=== PATIENT | female | born 1995 | race Caucasian/White ===

== ENCOUNTER 2017-07-30 12:00 | Emergency (ER) | payer OTHER ==
[2017-07-30] MEDS ORDERED: SODIUM CHLORIDE FLUSH 0.9% 10 ML SYRINGE IVP ONE (12:17)
[2017-07-30] MEDS ORDERED: SODIUM CHLORIDE 0.9% 1,000 ML IV ONE (14:26)
[2017-07-30] MEDS ORDERED: HYDROmorphone 1 MG/ML SYRINGE IVP STA ×2 (14:26→16:32)
[2017-07-30] MEDS ORDERED: ONDANSETRON 4 MG/2 ML VIAL IVP STA ×2 (14:26→16:33)
[2017-07-30] MEDS ORDERED: cefTRIAXone 1 GM in SODIUM CHLORIDE 0.9% MINIBAG 100 ML IV STA (14:27)
--- NOTE | 2017-07-30 14:27 | ED Physician Documentation ---
PD HPI ABD PAIN - Stated complaint Stated Complaint: ABD PX - Chief complaint Chief Complaint: Abd Pain - History obtained from History obtained from: Patient - History of Present Illness Timing - onset: How many weeks ago (1) Timing - duration: Weeks (1) Timing - details: Gradual onset, Still present Quality: Cramping, Aching, Pain Location: RLQ Radiation: Right flank Improved by: Position (lying on her side is only comfortable position.). No: Eating Worsened by: Position. No: Eating Associated symptoms: Nausea, Vomiting, Diarrhea (mild), Dysuria, Loss of appetite. No: Fever, Hematuria, Near syncope / syncope, Vaginal dc Similar symptoms before: Has not had sx before Recently seen: Clinic (for casting of ankle fracture few weeks ago. Had had some dysuria and seen in clinic few days ago and is on Macrobid for UTI based on UA.) Review of Systems Constitutional: reports: Chills, Myalgias. denies: Fever Nose: denies: Rhinorrhea / runny nose, Congestion Throat: denies: Sore throat Cardiac: denies: Chest pain / pressure Respiratory: denies: Dyspnea, Cough GI: reports: Abdominal Pain, Nausea, Vomiting, Diarrhea. denies: Bloody / black stool : reports: Dysuria. denies: Discharge Skin: denies: Rash, Lesions Neurologic: reports: Generalized weakness PD PAST MEDICAL HISTORY - Past Medical History Past Medical History: No Cardiovascular: None Respiratory: None Neuro: None Endocrine/Autoimmune: None GI: None - Past Surgical History Past Surgical History: No - Present Medications Home Medications: Ambulatory Orders Medication Instructions Recorded Confirmed HYDROcod/ACETAM 5/325 [[place] 5/325] 1 tab PO Q6H PRN #15 tablet 07/30/17 Nitrofurantoin [Macrobid] 100 mg PO DAILY 07/30/17 07/30/17 Ondansetron Odt [Zofran] 4 mg TL Q6H PRN #15 tablet 07/30/17 Phenazopyridine [Pyridium] 100 mg PO DAILY 07/30/17 07/30/17 - Allergies Allergies/Adverse Reactions: Allergies Allergy/AdvReac Type Severity Reaction Status Date / Time No Known Drug Allergies Allergy Verified 07/30/17 12:38 - Social History Does the pt smoke?: No Smoking Status: Never smoker Does the pt drink ETOH?: No Does the pt have substance abuse?: No - Immunizations Immunizations are current?: Yes PD ED PE NORMAL - Vitals Vital signs reviewed: Yes - General General: Alert and oriented X 3, Well developed/nourished, Other (appears uncomfortable and is curled on side with knees up. ) - HEENT HEENT: Pharynx benign. No: Moist mucous membranes - Neck Neck: Supple, no meningeal sign, No adenopathy - Cardiac Cardiac: RRR, No murmur - Respiratory Respiratory: Clear bilaterally - Abdomen Abdomen: Normal bowel sounds, Soft, Non distended, Other (tender mid abdomen and lower abd right more than left. ) - Female Female : Deferred - Rectal Rectal: Deferred - Back Back: No CVA TTP - Derm Derm: Normal color, Warm and dry, No rash - Extremities Extremities: No tenderness to palpate, Normal ROM s pain, Other (cast on left lower leg/ankle. No calf tenderness above the cast. ) - Neuro Neuro: Alert and oriented X 3, No motor deficit, Normal speech Results - Vitals Vitals: Vital Signs - 24 hr 07/30/17 07/30/17 07/30/17 12:02 14:59 17:52 Temperature 36.8 C 36.6 C Heart Rate 84 65 73 Respiratory 18 12 18 Rate Blood Pressure 128/67 120/61 117/66 O2 Saturation 95 95 99 Oxygen O2 Source Room air - Labs Labs: Laboratory Tests 07/30/17 07/30/17 07/30/17 12:20 12:20 14:46 WBC 7.4 RBC 4.75 Hgb 14.1 Hct 40.6 MCV 85.5 MCH 29.6 MCHC 34.6 RDW 13.1 Plt Count 326 MPV 8.7 Neut # 3.8 Lymph # 3.1 [place] # 0.3 Eos # 0.1 Baso # 0.1 Absolute Nucleated RBC 0.00 Nucleated RBCs 0.0 Sodium 139 Potassium 3.9 Chloride 105 Carbon Dioxide 26 Anion Gap 8.0 BUN 6 Creatinine 0.5 Estimated GFR (MDRD) 154 Glucose 97 Calcium 9.2 Total Bilirubin 0.4 AST 39 ALT 61 H Alkaline Phosphatase 63 Total Protein 8.1 Albumin 4.5 Globulin 3.6 Albumin/Globulin Ratio 1.3 Lipase 28 Urine Color YELLOW Urine Clarity CLEAR Urine pH 7.0 Ur Specific [place] 1.010 Urine Protein NEGATIVE Urine Glucose (UA) NEGATIVE Urine Ketones NEGATIVE Urine Occult Blood NEGATIVE Urine Nitrite NEGATIVE Urine Bilirubin NEGATIVE Urine Urobilinogen 0.2 (NORMAL) Ur Leukocyte Esterase SMALL H Urine RBC 0-5 Urine WBC 6-10 H Ur Squamous Epith Cells MANY Squamous H Urine Bacteria Rare Ur Microscopic Review INDICATED Urine Culture Comments NOT INDICATED Urine HCG, Qual NEGATIVE - Rads (name of study) abd/pelvic CT Radiology: Prelim report reviewed (no acute process to account for pain. Normal appendix. ), EMP read contemporaneously pelvic U/S Radiology: Prelim report reviewed (normal for age. Normal blood flow to ovaries. ) PD MEDICAL DECISION MAKING - ED course Complexity details: reviewed results (no obvious process on CT to cause the pain. Consider then pelvic cause and did U/S. This was normal as well. ), considered differential (given IV fluids and meds for symptoms. Urine is looking okay, so presume macrobid is working. She was having the stomach pain and some diarrhea prior to the abx, so not likely caused by that. Could be viral GE. Labs are looking okay otherwise (CT and US).), d/w patient Departure - Departure Disposition: Home, Self Care Clinical Impression: Nausea Abdominal pain Qualifiers: Abdominal location: lower abdomen, unspecified Qualified Code(s): R10.30 - Lower abdominal pain, unspecified Condition: Stable Record reviewed to determine appropriate education?: Yes Instructions: ED Abdominal Pain Unkn Cause Follow-Up: [facility] [Provider Group] Prescriptions: HYDROcod/ACETAM 5/325 [[place] 5/325] 1 tab PO Q6H PRN #15 tablet PRN Reason: Pain Ondansetron Odt [Zofran] 4 mg TL Q6H PRN #15 tablet PRN Reason: Nausea / Vomiting Comments: Small frequent fluids. Your CT and ultrasound did not show obvious cause for the pain at this time. You can continue the antibiotic you have for the bladder. Your urine today looks okay so presumably is clearing it. Use ondansetron if needed for the nausea. Tylenol or hydrocodone if needed for pains. Follow-up with your primary care in 2-3 days. Return sooner if worse again. Discharge Date/Time: 07/30/17 18:31
[2017-07-30] MEDS ORDERED: HYDROmorphone 1 MG/ML SYRINGE ONE ×2 (14:33→17:12)
[2017-07-30] MEDS ORDERED: ONDANSETRON 4 MG/2 ML VIAL ONE ×2 (14:34→17:12)
[2017-07-30] MEDS ORDERED: cefTRIAXone 1 GM VIAL ONE (14:34)
[2017-07-30 14:38] LABS: BASOPHILS # (AUTO) 0.1 10^3/uL (0.0-0.1); BASOPHILS % (AUTO) 0.9 %; EOSINOPHILS # (AUTO) 0.1 10^3/uL (0.0-0.7); EOSINOPHILS % (AUTO) 1.5 %; HCT - HEMATOCRIT 40.6 % (37.0-47.0); HGB - HEMOGLOBIN 14.1 g/dL (12.0-16.0); LYMPHOCYTES # (AUTO) 3.1 10^3/uL (1.5-3.5); MEAN CORPUSCULAR HEMOGLOBIN 29.6 pg (27.0-31.0); MEAN CORPUSCULAR HGB CONC 34.6 g/dL (32.0-36.0); MEAN CORPUSCULAR VOLUME 85.5 fL (81.0-99.0); MEAN PLATELET VOLUME 8.7 fL (7.9-10.8); MONOCYTES # (AUTO) 0.3 10^3/uL (0.0-1.0); MONOCYTES % (AUTO) 3.9 %; NEUTROPHILS # (AUTO) 3.8 10^3/uL (1.5-6.6); NEUTROPHILS % (AUTO) 51.7 %; RED BLOOD COUNT 4.75 10^6/uL (4.20-5.40); RED CELL DISTRIBUTION WIDTH 13.1 % (12.0-15.0); UNCORRECTED WHITE BLOOD COUNT 7.4 x10^3/uL; WHITE BLOOD COUNT 7.4 x10^3/uL (4.8-10.8)
[2017-07-30 14:46] LABS: ALBUMIN/GLOBULIN RATIO 1.3 (1.0-2.2); BILIRUBIN,TOTAL 0.4 mg/dL (0.2-1.0); CALCIUM 9.2 mg/dL (8.5-10.3); CREATININE 0.5 mg/dL (0.4-1.0); POTASSIUM 3.9 mmol/L (3.5-5.0); TOTAL PROTEIN 8.1 g/dL (6.7-8.2)
[2017-07-30 15:17] LABS: BILIRUBIN,URINE NEGATIVE (NEGATIVE)
[2017-07-30 15:21] LABS: HCG UR QUAL NEGATIVE; UA w/ MICROSCOPIC CHARGE YES
[2017-07-30 15:27] LABS: UR CULTURE IF IND NOT INDICATED
[2017-07-30] MEDS ORDERED: IOPAMIDOL-300 100 ML VIAL ONE (15:37)
[2017-07-30] MEDS ORDERED: IOPAMIDOL-300 100 ML VIAL IVP ONE (15:47)
--- NOTE | 2017-07-30 16:19 | CT Preliminary Report ---
Exam: CT Abdomen/Pelvis W/ IMPRESSION: 1. Negative exam. No CT abnormality to explain symptoms. 2. Appendix appears normal. 3. No localizing inflammatory process. [facility] SITE ID: [id number]
--- NOTE | 2017-07-30 16:22 | CT Report ---
EXAM: CT ABDOMEN AND PELVIS EXAM DATE: 07/30/2017 03:56 PM. CLINICAL HISTORY: RLQ pain for a week, worsening. COMPARISONS: None. TECHNIQUE: Routine helical CT imaging was performed through the abdomen and pelvis. IV contrast: 100 cc Isovue-300 IV. Enteric contrast: No. Reconstructions: Coronal and sagittal. In accordance with CT protocol optimization, one or more of the following dose reduction techniques w ere utilized for this exam: automated exposure control, adjustment of mA and/or KV based on patient s ize, or use of iterative reconstructive technique. FINDINGS: Lung Bases: Unremarkable. Liver: Normal. No masses. Gallbladder/Bile Ducts: Unremarkable. Spleen: Normal. Pancreas: Normal. Adrenal Glands: Normal. Kidneys: Normal. No masses or hydronephrosis. Peritoneal Cavity/Bowel: Normal. No free fluid, free air or adenopathy. No masses or acute inflammato ry process. The appendix is well visualized and normal. Pelvic Organs: Uterus and ovaries appear normal in size for age. Urinary bladder is unremarkable. Vasculature: No aneurysms or other significant abnormality. Bones: No significant abnormality. Other: None. IMPRESSION: 1. Negative exam. No CT abnormality to explain symptoms. 2. Appendix appears normal. 3. No localizing inflammatory process. [facility] Referring Provider Line: [phone] SITE ID: [id number]
[2017-07-30] MEDS ORDERED: KETOROLAC 60 MG/2 ML VIAL IVP STA (16:32)
[2017-07-30] MEDS ORDERED: FAMOTIDINE 20 MG/50 ML 50 ML IV ONE ×2 (16:34→17:12)
--- NOTE | 2017-07-30 17:45 | Ultrasound Preliminary Report ---
Exam: US Pel Non OB w/TV + Dop Ltd IMPRESSION: 1. Normal premenopausal sonographic appearance of the uterus and ovaries. 2. Arterial and venous blood flow present in the ovaries bilaterally. [facility] SITE ID: [id number]
--- NOTE | 2017-07-30 17:48 | Ultrasound Report ---
EXAM: PELVIC ULTRASOUND EXAM DATE: 07/30/2017 05:31 PM. CLINICAL HISTORY: Right lower abdominal pain for few days. LMP 07/07/2017. COMPARISON: CT evidence of pelvis, same day. TECHNIQUE: Realtime transabdominal pelvic scan performed to identify the uterus and adnexa and as an overview of other pelvic structures, followed by transvaginal scan to provide greater detail of the u terus and adnexa, with static image documentation. Doppler spectral analysis performed to evaluate bl ood flow to the ovaries given reported right-sided pain. FINDINGS: Uterus: Anteverted position. 7.3 x 2.7 x 4.0 cm, volume 41 cc. Homogeneous myometrial echotexture. Endometrium: 5 mm. Normal. Cervix: Nabothian cysts. Right Ovary: 3.6 x 2.0 x 3.7 cm, volume 13.9 cc. Normal echotexture. Contains normal follicles. Arter ial and venous blood flow are present. Left Ovary: 3.9 x 2.0 x 2.2 cm, volume 9.0 cc. Normal echotexture. Contains normal follicles. Arteria l and venous blood flow are present. Free Fluid: Trace anechoic intrapelvic free fluid, within physiologic limits in a young female. Other: None. IMPRESSION: 1. Normal premenopausal sonographic appearance of the uterus and ovaries. 2. Arterial and venous blood flow present in the ovaries bilaterally. [facility] Referring Provider Line: [phone] SITE ID: [id number]
[2017-07-30] MEDS ORDERED: KETOROLAC 30 MG/ML VIAL ONE (17:51)
[2017-07-30 17:53] VITALS: BP 117/66
== END 2017-07-30 18:31 | disposition home or self-care (01) ==
LOC: ED 12:00
DX: R11.2 Nausea with vomiting, unspecified (principal); R10.31 Right lower quadrant pain
CPT/HCPCS: 36415; 74177; 76830; 76856; 80053; 81001; 81025; 83690; 85025; 93976; 96374; 96375; 96376; 99284; J1170; Q9967; 81003; 87086

== ENCOUNTER 2017-08-01 00:20 | Outpatient (CLI) | payer OTHER | END 2017-08-01 00:21 | disposition EMS.NT | LOC: EMS 00:20 | PROVIDERS: ATTEND Surgery | DX: M54.9 Dorsalgia, unspecified (principal) ==

== ENCOUNTER 2017-08-01 01:06 | Emergency (ER) | payer OTHER ==
[2017-08-01] MEDS ORDERED: SODIUM CHLORIDE 0.9% 1,000 ML IV ONE ×3 (03:25→05:30)
[2017-08-01] MEDS ORDERED: KETOROLAC 60 MG/2 ML VIAL IVP STA (03:25)
[2017-08-01] MEDS ORDERED: ONDANSETRON 4 MG/2 ML VIAL IVP STA ×2 (03:25→06:48)
[2017-08-01 03:32] LABS: BASOPHILS # (AUTO) 0.1 10^3/uL (0.0-0.1); BASOPHILS % (AUTO) 0.8 %; EOSINOPHILS # (AUTO) 0.1 10^3/uL (0.0-0.7); EOSINOPHILS % (AUTO) 1.4 %; HCT - HEMATOCRIT 39.6 % (37.0-47.0); HGB - HEMOGLOBIN 13.8 g/dL (12.0-16.0); LYMPHOCYTES # (AUTO) 3.3 10^3/uL (1.5-3.5); LYMPHOCYTES % (AUTO) 39.7 %; MEAN CORPUSCULAR HEMOGLOBIN 30.3 pg (27.0-31.0); MEAN CORPUSCULAR HGB CONC 34.8 g/dL (32.0-36.0); MEAN CORPUSCULAR VOLUME 87.2 fL (81.0-99.0); MEAN PLATELET VOLUME 8.7 fL (7.9-10.8); MONOCYTES # (AUTO) 0.6 10^3/uL (0.0-1.0); MONOCYTES % (AUTO) 7.2 %; NEUTROPHILS # (AUTO) 4.3 10^3/uL (1.5-6.6); NEUTROPHILS % (AUTO) 50.9 %; NUCLEATED RED BLOOD CELLS AUTO 0.2 /100WBC; RED BLOOD COUNT 4.54 10^6/uL (4.20-5.40); RED CELL DISTRIBUTION WIDTH 13.3 % (12.0-15.0); UNCORRECTED WHITE BLOOD COUNT 8.4 x10^3/uL; WHITE BLOOD COUNT 8.4 x10^3/uL (4.8-10.8)
[2017-08-01] MEDS ORDERED: ONDANSETRON 4 MG/2 ML VIAL ONE ×2 (03:32→06:55)
[2017-08-01] MEDS ORDERED: KETOROLAC 30 MG/ML VIAL ONE (03:32)
[2017-08-01] MEDS ORDERED: SODIUM CHLORIDE FLUSH 0.9% 10 ML SYRINGE IVP ONE (03:35)
[2017-08-01 03:40] LABS: ALBUMIN/GLOBULIN RATIO 1.3 (1.0-2.2); BILIRUBIN,TOTAL 0.4 mg/dL (0.2-1.0); CALCIUM 8.6 mg/dL (8.5-10.3); CREATININE 0.6 mg/dL (0.4-1.0); POTASSIUM 3.6 mmol/L (3.5-5.0); TOTAL PROTEIN 7.9 g/dL (6.7-8.2)
--- NOTE | 2017-08-01 04:53 | ED Physician Documentation ---
PD HPI ABD PAIN - Stated complaint Stated Complaint: ABDOMINAL PAIN - Chief complaint Chief Complaint: Abd Pain - History obtained from History obtained from: Patient, Family - History of Present Illness Timing - onset: How many days ago (5) Timing - duration: Days (5) Timing - details: Gradual onset, Still present Quality: Sharp, Pain Location: RUQ Radiation: Right flank Improved by: Laying still Worsened by: Moving, Breathing, Position, Palpation Associated symptoms: Nausea, Vomiting. No: Diarrhea, Constipation Similar symptoms before: Has not had sx before Recently seen: Emergency Dept (Seen in the ED with pain 2 days ago with w/u including imaging) - Additional information Additional information: 22-year-old female has had a recent urinary tract infection was put on some Macrobid about 5 days ago. She began to develop pain and was seen in the emergency department 2 days ago and had workup including imaging with CT and ultrasound. She continued to have pain pain medication does not seem to be helping and she continues to have urinary symptoms. She is in significant pain in her right flank and has been in agony for hours. Review of Systems Constitutional: reports: Chills, Fatigue Eyes: denies: Decreased vision Ears: denies: Ear pain Nose: denies: Congestion Throat: denies: Sore throat Cardiac: denies: Chest pain / pressure, Palpitations Respiratory: denies: Dyspnea, Cough GI: reports: Abdominal Pain, Nausea, Vomiting : reports: Dysuria, Frequency. denies: Hematuria Skin: denies: Rash Musculoskeletal: reports: Back pain. denies: Neck pain, Extremity pain PD PAST MEDICAL HISTORY - Past Medical History Cardiovascular: None Respiratory: None Neuro: None Endocrine/Autoimmune: None GI: None - Past Surgical History Past Surgical History: No - Present Medications Home Medications: Ambulatory Orders Medication Instructions Recorded Confirmed HYDROcod/ACETAM 5/325 [[place] 5/325] 1 tab PO Q6H PRN #15 tablet 07/30/17 Nitrofurantoin [Macrobid] 100 mg PO DAILY 07/30/17 07/30/17 Ondansetron Odt [Zofran] 4 mg TL Q6H PRN #15 tablet 07/30/17 Phenazopyridine [Pyridium] 100 mg PO DAILY 07/30/17 07/30/17 HYDROcod/ACETAM 5/325 [[place] 5/325] 1 - 2 ea PO Q6H PRN #15 tablet 08/01/17 Ondansetron Odt [Zofran] 4 mg TL Q6H PRN #10 tablet 08/01/17 Sulfamethoxazole/Trimethoprim 1 each PO BID #14 tablet 08/01/17 [Sulfamethoxazole-Tmp Ds Tablet] - Allergies Allergies/Adverse Reactions: Allergies Allergy/AdvReac Type Severity Reaction Status Date / Time No Known Drug Allergies Allergy Verified 07/30/17 12:38 - Social History Does the pt smoke?: No Smoking Status: Never smoker Does the pt drink ETOH?: No Does the pt have substance abuse?: No - Immunizations Immunizations are current?: Yes PD ED PE NORMAL - Vitals Vital signs reviewed: Yes (Normal) - General General: Well developed/nourished, Other (The patient appears to be acutely in pain she is whimpering and laying in the position on her left side. She is favoring her right flank.) - HEENT HEENT: Atraumatic, PERRL - Neck Neck: Supple, no meningeal sign, No bony TTP - Cardiac Cardiac: RRR, No murmur - Respiratory Respiratory: No respiratory distress, Clear bilaterally - Abdomen Abdomen: Soft, Other (Right upper quadrant tenderness with maximal tenderness to the right kidney with bimanual palpation.) - Back Back: No spinal TTP, Other (Bilateral CVA tenderness much worse on the right than the left.) - Derm Derm: Normal color, Warm and dry, No rash - Extremities Extremities: No deformity, No edema - Neuro Neuro: No motor deficit, No sensory deficit, Normal speech - Psych Psych: Other (The mood is withdrawn and the affect is flat.) Results - Vitals Vitals: Vital Signs - 24 hr 08/01/17 01:27 Temperature 37.0 C Heart Rate 86 Respiratory 20 Rate Blood Pressure 129/78 O2 Saturation 99 Oxygen O2 Source Room air - Labs Labs: Laboratory Tests 08/01/17 08/01/17 08/01/17 01:56 01:56 04:59 WBC 8.4 RBC 4.54 Hgb 13.8 Hct 39.6 MCV 87.2 MCH 30.3 MCHC 34.8 RDW 13.3 Plt Count 321 MPV 8.7 Neut # 4.3 Lymph # 3.3 [place] # 0.6 Eos # 0.1 Baso # 0.1 Absolute Nucleated RBC 0.01 Nucleated RBCs 0.2 Sodium 138 Potassium 3.6 Chloride 102 Carbon Dioxide 29 Anion Gap 7.0 BUN 10 Creatinine 0.6 Estimated GFR (MDRD) 125 Glucose 119 H Calcium 8.6 Total Bilirubin 0.4 AST 36 ALT 58 Alkaline Phosphatase 62 Total Protein 7.9 Albumin 4.4 Globulin 3.5 Albumin/Globulin Ratio 1.3 Lipase 25 Urine Color YELLOW Urine Clarity SL. CLOUDY Urine pH 7.0 Ur Specific [place] <=1.005 Urine Protein NEGATIVE Urine Glucose (UA) NEGATIVE Urine Ketones NEGATIVE Urine Occult Blood TRACE-INTA Urine Nitrite POSITIVE H Urine Bilirubin NEGATIVE Urine Urobilinogen 0.2 (NORMAL) Ur Leukocyte Esterase LARGE H Urine RBC 0-5 Urine WBC 11-25 H Ur Squamous Epith Cells MOD Squamous H Urine Bacteria None Seen Ur Microscopic Review INDICATED Urine Culture Comments NOT INDICATED Urine HCG, Qual 08/01/17 05:50 WBC RBC Hgb Hct MCV MCH MCHC RDW Plt Count MPV Neut # Lymph # [place] # Eos # Baso # Absolute Nucleated RBC Nucleated RBCs Sodium Potassium Chloride Carbon Dioxide Anion Gap BUN Creatinine Estimated GFR (MDRD) Glucose Calcium Total Bilirubin AST ALT Alkaline Phosphatase Total Protein Albumin Globulin Albumin/Globulin Ratio Lipase Urine Color Urine Clarity Urine pH Ur Specific [place] 1.010 Urine Protein Urine Glucose (UA) Urine Ketones Urine Occult Blood Urine Nitrite Urine Bilirubin Urine Urobilinogen Ur Leukocyte Esterase Urine RBC Urine WBC Ur Squamous Epith Cells Urine Bacteria Ur Microscopic Review Urine Culture Comments Urine HCG, Qual NEGATIVE PD MEDICAL DECISION MAKING - ED course Complexity details: reviewed results, re-evaluated patient, considered differential, d/w patient, d/w family ED course: 22-year-old female with acute right flank pain appears to have pyelonephritis. She has significant pain and she is dehydrated. She is given IV saline and Toradol with some improvement in her pain examination of the urine shows what appears to be infected urine and the patient is on Macrobid. IV Rocephin is administered and a catheterized specimen is obtained prior to the rocephin. She does have some relief of her pain with the use of dilaudid. Departure - Departure Disposition: 01 Home, Self Care Clinical Impression: Pyelonephritis Condition: Stable Instructions: ED Kidney Infec Female Follow-Up: [facility] [Provider Group] Prescriptions: HYDROcod/ACETAM 5/325 [[place] 5/325] 1 - 2 ea PO Q6H PRN #15 tablet PRN Reason: Pain Sulfamethoxazole/Trimethoprim [Sulfamethoxazole-Tmp Ds Tablet] 1 each PO BID # 14 tablet Ondansetron Odt [Zofran] 4 mg TL Q6H PRN #10 tablet PRN Reason: Nausea / Vomiting Comments: Today it appears you have a kidney infection and the antibiotic you have been on does not appear to be treating this infection. Stop taking the Macrobid and start the sulfamethoxazole trimethoprim.
[2017-08-01 05:15] LABS: BILIRUBIN,URINE NEGATIVE (NEGATIVE)
[2017-08-01 05:16] LABS: UA w/ MICROSCOPIC CHARGE YES
[2017-08-01] MEDS ORDERED: cefTRIAXone 1 GM in SODIUM CHLORIDE 0.9% MINIBAG 100 ML IV STA (05:17)
[2017-08-01 05:27] LABS: UR CULTURE IF IND NOT INDICATED
[2017-08-01] MEDS ORDERED: HYDROmorphone 1 MG/ML SYRINGE IVP STA (05:30)
[2017-08-01] MEDS ORDERED: HYDROmorphone 1 MG/ML SYRINGE ONE (05:37)
[2017-08-01] MEDS ORDERED: cefTRIAXone 1 GM VIAL ONE (05:38)
[2017-08-01 06:22] LABS: HCG UR QUAL NEGATIVE
[2017-08-01 07:13] LABS: BILIRUBIN,URINE NEGATIVE (NEGATIVE); UA CHARGE (STRIP ONLY) YES; UR CULTURE IF IND NOT INDICATED
[2017-08-01] MEDS ORDERED: PROMETHAZINE INJ 25 MG in SODIUM CHLORIDE 0.9% 50 ML IV STA (07:42)
[2017-08-01] MEDS ORDERED: PROMETHAZINE 25 MG/1 ML VIAL ONE (07:49)
[2017-08-01 08:32] VITALS: BP 101/64
== END 2017-08-01 08:32 | disposition home or self-care (01) ==
LOC: ED 01:06
DX: N12 Tubulo-interstitial nephritis, not specified as acute or chronic (principal); E86.0 Dehydration
CPT/HCPCS: 36415; 51701; 80053; 81001; 81003; 81025; 83690; 85025; 96365; 96375; 96376; 99283; 99284; J1170; J7040; 87086

== ENCOUNTER 2017-08-27 02:37 | Emergency (ER) | payer OTHER ==
--- NOTE | 2017-08-27 03:52 | ED Physician Documentation ---
History of Present Illness - Stated complaint Stated Complaint: BACK PAIN - Chief complaint Chief Complaint: Back Pain - History obtained from History obtained from: Patient - History of Present Illness Timing: How many days ago (9) Pain level now: 8 Quality: sharp Improved by: nothing Worsened by: worse with PO intake, which also results in nausea - Additonal information Additional information: patient complains of a sharp pain in her back right flank radiating to right lower quadrant. Pain has been going on for nine days. Pain is worse with oral intake, which also leads to nausea and occasionally emesis. She had similar episodes twice last month and was evaluated in this emergency department, treated for pyelonephritis. unfortunately, the urine sample was contaminated with squamous skin cells, and thus a culture was not performed. she said she was seen at [facility] for follow up, but no tests nor treatments were done or provided. she returns to to recurrence of symptoms. Review of Systems Constitutional: reports: Reviewed and negative Cardiac: reports: Reviewed and negative Respiratory: reports: Reviewed and negative GI: reports: Abdominal Pain, Nausea, Vomiting : reports: Dysuria, Frequency Musculoskeletal: reports: Back pain PD PAST MEDICAL HISTORY - Past Medical History Cardiovascular: None Respiratory: None Neuro: None Endocrine/Autoimmune: None GI: None - Past Surgical History Past Surgical History: No - Present Medications Home Medications: Ambulatory Orders Medication Instructions Recorded Confirmed HYDROcod/ACETAM 5/325 [[place] 5/325] 1 - 2 ea PO Q6H PRN #15 tablet 08/27/17 Ondansetron HCl [Zofran] 4 mg PO Q6HR PRN #14 tablet 08/27/17 - Allergies Allergies/Adverse Reactions: Allergies Allergy/AdvReac Type Severity Reaction Status Date / Time No Known Drug Allergies Allergy Verified 08/27/17 02:46 - Social History Does the pt smoke?: No Smoking Status: Never smoker Does the pt drink ETOH?: No Does the pt have substance abuse?: No - Immunizations Immunizations are current?: Yes PD ED PE NORMAL - Vitals Vital signs reviewed: Yes - General General: Alert and oriented X 3, No acute distress, Well developed/nourished - HEENT HEENT: Moist mucous membranes - Cardiac Cardiac: RRR, No murmur - Respiratory Respiratory: No respiratory distress, Clear bilaterally - Abdomen Abdomen: Soft, Non tender, Non distended - Back Back: No CVA TTP - Derm Derm: Normal color, Warm and dry, No rash PD ED PE EXPANDED - Abdomen Abdomen: Tender to palpation, RLQ Results - Vitals Vitals: Vital Signs - 24 hr 08/27/17 08/27/17 05:26 08:51 Temperature 36.4 C L Heart Rate 74 64 Respiratory 18 12 Rate Blood Pressure 122/72 122/63 O2 Saturation 99 100 Oxygen O2 Source Room air - Labs Labs: Laboratory Tests 08/27/17 08/27/17 08/27/17 04:20 04:20 05:20 WBC 9.4 RBC 4.58 Hgb 13.9 Hct 39.4 MCV 86.1 MCH 30.4 MCHC 35.3 RDW 13.0 Plt Count 322 MPV 8.0 Neut # 5.8 Lymph # 2.6 [place] # 0.6 Eos # 0.3 Baso # 0.1 Absolute Nucleated RBC 0.00 Nucleated RBC % 0.0 Sodium 137 Potassium 3.8 Chloride 106 Carbon Dioxide 25 Anion Gap 6.0 BUN 10 Creatinine 0.5 Estimated GFR (MDRD) 154 Glucose 107 H Calcium 8.9 Total Bilirubin 0.6 AST 39 ALT 58 Alkaline Phosphatase 65 Total Protein 8.3 H Albumin 4.6 Globulin 3.7 Albumin/Globulin Ratio 1.2 Lipase 35 Urine Color YELLOW Urine Clarity CLEAR Urine pH 6.5 Ur Specific [place] 1.015 Urine Protein NEGATIVE Urine Glucose (UA) NEGATIVE Urine Ketones NEGATIVE Urine Occult Blood NEGATIVE Urine Nitrite NEGATIVE Urine Bilirubin NEGATIVE Urine Urobilinogen 0.2 (NORMAL) Ur Leukocyte Esterase NEGATIVE Ur Microscopic Review NOT INDICATED Urine Culture Comments NOT INDICATED - Rads (name of study) CT A/P Radiology: Prelim report reviewed, See rad report PD MEDICAL DECISION MAKING - ED course Complexity details: reviewed results, re-evaluated patient, considered differential, d/w patient Departure - Departure Disposition: 01 Home, Self Care Clinical Impression: Abdominal pain Condition: Good Instructions: ED Abdominal Pain Unkn Cause Follow-Up: [facility] [Provider Group] Prescriptions: Ondansetron HCl [Zofran] 4 mg PO Q6HR PRN #14 tablet PRN Reason: Nausea / Vomiting HYDROcod/ACETAM 5/325 [[place] 5/325] 1 - 2 ea PO Q6H PRN #15 tablet PRN Reason: Pain Discharge Date/Time: 08/27/17 08:57
[2017-08-27] MEDS ORDERED: KETOROLAC 60 MG/2 ML VIAL IVP STA (04:17)
[2017-08-27] MEDS ORDERED: SODIUM CHLORIDE 0.9% 1,000 ML IV STA (04:17)
[2017-08-27] MEDS ORDERED: ONDANSETRON 4 MG/2 ML VIAL IVP STA (04:17)
[2017-08-27] MEDS ORDERED: HYDROmorphone 0.5 MG/0.5 ML SYRINGE IVP STA (04:18)
[2017-08-27] MEDS ORDERED: HYDROmorphone 1 MG/ML SYRINGE ONE (04:23)
[2017-08-27] MEDS ORDERED: ONDANSETRON 4 MG/2 ML VIAL ONE (04:23)
[2017-08-27] MEDS ORDERED: KETOROLAC 30 MG/ML VIAL ONE (04:23)
[2017-08-27 04:29] LABS: BASOPHILS # (AUTO) 0.1 10^3/uL (0.0-0.1); BASOPHILS % (AUTO) 1.2 %; EOSINOPHILS # (AUTO) 0.3 10^3/uL (0.0-0.7); EOSINOPHILS % (AUTO) 2.7 %; HCT - HEMATOCRIT 39.4 % (37.0-47.0); HGB - HEMOGLOBIN 13.9 g/dL (12.0-16.0); LYMPHOCYTES # (AUTO) 2.6 10^3/uL (1.5-3.5); LYMPHOCYTES % (AUTO) 28.1 %; MEAN CORPUSCULAR HEMOGLOBIN 30.4 pg (27.0-31.0); MEAN CORPUSCULAR HGB CONC 35.3 g/dL (32.0-36.0); MEAN CORPUSCULAR VOLUME 86.1 fL (81.0-99.0); MONOCYTES # (AUTO) 0.6 10^3/uL (0.0-1.0); MONOCYTES % (AUTO) 6.5 %; NEUTROPHILS # (AUTO) 5.8 10^3/uL (1.5-6.6); NEUTROPHILS % (AUTO) 61.5 %; RED BLOOD COUNT 4.58 10^6/uL (4.20-5.40); UNCORRECTED WHITE BLOOD COUNT 9.4 x10^3/uL; WHITE BLOOD COUNT 9.4 x10^3/uL (4.8-10.8)
[2017-08-27 04:39] LABS: ALBUMIN/GLOBULIN RATIO 1.2 (1.0-2.2); BILIRUBIN,TOTAL 0.6 mg/dL (0.2-1.0); CALCIUM 8.9 mg/dL (8.5-10.3); CREATININE 0.5 mg/dL (0.4-1.0); POTASSIUM 3.8 mmol/L (3.5-5.0); TOTAL PROTEIN 8.3 g/dL (6.7-8.2)
[2017-08-27] MEDS ORDERED: IOPAMIDOL-300 100 ML VIAL ONE (04:39)
[2017-08-27] MEDS ORDERED: IOPAMIDOL-300 100 ML VIAL IVP ONE (05:05)
--- NOTE | 2017-08-27 05:28 | CT Preliminary Report ---
Exam: CT ABDOMEN/PELVIS W/ IMPRESSION: Stable negative abdomen and pelvis CT. [facility] SITE ID: [id number]
--- NOTE | 2017-08-27 05:33 | CT Report ---
EXAM: CT ABDOMEN AND PELVIS EXAM DATE: 08/27/2017 05:18 AM. CLINICAL HISTORY: Right lower quadrant pain. COMPARISONS: 07/30/[address] TECHNIQUE: Routine helical CT imaging was performed through the abdomen and pelvis. IV contrast: Yes . Enteric contrast: No . Reconstructions: Coronal and sagittal. In accordance with CT protocol optimization, one or more of the following dose reduction techniques w ere utilized for this exam: automated exposure control, adjustment of mA and/or KV based on patient s ize, or use of iterative reconstructive technique. FINDINGS: Lung Bases: Unremarkable. Liver: Unremarkable. No suspicious masses. Gallbladder/Bile Ducts: Unremarkable. Spleen: Unremarkable. Pancreas: Unremarkable. Adrenal Glands: Unremarkable. Kidneys: Unremarkable. No suspicious masses or hydronephrosis. Peritoneal Cavity/Bowel: No bowel obstruction or inflammatory process seen. No free air or significan t free fluid. No masses or adenopathy. The appendix is normal. No excessive stool burden. Pelvic Organs: Bladder, uterus, and adnexa appear unremarkable. Vasculature: No aneurysms or other significant abnormality. Bones: No significant abnormality. Other: None. IMPRESSION: Stable negative abdomen and pelvis CT. [facility] Referring Provider Line: [phone] SITE ID: [id number]
[2017-08-27 05:44] LABS: BILIRUBIN,URINE NEGATIVE (NEGATIVE); PH,URINE 6.5 PH (5.0-7.5)
[2017-08-27 06:39] LABS: UA CHARGE (STRIP ONLY) YES; UR CULTURE IF IND NOT INDICATED
[2017-08-27] MEDS ORDERED: ONDANSETRON ODT 4 MG TABLET TL STA (08:34)
[2017-08-27] MEDS ORDERED: HYDROcod/ACETAM 5/325 MG TABLET PO STA (08:34)
[2017-08-27] MEDS ORDERED: ONDANSETRON ODT 4 MG TABLET ONE (08:46)
[2017-08-27] MEDS ORDERED: HYDROcod/ACETAM 5/325 MG TABLET ONE (08:47)
[2017-08-27 08:52] VITALS: BP 122/63
== END 2017-08-27 08:57 | disposition home or self-care (01) ==
LOC: ED 02:37
DX: R10.31 Right lower quadrant pain (principal)
CPT/HCPCS: 36415; 74177; 80053; 81003; 83690; 85025; 96361; 96374; 96375; 96376; 99283; A9270; J1170; Q0162; Q9967; 81001; 87086

== ENCOUNTER 2017-08-28 23:11 | Outpatient (CLI) | payer OTHER | END 2017-08-28 23:12 | disposition critical access hospital (66) | LOC: EMS 23:11 | PROVIDERS: ATTEND Surgery | DX: M54.5 Low back pain (principal); R10.31 Right lower quadrant pain | CPT/HCPCS: A0425; A0429 ==

== ENCOUNTER 2017-08-28 23:29 | Emergency (ER) | payer OTHER ==
[2017-08-28] MEDS ORDERED: HYDROmorphone 0.5 MG/0.5 ML SYRINGE IVP SCH (23:45)
[2017-08-28] MEDS ORDERED: KETOROLAC 60 MG/2 ML VIAL IVP STA (23:53)
[2017-08-28] MEDS ORDERED: ONDANSETRON 4 MG/2 ML VIAL IVP STA (23:55)
--- NOTE | 2017-08-29 00:14 | ED Physician Documentation ---
PD HPI ABD PAIN - Stated complaint Stated Complaint: BACK PAIN - Chief complaint Chief Complaint: Back Pain - History obtained from History obtained from: Patient - History of Present Illness Timing - onset: How many weeks ago (1.5) Timing - details: Still present Quality: Pain Location: RUQ, RLQ Radiation: Right flank Worsened by: Eating Associated symptoms: Nausea, Vomiting (x 3 today.). No: Fever, Dysuria Recently seen: Emergency Dept - Treatment prior to arrival Treatment prior to arrival: Vicodin without relief. - Additional information Additional information: The patient is a 22-year-old female who presents with right flank pain radiating to her right upper quadrant, onset about 1-1/2 weeks ago, and worse since yesterday. She reports associated nausea and vomiting after eating. She has vomited 3 times today. She denies fever or dysuria. She was seen here last night with similar symptoms. Urinalysis at that time was negative, and CT scan of her abdomen and pelvis was negative. She was seen here 1 month ago with similar pain, and had CT scan of her abdomen and pelvis as well as ultrasound of her pelvis, which were nonrevealing. She was diagnosed with pyelonephritis and treated with Bactrim, but the urine sample was contaminated and no culture was performed. Review of Systems Constitutional: denies: Fever Nose: denies: Congestion Throat: denies: Sore throat Cardiac: denies: Chest pain / pressure Respiratory: denies: Dyspnea, Cough GI: reports: Abdominal Pain, Nausea, Vomiting. denies: Diarrhea : reports: LMP (May,), Irregular menses. denies: Dysuria, Vaginal bleeding Skin: denies: Rash Musculoskeletal: reports: Back pain (right flank) Neurologic: denies: Headache PD PAST MEDICAL HISTORY - Past Medical History Cardiovascular: None Respiratory: None Neuro: None Endocrine/Autoimmune: None GI: None : Chronic bladder infection - Past Surgical History Past Surgical History: No - Present Medications Home Medications: Ambulatory Orders Medication Instructions Recorded Confirmed HYDROcod/ACETAM 5/325 [Vicodin 1 - 2 ea PO Q6H PRN #20 tablet 08/29/17 5/325] raNITIdine [Zantac] 150 mg PO BID #30 tablet 08/29/17 - Allergies Allergies/Adverse Reactions: Allergies Allergy/AdvReac Type Severity Reaction Status Date / Time No Known Drug Allergies Allergy Verified 08/28/17 23:35 - Social History Does the pt smoke?: No Smoking Status: Never smoker Does the pt drink ETOH?: No Does the pt have substance abuse?: No - Immunizations Immunizations are current?: Yes PD ED PE NORMAL - Vitals Vital signs reviewed: Yes (borderline hypertension) - General General: Alert and oriented X 3, Well developed/nourished, Other (Appears uncomfortable, holding right side of abdomen.) - HEENT HEENT: Atraumatic, Pharynx benign - Neck Neck: No adenopathy, No JVD - Cardiac Cardiac: RRR, No murmur - Respiratory Respiratory: No respiratory distress, Clear bilaterally - Abdomen Abdomen: Normal bowel sounds, Soft, No organomegaly, Other (Tender to palpation of RUQ, with positive Abraham's sign. Also tender, but less so, in RLQ.) - Back Back: Other (Right CVA tenderness to percussion.) - Derm Derm: No rash - Extremities Extremities: No edema, No calf tenderness / cord - Neuro Neuro: Alert and oriented X 3, No motor deficit, Normal speech Results - Vitals Vitals: Vital Signs - 24 hr 08/28/17 08/29/17 08/29/17 23:32 03:26 04:14 Temperature 36.7 C 36.5 C 36.7 C Heart Rate 92 75 76 Respiratory 22 14 14 Rate Blood Pressure 138/87 H 113/58 L 110/62 O2 Saturation 100 100 96 Oxygen O2 Source Room air - Labs Labs: Laboratory Tests 08/28/17 08/28/17 08/28/17 00:05 00:05 23:50 WBC 9.7 RBC 4.47 Hgb 13.4 Hct 39.0 MCV 87.3 MCH 30.1 MCHC 34.4 RDW 13.3 Plt Count 316 MPV 7.6 L Neut # 6.1 Lymph # 2.9 [place] # 0.5 Eos # 0.2 Baso # 0.1 Absolute Nucleated RBC 0.00 Nucleated RBC % 0.0 Sodium 139 Potassium 3.8 Chloride 104 Carbon Dioxide 26 Anion Gap 9.0 BUN 8 Creatinine 0.5 Estimated GFR (MDRD) 154 Glucose 107 H Calcium 8.7 Total Bilirubin 0.6 AST 37 ALT 57 Alkaline Phosphatase 58 Total Protein 7.9 Albumin 4.3 Globulin 3.6 Albumin/Globulin Ratio 1.2 Lipase 28 Urine Color LT. YELLOW Urine Clarity CLEAR Urine pH 6.0 Ur Specific [place] 1.015 Urine Protein NEGATIVE Urine Glucose (UA) NEGATIVE Urine Ketones NEGATIVE Urine Occult Blood NEGATIVE Urine Nitrite NEGATIVE Urine Bilirubin NEGATIVE Urine Urobilinogen 0.2 (NORMAL) Ur Leukocyte Esterase NEGATIVE Ur Microscopic Review NOT INDICATED Urine Culture Comments NOT INDICATED Urine HCG, Qual NEGATIVE - Rads (name of study) RUQ U/S Radiology: Prelim report reviewed, EMP read contemporaneously, See rad report ( 1. Gallbladder wall thickening and positive sonographic Abraham sign. No gallstones are identified but the neck is not well seen. There could be cholecystitis. 2. No biliary dilatation seen. 3. Fatty liver.) PD MEDICAL DECISION MAKING - ED course Complexity details: reviewed old records, reviewed results, re-evaluated patient , considered differential, d/w patient, d/w family ED course: The patient's presentation is most consistent with gastritis versus peptic ulcer disease. Her presentation is not suggestive of pyelonephritis or pancreatitis. Biliary colic was considered, but right upper quadrant ultrasound reveals no evidence of cholelithiasis or biliary dilatation. Treatment in the emergency department included administration of Zofran 4 mg IV 2, ketorolac 30 mg IV, hydromorphone 1 mg IV 2, and GI cocktail. During her course of time in the emergency department the patient's abdominal pain resolved , and reexamination reveals a benign abdomen. I discussed with her and her the likely diagnosis, treatment and outpatient follow-up, as well as potentially worrisome signs or symptoms that should prompt reevaluation in the emergency department. She is being discharged with prescriptions for ranitidine and for Vicodin, 20 tablets. Departure - Departure Disposition: 01 Home, Self Care Clinical Impression: Abdominal pain Qualifiers: Abdominal location: right upper quadrant Qualified Code(s): R10.11 - Right upper quadrant pain Condition: Stable Instructions: ED Abdominal Pain Gallstone Poss, ED PUD Vs Gastritis Follow-Up: [facility] [Provider Group] Prescriptions: HYDROcod/ACETAM 5/325 [Vicodin 5/325] 1 - 2 ea PO Q6H PRN #20 tablet PRN Reason: Pain raNITIdine [Zantac] 150 mg PO BID #30 tablet Comments: Decrease caffeine intake, including coffee and javan. Take ranitidine twice daily as prescribed. You can use Vicodin as prescribed if needed for pain. You are not reliable to drive or operate machinery while taking the narcotic medication. Follow up with your primary physician within 1 week. Call to schedule appointment. You should discuss possible referral to [facility]. Return to the emergency department if you develop increasing abdominal pain, persistent vomiting, or otherwise worsening symptoms. Forms: Activity restrictions Discharge Date/Time: 08/29/17 04:19
[2017-08-29 00:20] LABS: BASOPHILS # (AUTO) 0.1 10^3/uL (0.0-0.1); BASOPHILS % (AUTO) 0.7 %; EOSINOPHILS # (AUTO) 0.2 10^3/uL (0.0-0.7); EOSINOPHILS % (AUTO) 1.7 %; HGB - HEMOGLOBIN 13.4 g/dL (12.0-16.0); LYMPHOCYTES # (AUTO) 2.9 10^3/uL (1.5-3.5); LYMPHOCYTES % (AUTO) 29.6 %; MEAN CORPUSCULAR HEMOGLOBIN 30.1 pg (27.0-31.0); MEAN CORPUSCULAR HGB CONC 34.4 g/dL (32.0-36.0); MEAN CORPUSCULAR VOLUME 87.3 fL (81.0-99.0); MEAN PLATELET VOLUME 7.6 fL (7.9-10.8); MONOCYTES # (AUTO) 0.5 10^3/uL (0.0-1.0); MONOCYTES % (AUTO) 5.4 %; NEUTROPHILS # (AUTO) 6.1 10^3/uL (1.5-6.6); NEUTROPHILS % (AUTO) 62.6 %; RED BLOOD COUNT 4.47 10^6/uL (4.20-5.40); RED CELL DISTRIBUTION WIDTH 13.3 % (12.0-15.0); UNCORRECTED WHITE BLOOD COUNT 9.7 x10^3/uL; WHITE BLOOD COUNT 9.7 x10^3/uL (4.8-10.8)
[2017-08-29 00:22] LABS: BILIRUBIN,URINE NEGATIVE (NEGATIVE)
[2017-08-29] MEDS ORDERED: HYDROmorphone 1 MG/ML SYRINGE ONE ×2 (00:23→01:59)
[2017-08-29] MEDS ORDERED: KETOROLAC 30 MG/ML VIAL ONE (00:23)
[2017-08-29] MEDS ORDERED: ONDANSETRON 4 MG/2 ML VIAL ONE ×2 (00:23→03:55)
[2017-08-29] MEDS ORDERED: SODIUM CHLORIDE FLUSH 0.9% 10 ML SYRINGE IVP ONE ×2 (00:23)
[2017-08-29 00:24] LABS: HCG UR QUAL NEGATIVE; UA CHARGE (STRIP ONLY) YES; UR CULTURE IF IND NOT INDICATED
[2017-08-29 00:39] LABS: ALBUMIN/GLOBULIN RATIO 1.2 (1.0-2.2); BILIRUBIN,TOTAL 0.6 mg/dL (0.2-1.0); CALCIUM 8.7 mg/dL (8.5-10.3); CREATININE 0.5 mg/dL (0.4-1.0); POTASSIUM 3.8 mmol/L (3.5-5.0); TOTAL PROTEIN 7.9 g/dL (6.7-8.2)
--- NOTE | 2017-08-29 01:58 | Ultrasound Preliminary Report ---
Exam: US ABDOMEN LIMITED IMPRESSION: 1. Gallbladder wall thickening and positive sonographic Abraham sign. No gallstones are identified but the neck is not well seen. There could be cholecystitis. 2. No biliary dilatation seen. 3. Fatty liver. [facility] SITE ID: [id number]
[2017-08-29] MEDS ORDERED: HYDROmorphone 0.5 MG/0.5 ML SYRINGE IVP SCH (02:00)
--- NOTE | 2017-08-29 02:01 | Ultrasound Report ---
EXAM: ABDOMEN ULTRASOUND LIMITED, RUQ EXAM DATE: 08/29/2017 01:29 AM. CLINICAL HISTORY: Right upper quadrant tenderness. COMPARISON: CT, 08/27/2017. TECHNIQUE: Real-time scanning was performed with static images obtained. FINDINGS: Liver: Echogenic, consistent with fatty infiltration. 13.9 cm. Main portal vein flow: Hepatopetal. Gallbladder: Wall thickening at 7 mm. Tenderness over the gallbladder. Positive sonographic Abraham si gn. No stones are seen. However, gallbladder neck was not well seen due to shadowing. Biliary System: CBD measures 4 mm. No intrahepatic or extrahepatic ductal dilatation. Other: Right kidney measures 10.8 cm. There is minimal fullness of the collecting system. Pancreas is poorly seen. IMPRESSION: 1. Gallbladder wall thickening and positive sonographic Abraham sign. No gallstones are identified but the neck is not well seen. There could be cholecystitis. 2. No biliary dilatation seen. 3. Fatty liver. [facility] Referring Provider Line: [phone] SITE ID: [id number]
[2017-08-29] MEDS ORDERED: MAG HYDROX/AL HYDROX/SIMETH 30 ML UDC PO STA (02:22)
[2017-08-29] MEDS ORDERED: PHENobarb/HYOSCY/ATROPINE/SCOP 5 ML SYRINGE PO STA (02:23)
[2017-08-29] MEDS ORDERED: LIDOCAINE VISCOUS 2% 15 ML UDC MM STA (02:23)
[2017-08-29] MEDS ORDERED: PHENobarb/HYOSCY/ATROPINE/SCOP 5 ML SYRINGE PO ONE (02:42)
[2017-08-29] MEDS ORDERED: MAG HYDROX/AL HYDROX/SIMETH 30 ML UDC ONE (02:43)
[2017-08-29] MEDS ORDERED: LIDOCAINE VISCOUS 2% 15 ML UDC MM ONE (02:43)
[2017-08-29] MEDS ORDERED: ONDANSETRON 4 MG/2 ML VIAL IVP STA (03:49)
[2017-08-29 04:19] VITALS: BP 110/62
== END 2017-08-29 04:19 | disposition home or self-care (01) ==
LOC: EDUNIT# → ED 23:29
DX: R10.11 Right upper quadrant pain (principal)
CPT/HCPCS: 36415; 76705; 80053; 81003; 81025; 83690; 85025; 96374; 96375; 96376; 99284; A9270; J1170; 81001; 87086

== ENCOUNTER 2017-10-10 10:53 | Day surgery (SDC) | payer OTHER ==
[2017-10-10 11:38] LABS: BASOPHILS # (AUTO) 0.1 10^3/uL (0.0-0.1); BASOPHILS % (AUTO) 0.8 %; EOSINOPHILS # (AUTO) 0.1 10^3/uL (0.0-0.7); EOSINOPHILS % (AUTO) 0.7 %; HCT - HEMATOCRIT 39.5 % (37.0-47.0); HGB - HEMOGLOBIN 13.8 g/dL (12.0-16.0); LYMPHOCYTES # (AUTO) 1.9 10^3/uL (1.5-3.5); LYMPHOCYTES % (AUTO) 23.6 %; MEAN CORPUSCULAR HEMOGLOBIN 30.1 pg (27.0-31.0); MEAN CORPUSCULAR HGB CONC 34.9 g/dL (32.0-36.0); MEAN CORPUSCULAR VOLUME 86.3 fL (81.0-99.0); MEAN PLATELET VOLUME 7.5 fL (7.9-10.8); MONOCYTES # (AUTO) 0.4 10^3/uL (0.0-1.0); MONOCYTES % (AUTO) 4.7 %; NEUTROPHILS # (AUTO) 5.6 10^3/uL (1.5-6.6); NEUTROPHILS % (AUTO) 70.2 %; RED BLOOD COUNT 4.58 10^6/uL (4.20-5.40); RED CELL DISTRIBUTION WIDTH 13.1 % (12.0-15.0); UNCORRECTED WHITE BLOOD COUNT 7.9 x10^3/uL; WHITE BLOOD COUNT 7.9 x10^3/uL (4.8-10.8)
[2017-10-10 11:50] LABS: ALBUMIN/GLOBULIN RATIO 1.2 (1.0-2.2); BILIRUBIN,TOTAL 0.3 mg/dL (0.2-1.0); CALCIUM 9.1 mg/dL (8.5-10.3); CREATININE 0.6 mg/dL (0.4-1.0); POTASSIUM 3.8 mmol/L (3.5-5.0); TOTAL PROTEIN 8.5 g/dL (6.7-8.2)
[2017-10-10 12:15] LABS: BILIRUBIN,URINE NEGATIVE (NEGATIVE); PH,URINE 6.5 PH (5.0-7.5)
[2017-10-10 12:19] LABS: HCG UR QUAL NEGATIVE; UA w/ MICROSCOPIC CHARGE YES
[2017-10-10 12:33] LABS: UR CULTURE IF IND NOT INDICATED; WBC,URINE 0-3 /HPF (0-5)
[2017-10-10] MEDS ORDERED: ONDANSETRON 4 MG/2 ML VIAL IVP STA (12:34)
[2017-10-10] MEDS ORDERED: MORPHINE 10 MG/ML VIAL IVP STA ×2 (12:34→13:26)
--- NOTE | 2017-10-10 12:34 | ED Physician Documentation ---
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 For the last 2 weeks she has had upper abdominal pain, especially after eating that radiates to the right flank associated with nausea and several several episodes of vomiting but no fevers or changes in bowel movements. Before 2 weeks ago she had never had this before.) Review of Systems Ten Systems: 10 systems reviewed and negative Constitutional: denies: Fever, Chills Throat: reports: Reviewed and negative Cardiac: reports: Reviewed and negative Respiratory: reports: Reviewed and negative PD PAST MEDICAL HISTORY - Past Medical History Past Medical History: No Cardiovascular: None Respiratory: None Neuro: None Endocrine/Autoimmune: None GI: None : Chronic bladder infection - Past Surgical History Past Surgical History: No - Present Medications Home Medications: Ambulatory Orders Medication Instructions Recorded Confirmed HYDROcod/ACETAM 5/325 [Vicodin 1 - 2 ea PO Q6H PRN #20 tablet 08/29/17 5/325] raNITIdine [Zantac] 150 mg PO BID #30 tablet 08/29/17 No Known Home Medications [No 10/10/17 10/10/17 Known Home Medications] - Allergies Allergies/Adverse Reactions: Allergies Allergy/AdvReac Type Severity Reaction Status Date / Time No Known Drug Allergies Allergy Verified 08/28/17 23:35 - Social History Does the pt smoke?: No Smoking Status: Never smoker Does the pt drink ETOH?: No Does the pt have substance abuse?: No - Family History Family history: reports: Non contributory - Immunizations Immunizations are current?: Yes PD ED PE NORMAL - Vitals Vital signs reviewed: Yes - General General: Alert and oriented X 3, Other (uncomfortable) - HEENT HEENT: PERRL, EOMI - Neck Neck: Supple, no meningeal sign, No bony TTP - Cardiac Cardiac: RRR, No murmur - Respiratory Respiratory: No respiratory distress, Clear bilaterally - Abdomen Abdomen: Normal bowel sounds, Soft, Other (Positive right upper quadrant tenderness with Abraham's sign, no diffuse tenderness.) - Back Back: No CVA TTP, No spinal TTP - Derm Derm: Normal color, Warm and dry - Extremities Extremities: No edema, No calf tenderness / cord - Neuro Neuro: Alert and oriented X 3, Normal speech - Psych Psych: Normal mood, Normal affect Results - Vitals Vitals: Vital Signs - 24 hr 10/10/17 10/10/17 10/10/17 11:03 13:41 17:27 Temperature 36.4 C L 37.0 C Heart Rate 84 77 Respiratory 16 18 Rate Blood Pressure 110/62 106/67 O2 Saturation 100 98 96 10/10/17 10/10/17 10/10/17 17:30 17:35 17:40 Temperature Heart Rate Respiratory Rate Blood Pressure O2 Saturation 96 98 98 10/10/17 10/10/17 10/10/17 17:45 17:50 17:54 Temperature Heart Rate Respiratory Rate Blood Pressure O2 Saturation 98 98 99 10/10/17 10/10/17 10/10/17 18:00 18:05 18:09 Temperature Heart Rate Respiratory Rate Blood Pressure O2 Saturation 100 100 100 10/10/17 10/10/17 10/10/17 18:14 18:20 18:25 Temperature Heart Rate Respiratory Rate Blood Pressure O2 Saturation 100 100 100 10/10/17 10/10/17 10/10/17 18:29 18:35 18:40 Temperature Heart Rate Respiratory Rate Blood Pressure O2 Saturation 100 100 100 10/10/17 10/10/17 10/10/17 18:45 18:50 18:55 Temperature Heart Rate Respiratory Rate Blood Pressure O2 Saturation 100 100 100 10/10/17 10/10/17 10/10/17 19:00 19:05 19:10 Temperature Heart Rate Respiratory Rate Blood Pressure O2 Saturation 100 100 100 10/10/17 10/10/17 10/10/17 19:14 19:20 19:25 Temperature Heart Rate Respiratory Rate Blood Pressure O2 Saturation 100 98 98 10/10/17 10/10/17 19:30 19:35 Temperature Heart Rate Respiratory Rate Blood Pressure O2 Saturation 98 97 Oxygen O2 Source Room air - Labs Labs: Laboratory Tests 10/10/17 10/10/17 10/10/17 11:32 11:32 12:04 WBC 7.9 RBC 4.58 Hgb 13.8 Hct 39.5 MCV 86.3 MCH 30.1 MCHC 34.9 RDW 13.1 Plt Count 338 MPV 7.5 L Neut # 5.6 Lymph # 1.9 [place] # 0.4 Eos # 0.1 Baso # 0.1 Absolute Nucleated RBC 0.00 Nucleated RBC % 0.0 Sodium 138 Potassium 3.8 Chloride 104 Carbon Dioxide 24 Anion Gap 10.0 BUN 6 Creatinine 0.6 Estimated GFR (MDRD) 125 Glucose 104 H Calcium 9.1 Total Bilirubin 0.3 AST 27 ALT 42 Alkaline Phosphatase 67 Total Protein 8.5 H Albumin 4.6 Globulin 3.9 Albumin/Globulin Ratio 1.2 Lipase 28 Urine Color YELLOW Urine Clarity CLEAR Urine pH 6.5 Ur Specific [place] <=1.005 Urine Protein NEGATIVE Urine Glucose (UA) NEGATIVE Urine Ketones NEGATIVE Urine Occult Blood LARGE H Urine Nitrite NEGATIVE Urine Bilirubin NEGATIVE Urine Urobilinogen 0.2 (NORMAL) Ur Leukocyte Esterase NEGATIVE Urine RBC TNTC H Urine WBC 0-3 Ur Squamous Epith Cells MANY Squamous H Urine Bacteria Many H Ur Microscopic Review INDICATED Urine Culture Comments NOT INDICATED Urine HCG, Qual NEGATIVE - Rads (name of study) RUQ [place] Radiology: EMP read contemporaneously (Cholelithiasis with a 4 mm common bile duct.) PD MEDICAL DECISION MAKING - ED course ED course: Previously healthy 22-year-old woman with abdominal pain reminiscent of biliary colic and finding of Cholelithiasis on ultrasound. There is no biochemical or imaging evidence of cholecystitis, that said despite divided doses of morphine and Dilaudid she still in significant pain and tender in the right upper quadrant so Dr. Wing, the on-call surgeon was consulted by phone at 2:05 PM and will be in to see the patient. After evaluation he is taking the patient for laparoscopic cholecystectomy. Departure - Departure Disposition: ED Transfer to [facility] Clinical Impression: Biliary colic Condition: Stable Discharge Date/Time: 10/10/17 15:16
[2017-10-10] MEDS ORDERED: ONDANSETRON 4 MG/2 ML VIAL ONE (12:52)
[2017-10-10] MEDS ORDERED: MORPHINE 10 MG/ML VIAL ONE ×2 (12:52→13:34)
[2017-10-10 13:42] VITALS: BP 106/67
[2017-10-10] MEDS ORDERED: HYDROmorphone 1 MG/ML SYRINGE IVP STA (13:50)
--- NOTE | 2017-10-10 13:58 | Ultrasound Report ---
RIGHT UPPER QUADRANT ULTRASOUND: 10/10/2017 CLINICAL INDICATION: Pain. TECHNIQUE: Real-time scanning was performed with account service representative static images obtained. FINDINGS: The liver measures 14.8 cm. Hepatic echogenicity is normal. No intrahepatic biliary dila tation or focal parenchymal lesion is present. The common bile duct measures 4 mm. The gallbladder demonstrates multiple calculi. No wall thickening or pericholecystic fluid is present. The right ki dney measures 9.7 cm, and demonstrates no hydronephrosis. No free fluid is present. IMPRESSION: CHOLELITHIASIS. NO BILIARY OBSTRUCTION. JOB #: [id number] EXT JOB #:[id number]
[2017-10-10] MEDS ORDERED: HYDROmorphone 1 MG/ML SYRINGE ONE (13:59)
[2017-10-10] MEDS ORDERED: ACETAMINOPHEN 1,000 MG/100 ML 100 ML IV STA (14:15)
[2017-10-10] MEDS ORDERED: ACETAMINOPHEN 1,000 MG/100 ML 100 ML IV ONE (14:23)
--- NOTE | 2017-10-10 15:15 | CONSULTATION NOTE ---
Referring Provider Name of Referring Provider:: Hoa Consult Date: 10/10/17 Chief Complaint - Chief Complaint Chief Complaint: Severe postprandial right upper quadrant pain, unremitting History of Present Illness - Admitted From Admitted From:: Not admitted, rather brought as a same-day surgery from emergency departmen - History Obtained From Records Reviewed: Yes History obtained from: Patient Exam Limitations: None - History of Present Illness HPI Comment/Other: Persistent sharp right upper quadrant postprandial pain present for approximately the last 2 weeks but worse over the past 24-48 hours. The pain has a very sharp quality to it and is accompanied by nausea and some vomiting. The patient denies melena, hematemesis, or hematochezia. There is been no weight loss. The pain is described as lancinating and goes either back to front or front to back. The patient has not had these symptoms prior to 2 weeks ago. The ultrasound of her gallbladder that was performed in our emergency department was the first she had ever had. The pain may have been present in a much lesser form for months. History - Past Medical History Cardiovascular: reports: None Respiratory: reports: None Neuro: reports: None Endocrine/Autoimmune: reports: None GI: reports: None : reports: Chronic bladder infection Meds/Allgy - Home Medications Home Medications: Ambulatory Orders Medication Instructions Recorded Confirmed HYDROcod/ACETAM 5/325 [Vicodin 1 - 2 ea PO Q6H PRN #20 tablet 08/29/17 5/325] raNITIdine [Zantac] 150 mg PO BID #30 tablet 08/29/17 No Known Home Medications [No 10/10/17 10/10/17 Known Home Medications] - Allergies Allergies/Adverse Reactions: Allergies Allergy/AdvReac Type Severity Reaction Status Date / Time No Known Drug Allergies Allergy Verified 08/28/17 23:35 Review of Systems - Constitutional Constitutional: denies: Fatigue, Fever, Chills, Malaise, Weakness, Weight gain, Weight loss - Eyes Eyes: denies: Pain, Blurred vision - Ears, Nose & Throat Ears, Nose & Throat: denies: Ear pain, Hearing loss - Cardiovascular Cariovascular: denies: Irregular heart rate, Palpitations, Chest pain - Respiratory Respiratory: denies: Cough, Sputum production, Hemoptysis - Gastrointestinal Gastrointestinal: reports: Abdominal pain, Nausea, Vomiting, Reflux/heartburn. denies: Rectal bleeding, Black stools, Bloody stools - Genitourinary Genitourinary: denies: Dysuria, Frequency, Urgency, Hematuria, Incontinence - Musculoskeletal Musculoskeletal: denies: Muscle pain, Back pain - Integumentary Integumentary: denies: Rash - Neurological Neurological: denies: General weakness, Focal weakness, Headache, Dizziness, Numbness - Psychiatric Psychiatric: denies: Depression, Anxiety, Suicidal - Endocrine Endocrine: denies: Polyuria, Polydypsia - Hematologic/Lymphatic Hematologic/Lymphatic: denies: Anemia, Bruising Exam - Vital Signs Reviewed Vital Signs: Yes Vital Signs: Vital Signs x48h Temp Pulse Resp BP Pulse Ox 10/10/17 13:41 37.0 C 77 18 106/67 98 10/10/17 11:03 36.4 C L 84 16 110/62 100 - Physical Exam Comments/Other: General: 22 year old female examined in room 1 at [facility] s emergency department, appears stated age, well developed, well nourished, in mild distress due to pain in right upper quadrant HEENT: Normocephalic, atraumatic, extraocular movement intact, mucous membranes pink and moist, sclera anicteric and not injected Neck: Supple without pain on palpation, mass or bruit Cardiac: Regular rate and rhythm without rub, gallop, or murmur Chest: Clear to auscultation bilaterally Abdomen: Soft, tender in right upper quadrant without peritoneal signs, normoactive bowel sounds, no hepatomegaly, no splenomegaly Genitourinary: Deferred Rectal: Deferred Extremities: No gross neurovascular problem, no clubbing, cyanosis or edema Gait: Not evaluated. Psychiatric: Alert and oriented to person place and time, asks and answers questions appropriately, mood and affect appropriate, in moderate distress due to pain Conclusion/Plan - Diagnosis Diagnosis: Biliary colic, unremitting - Plan Plan: Laparoscopic cholecystectomy, possible open cholecystectomy, possible intraoperative cholangiogram, possible common bile duct exploration. The indications, procedure, alternatives including no surgery, possible risks including infection (deep or superficial), bleeding requiring transfusion (with all of its risks), common bile duct injury and were fully explained to the patient and all questions answered. I also explained the pathophysiology. I explained that following the surgery I did not want her lifting anything over 15 pounds for 6 weeks to allow for optimal healing and to decrease the likelihood that a hernia would occur. All questions were fully answered. Verbal and written consent was obtained. The patient, in preparation for surgery will be nothing by mouth, and receive 2 g of Ancef with induction. I asked her to contact me with any surgical questions and her concerns and she stated that she would. I asked her to let me know if there is any way we can make her say at [facility] more comfortable and she stated that she would let me know. 45 minutes of [id number] time spent with the patient, over 80% in discussion and coordination of her care - Lab Results Lab results reviewed: Yes Fish Bones: 10/10/17 11:32 10/10/17 11:32 - Diagnostic Imaging Results Diagnostic Imaging Results: positive: Final report reviewed - Other Other Results/Comments: Cristina disclaimer: This document was created in part using voice recognition technology. Because of the inherent limitations of the system ([employer] user manual states that the licensee understands that speech recognition is a statistical process and that recognition errors are inherent in the process), occasional same sounding word substitutions and grammatical errors do occur and persist despite proofreading. Please read this document for context.
[2017-10-10] MEDS ORDERED: MIDAZOLAM 2 MG/2 ML VIAL IVP ONE (15:41)
[2017-10-10] MEDS ORDERED: NEOSTIGMINE 1 MG/1 ML 10 ML MDV IVP ONE (15:41)
[2017-10-10] MEDS ORDERED: GLYCOPYRROLATE 1 MG/5 ML VIAL IVP ONE (15:41)
[2017-10-10] MEDS ORDERED: fentaNYL 100 MCG/2 ML VIAL IVP ONE (15:41)
[2017-10-10] MEDS ORDERED: ceFAZolin 1 GM VIAL IV ONE (15:41)
[2017-10-10] MEDS ORDERED: NALOXONE 0.4 MG/ML VIAL IVP ONE (15:41)
[2017-10-10] MEDS ORDERED: ROCURONIUM 50 MG/5 ML VIAL IVP ONE (15:41)
[2017-10-10] MEDS ORDERED: KETOROLAC 30 MG/ML VIAL IVP ONE (15:41)
[2017-10-10] MEDS ORDERED: PROPOFOL 200 MG/20 ML VIAL IVP ONE (15:41)
[2017-10-10] MEDS ORDERED: FLUMAZENIL 0.1 MG/1 ML 5 ML MDV IVP ONE (15:41)
[2017-10-10] MEDS ORDERED: DEXAMETHASONE 4 MG/ML VIAL IVP ONE (15:41)
[2017-10-10] MEDS ORDERED: ONDANSETRON 4 MG/2 ML VIAL IVP ONE (15:41)
[2017-10-10] MEDS ORDERED: LIDOCAINE-MPF 2% 5 ML VIAL IM ONE (15:41)
[2017-10-10] MEDS ORDERED: BUPIVACAINE 0.5% PF 30 ML VIAL SUBQ ONE (16:59)
[2017-10-10] MEDS ORDERED: LACTATED RINGERS 1,000 ML IV ONE ×2 (17:00→18:16)
--- NOTE | 2017-10-10 17:41 | OPERATIVE REPORT ---
Operative Report - General Procedure Date: 10/10/17 Planned Procedure: Laparoscopic cholecystectomy Pre-Op Diagnosis: Biliary colic, unremitting Procedure Performed: Laparoscopic cholecystectomy and umbilical herniorrhaphy Post Op Diagnosis: Biliary colic and umbilical hernia - Procedure Note Primary Surgeon: Arturo Wing MD Anesthesia Provider: Mike Hartley Anesthesia Technique: General ET tube, Local (30 mL 1/2% marcaine) Pathology: Gallbladder and stones to pathology IV Fluids (mL): 700 Estimated Blood Loss (mL): 10 Complications: None. - Other Other Information/Narrative: OPERATIVE DESCRIPTION/REPORT: After verbal and written informed consent was obtained detailing the risks of infection, bleeding with all of its risks including transfusion, common bile duct injury, and the patient was brought to the operative suite and placed in the supine position on the operating room table. Monitoring devices were applied along with TEDs and pneumatic compressive stockings. Care was taken to avoid pressure points. Prophylactic antibiotics were given. An adequate level of general endotracheal anesthesia was established by [name]. The abdomen was then prepped with ChloraPrep and draped in a sterile fashion. A "time in" then confirmed that the patient was identified with 3 identifiers ( name, date and medical record number), the history and physical was in the chart, the signed consent confirming the procedure was in the chart, the patient was in the correct position, the aforementioned prophylactic measures were in place or given, we had the correct personel and equipment to complete the procedure and that anesthesia, surgery and nursing were given an opportunity to express any concerns. The initial incision was at the umbilicus and dissection to the linea alba was completed using blunt dissection. The linea alba was grasped with a Pacheco and incised. In a similar manner the peritoneum was grasped and incised using Metzenbaum scissors. In this location, a 12 mm blunt tipped, balloon tipped port was placed and the balloon was inflated to keep the port in position. The abdominal cavity was insufflated with carbon dioxide to steady-state pressure of 15 mmHg. Three additional 5 mm ports were placed in standard location for laparoscopic cholecystectomy (subxiphoid and 2 right subcostal) under direct vision of the 30 degree laparoscope and without incident. The patient was then placed in reverse Trendelenburg position and was rotated slightly to their left. The gallbladder fundus was grasped with an atraumatic grasper. Multiple adhesions had to be taken down by blunt and sharp dissection along with electrocautery. Eventually, we identified the infundibulum, and this was then grasped and retracted inferior and laterally. Dissection was then begun in the angle of Calot. The cystic duct and (slightly medially and posteriorly) cystic artery were clearly identified. The critical view was obtained. Two clips proximally and one clip distally were used to control both the cystic duct and cystic artery. The clips were carefully placed to avoid occluding the juncture with the common bile duct. Both the cystic duct and then the cystic artery were then transected with laparoscopic salas. The gallbladder was then removed from its fossa in a retrograde fashion using electrocautery. With the 30 degree 5 mm scope in the subxiphoid position, the gallbladder was placed in an EndoCatch bag to be extracted through the 12 mm port site. I irrigated the right upper quadrant with a liter of warm sterile saline, and the area was aspirated dry. I inspected the gallbladder fossa and there was no bleeding or bile leak. Clips on the cystic duct and cystic artery appeared to be secure. I briefly visually explored the abdomen. There was no other evidence of overt pathology. I injected the port sites at the peritoneal, fascial, and skin levels under direct vision with 0.5% Marcaine. All ports and the EndoCatch containing the gallbladder were removed. Following gallbladder removal, the remaining carbon dioxide was expelled from the abdomen. The fascia at the umbilicus was reapproximated using 2 [id number] 0 Vicryl sutures. The skin at each port site was approximated using a subcuticular 4-0 Monocryl. The surgical count of instruments, needles and sponges was reported as correct twice. Mastisol, Steri-Strips and sterile surgical dressings were applied. The patient was then awakened from anesthesia, extubated, and having tolerated the procedure well, was transported to the recovery room. No complications were encountered. A "time out" confirmed the operation performed , the fluids given, the estimated blood loss and anesthesia, surgery and nursing were given an opportunuty to express any concerns.
[2017-10-10] MEDS ORDERED: ONDANSETRON 4 MG/2 ML VIAL IVP PRN (20:29)
[2017-10-10] MEDS ORDERED: ACETAMINOPHEN 1,000 MG/100 ML 100 ML IV SCH (21:00)
[2017-10-10] MEDS ORDERED: SODIUM CHLORIDE FLUSH 0.9% 10 ML SYRINGE IVP ONE ×2 (21:08→22:24)
[2017-10-10] MEDS: LACTATED RINGERS 1,000 ML IV SCH (22:15)
[2017-10-10] MEDS: KETOROLAC 15 MG/ML VIAL IVP SCH (22:22)
[2017-10-11] MEDS: HYDROcod/ACETAM 5/325 MG TABLET PO PRN ×2 (02:03→08:27)
[2017-10-11] MEDS: KETOROLAC 15 MG/ML VIAL IVP SCH ×2 (05:58→09:53)
[2017-10-11] MEDS: LACTATED RINGERS 1,000 ML IV SCH (08:27)
[2017-10-11] MEDS ORDERED: SODIUM CHLORIDE FLUSH 0.9% 10 ML SYRINGE IVP ONE (09:55)
== END 2017-10-11 09:30 | disposition home or self-care (01) ==
LOC: ED 10:53 → SDS 14:34 → OBS 17:40 → SDS 10-11 09:30
PROVIDERS: ATTEND Surgery
PROC: 0WQF0ZZ Repair Abdominal Wall, Open Approach (ICD-10-PCS; 2017-10-10)
PROC: 0FT44ZZ Resection of Gallbladder, Percutaneous Endoscopic Approach (ICD-10-PCS; principal; 2017-10-10 15:00)
DX: K80.10 Calculus of gallbladder with chronic cholecystitis without obstruction (principal); K42.9 Umbilical hernia without obstruction or gangrene
CPT/HCPCS: 36415; 47562; 49585; 76705; 80053; 81001; 81025; 83690; 85025; 96365; 96375; 96376; 99283; 99285; A9270; J0131; J1170; J7120; 81003; 87086

== ENCOUNTER 2019-08-18 18:58 | Emergency (ER) | payer OTHER ==
--- NOTE | 2019-08-18 20:25 | ED Physician Documentation ---
History of Present Illness - Stated complaint Stated Complaint: SEVERE BODY PAIN - Chief complaint Chief Complaint: General - History obtained from History obtained from: Patient - History of Present Illness Timing: How many days ago (3) Pain level now: 7 Improved by: rest Worsened by: movement - Additonal information Additional information: c/o 3 days of diffuse and symmetric joint pain. 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 Patient was diagnosed with RA and Sjogren's Syndrome 6 months ago. Review of Systems Constitutional: denies: Fever, Chills, Sweats Cardiac: reports: Reviewed and negative Respiratory: reports: Reviewed and negative GI: reports: Nausea. denies: Abdominal Pain, Vomiting, Constipation, Diarrhea : denies: Dysuria, Frequency Skin: denies: Rash Musculoskeletal: reports: Neck pain, Joint pain. denies: Back pain, Extremity swelling Neurologic: denies: Generalized weakness, Focal weakness, Numbness, Headache PD PAST MEDICAL HISTORY - Past Medical History Cardiovascular: None Respiratory: None Endocrine/Autoimmune: None GI: None : Chronic bladder infection - Past Surgical History Past Surgical History: No - Present Medications Home Medications: Ambulatory Orders Medication Instructions Recorded Confirmed Adalimumab [Humira Pen] 40 mg SUBQ ONCE 08/18/19 08/18/19 Amitriptyline [Elavil] 25 mg PO QPM 08/18/19 08/18/19 Calcium Carbonate/Vitamin D3 1 tab PO DAILY 08/18/19 08/18/19 [Calcium 600-Vit D3 400 Tablet] Ergocalciferol [Vitamin D2] 50,000 unit PO ONCE 08/18/19 08/18/19 Gabapentin 300 mg PO DAILY 08/18/19 08/18/19 Hydroxychloroquine [Plaquenil] 200 mg PO BID 08/18/19 08/18/19 Meloxicam 15 mg PO ONCE PRN 08/18/19 08/18/19 Pantoprazole Sodium [Protonix] 20 mg PO DAILY 08/18/19 08/18/19 predniSONE [Prednisone] 25 mg PO DAILY 08/18/19 08/18/19 Oxycodone HCl/Acetaminophen 1 - 2 each PO Q6H PRN #20 tablet 08/19/19 [Percocet 5-325 mg Tablet] predniSONE [Prednisone] 40 mg PO DAILY #10 tablet 08/19/19 - Allergies Allergies/Adverse Reactions: Allergies Allergy/AdvReac Type Severity Reaction Status Date / Time No Known Drug Allergies Allergy Verified 08/28/17 23:35 - Social History Does the pt smoke?: No Smoking Status: Never smoker Does the pt drink ETOH?: No Does the pt have substance abuse?: No - Immunizations Immunizations are current?: Yes PD ED PE NORMAL - Vitals Vital signs reviewed: Yes - General General: Alert and oriented X 3, Well developed/nourished, Other (appears uncomfortable, tearful at times) - Neck Neck: Supple, no meningeal sign - Cardiac Cardiac: RRR, No murmur, No gallop, No rub - Respiratory Respiratory: No respiratory distress, Clear bilaterally - Abdomen Abdomen: Soft, Non tender - Derm Derm: Normal color, Warm and dry, No rash - Extremities Extremities: No tenderness to palpate, Normal ROM s pain, No edema Results - Vitals Vitals: Vital Signs - 24 hr 08/18/19 08/18/19 08/18/19 19:05 19:45 21:13 Temperature 36.7 C Heart Rate 106 H 99 86 Respiratory 18 17 17 Rate Blood Pressure 123/81 H 121/97 H 109/70 O2 Saturation 100 99 99 08/19/19 08/19/19 08/19/19 00:02 01:25 03:10 Temperature 36.8 C Heart Rate 85 93 74 Respiratory 17 17 16 Rate Blood Pressure 123/86 H 123/82 H 135/92 H O2 Saturation 97 95 99 Oxygen O2 Source Room air - Labs Labs: Laboratory Tests 08/18/19 08/18/19 21:10 21:10 WBC 11.0 H RBC 4.60 Hgb 14.1 Hct 41.7 MCV 90.7 MCH 30.7 MCHC 33.8 RDW 12.3 Plt Count 379 MPV 9.6 Neut # (Auto) 6.6 Lymph # (Auto) 3.6 H [place] # (Auto) 0.5 Eos # (Auto) 0.2 Baso # (Auto) 0.1 Absolute Nucleated RBC 0.00 Nucleated RBC % 0.0 Sodium 140 Potassium 3.7 Chloride 106 Carbon Dioxide 24 Anion Gap 10.0 BUN 7 Creatinine 0.5 Estimated GFR (MDRD) 152 Glucose 96 Calcium 9.1 Total Bilirubin 0.7 AST 25 ALT 33 Alkaline Phosphatase 48 Total Protein 7.9 Albumin 4.3 Globulin 3.6 Albumin/Globulin Ratio 1.2 Lipase 31 PD MEDICAL DECISION MAKING - ED course Complexity details: reviewed results, re-evaluated patient, considered differential, d/w patient ED course: HPI s/o RA flare, and lab tests are reassuring. She had modest but transient improvement with 1mg IV Dilaudid. Given 2mg IV dilaudid and she subsequently developed diffuse, pruritic erythematous rash c/w urticaria. This responded well to IV benadryl. On reevaluation, she was drowsy but easily awakens to verbal stimulus. She appeared comfortable and reported adequate symptom control. Departure - Departure Disposition: 01 Home, Self Care Clinical Impression: Joint pain Condition: Good Instructions: ED Joint Pain, ED Arthritis Rheumatoid Follow-Up: Vickey Domínguez MD [Primary Care Provider] - Within 3 Days Prescriptions: Oxycodone HCl/Acetaminophen [Percocet 5-325 mg Tablet] 1 - 2 each PO Q6H PRN #20 tablet PRN Reason: pain predniSONE [Prednisone] 40 mg PO DAILY #10 tablet Comments: Take the prednisone 40mg by mouth once per day for five days, then resume your previous dose of 25mg by mouth once per day. Discharge Date/Time: 08/19/19 03:15
[2019-08-18] MEDS ORDERED: SODIUM CHLORIDE 0.9% 1,000 ML IV STA (20:49)
[2019-08-18] MEDS ORDERED: methylPREDNISolone SUCCINATE 125 MG/2 ML VIAL IVP STA (20:49)
[2019-08-18] MEDS ORDERED: ONDANSETRON 4 MG/2 ML VIAL IVP STA (20:50)
[2019-08-18] MEDS ORDERED: HYDROmorphone 1 MG/ML CARPUJECT IVP STA ×2 (20:50→22:51)
[2019-08-18 21:24] LABS: BASOPHILS # (AUTO) 0.1 10^3/uL (0.0-0.1); BASOPHILS % (AUTO) 0.9 %; EOSINOPHILS # (AUTO) 0.2 10^3/uL (0.0-0.7); EOSINOPHILS % (AUTO) 1.4 %; HGB - HEMOGLOBIN 14.1 g/dL (12.0-16.0); LYMPHOCYTES # (AUTO) 3.6 10^3/uL (1.5-3.5); LYMPHOCYTES % (AUTO) 32.8 %; MEAN CORPUSCULAR HEMOGLOBIN 30.7 pg (27.0-31.0); MEAN CORPUSCULAR HGB CONC 33.8 g/dL (32.0-36.0); MEAN CORPUSCULAR VOLUME 90.7 fL (81.0-99.0); MEAN PLATELET VOLUME 9.6 fL (7.9-10.8); MONOCYTES # (AUTO) 0.5 10^3/uL (0.0-1.0); MONOCYTES % (AUTO) 4.1 %; NEUTROPHILS # (AUTO) 6.6 10^3/uL (1.5-6.6); NEUTROPHILS % (AUTO) 60.4 %; PLT - PLATELET COUNT 379 10^3/uL (130-450); RED CELL DISTRIBUTION WIDTH 12.3 % (12.0-15.0)
[2019-08-18 21:37] LABS: ALBUMIN 4.3 g/dL (3.2-5.5); ALBUMIN/GLOBULIN RATIO 1.2 (1.0-2.2); BILIRUBIN,TOTAL 0.7 mg/dL (0.2-1.0); CALCIUM 9.1 mg/dL (8.5-10.3); CREATININE 0.5 mg/dL (0.4-1.0); TOTAL PROTEIN 7.9 g/dL (6.7-8.2)
[2019-08-18] MEDS ORDERED: diphenhydrAMINE INJ 50 MG/ML VIAL IVP STA (23:49)
[2019-08-19] MEDS ORDERED: ONDANSETRON 4 MG/2 ML VIAL IVP STA (01:11)
[2019-08-19] MEDS ORDERED: SODIUM CHLORIDE 0.9% 1,000 ML IV STA (01:12)
[2019-08-19] MEDS ORDERED: oxyCODONE/ACET 5/325 Prepack 4 PO STA (03:02)
[2019-08-19 03:11] VITALS: BP 135/92
== END 2019-08-19 03:15 | disposition home or self-care (01) ==
LOC: ED 18:58
DX: M25.50 Pain in unspecified joint (principal); M06.9 Rheumatoid arthritis, unspecified; Z87.39 Personal history of other diseases of the musculoskeletal system and connective tissue; L27.1 Localized skin eruption due to drugs and medicaments taken internally; T40.2X5A Adverse effect of other opioids, initial encounter; Y92.538 Other ambulatory health services establishments as the place of occurrence of the external cause
CPT/HCPCS: 36415; 80053; 83690; 85025; 96361; 96374; 96375; 96376; 99283; 99285; J1170; J1200

== ENCOUNTER 2020-01-29 21:50 | Emergency (ER) | payer OTHER ==
[2020-01-29] MEDS ORDERED: LIDOCAINE 2%-EPI 1:100000 20 ML MDV SUBQ STA (22:26)
[2020-01-29] MEDS ORDERED: TETANUS/DIPHTHERIA/PERTUSSIS 0.5 ML SYRINGE IM ONE (22:38)
--- NOTE | 2020-01-29 22:54 | ED Physician Documentation ---
PD HPI SKIN - Stated complaint Stated Complaint: LEG LAC - Chief complaint Chief Complaint: Laceration - History obtained from History obtained from: Patient (This pleasant 24-year-old female states that she was running outside tonight she came up on a fence and she tried to jump over the fence and the left lower leg caught the top of the fence and she sustained a small 4 cm lack to the proximal medial calf. She is unsure when her last te tanus is but believes it is well over 5 years ago.) Review of Systems Constitutional: reports: Reviewed and negative Eyes: reports: Reviewed and negative Ears: reports: Reviewed and negative Nose: reports: Reviewed and negative Throat: reports: Reviewed and negative Cardiac: reports: Reviewed and negative Respiratory: reports: Reviewed and negative Skin: reports: Laceration (s) (Left proximal medial calf) PD PAST MEDICAL HISTORY - Past Medical History Past Medical History: Yes Cardiovascular: None Respiratory: None Endocrine/Autoimmune: None GI: None : Chronic bladder infection Musculoskeletal: Fibromyalgia, Rheumatoid arthritis, Other Other Past Medical History: lupus - Past Surgical History Past Surgical History: Yes General: Cholecystectomy - Present Medications Home Medications: Ambulatory Orders Medication Instructions Recorded Confirmed Adalimumab [Humira Pen] 40 mg SUBQ ONCE 08/18/19 12/20/19 Amitriptyline [Elavil] 25 mg PO QPM 08/18/19 12/20/19 Calcium Carbonate/Vitamin D3 1 tab PO DAILY 08/18/19 12/20/19 [Calcium 600-Vit D3 400 Tablet] Ergocalciferol [Vitamin D2] 50,000 unit PO ONCE 08/18/19 12/20/19 Hydroxychloroquine [Plaquenil] 200 mg PO BID 08/18/19 12/20/19 Pantoprazole Sodium [Protonix] 20 mg PO DAILY 08/18/19 12/20/19 predniSONE [Prednisone] 40 mg PO DAILY #10 tablet 08/19/19 12/20/19 Cyclobenzaprine [Flexeril] 10 mg PO TID PRN #20 tablet 12/20/19 Duloxetine HCl 30 mg PO BID 12/20/19 12/20/19 clonazePAM [Clonazepam] 0.5 mg PO QPM 12/20/19 12/20/19 oxyCODONE/ACET 5/325 [Percocet 5 1 - 2 each PO Q6H PRN #14 tablet 12/20/19 mg/325 mg] - Allergies Allergies/Adverse Reactions: Allergies Allergy/AdvReac Type Severity Reaction Status Date / Time No Known Drug Allergies Allergy Verified 01/29/20 21:53 - Social History Does the pt smoke?: No Smoking Status: Never smoker Does the pt drink ETOH?: No Does the pt have substance abuse?: No - Immunizations Immunizations are current?: Yes - POLST Patient has POLST: No PD ED PE NORMAL - General General: Alert and oriented X 3 - HEENT HEENT: PERRL, EOMI - Respiratory Respiratory: No respiratory distress - Derm Derm: Normal color, Warm and dry PD ED PE EXPANDED - Derm Derm: Other (4 cm laceration to the proximal medial calf.) Results - Vitals Vitals: Vital Signs - 24 hr 01/29/20 21:53 Temperature 36.5 C Heart Rate 111 H Respiratory 14 Rate Blood Pressure 121/78 O2 Saturation 97 Oxygen O2 Source Room air Procedures - Laceration (location) Lower extremity left Medial Wound type: Linear, Clean Neurovascular status: Sensory intact, Vascular intact Tendon involvement: No: Tendon intact Anesthesia: Lidocaine 2% with epi Wound Preparation: Hibiclens Skin layer closure: Prolene, Size #-0 - enter number (4.0), Sutures - enter # (5) Other: Patient tolerated well, No complications, Neurovascular intact, Dressing applied, Tetanus booster given Complexity: Simple PD MEDICAL DECISION MAKING - ED course Complexity details: reviewed results, d/w patient Departure - Departure Disposition: 01 Home, Self Care Clinical Impression: Laceration Condition: Good Instructions: ED Laceration All Comments: Your laceration was closed with 5 sutures today. Keep wound clean dry and covered during today can apply a small amount of antibiotic ointment to it after showering. Thanks sutures need to come out 10 to 14 days. He can go to your primary care physician for that. Keep an eye out for any signs of infection, spreading/ increasing redness surrounding the laceration, pus draining out of the laceration, or pain out of proportion to the wound healing. He can take out Tylenol ibuprofen for any pain. You are also given a tetanus booster today in the ER.
[2020-01-29 23:08] VITALS: BP 124/74
== END 2020-01-29 23:07 | disposition home or self-care (01) ==
LOC: ED 21:50
DX: S81.812A Laceration without foreign body, left lower leg, initial encounter (principal); W26.8XXA Contact with other sharp object(s), not elsewhere classified, initial encounter; Y93.39 Activity, other involving climbing, rappelling and jumping off
CPT/HCPCS: 12002; 90471; 99283

== ENCOUNTER 2020-02-19 00:23 | Emergency (ER) | payer OTHER ==
--- NOTE | 2020-02-19 00:34 | ED Physician Documentation ---
History of Present Illness - Stated complaint Stated Complaint: NAILS IN ABD - History obtained from History obtained from: Patient - History of Present Illness Timing: Prior to arrival Pain level now: 4 Improved by: lying still Worsened by: movement, palpation - Additonal information Additional information: patient presents with nails embedded in her left flank. She says she went to sleep at approximately 5 PM. She says she awoke approximately 30-40 minutes prior to ED arrival and noted she was still wearing shoes and her day clothing. She then felt pain in her left flank and on inspection noticed a nail head flush with the skin of her left flank. She then noted two other nails. She contacted a friend who drove her to ED. Patient says she has no recollection of how this happened. She denies alcohol use, denies drug use. She says she has had other incidents where she sustained injury due to "sleepwalking". She strongly denies SI, denies intentionally doing this to herself and she says she has no reason to feel someone else did this to her. Review of Systems Cardiac: reports: Reviewed and negative Respiratory: reports: Reviewed and negative GI: reports: Abdominal Pain. denies: Abdominal Swelling, Nausea, Vomiting Skin: reports: Other (punctures (due to nails) left flank) PD PAST MEDICAL HISTORY - Past Medical History Cardiovascular: None Respiratory: None Endocrine/Autoimmune: None GI: None : Chronic bladder infection Musculoskeletal: Fibromyalgia, Rheumatoid arthritis, Other - Past Surgical History Past Surgical History: Yes General: Cholecystectomy - Present Medications Home Medications: Ambulatory Orders Medication Instructions Recorded Confirmed Adalimumab [Humira Pen] 40 mg SUBQ ONCE 08/18/19 12/20/19 Amitriptyline [Elavil] 25 mg PO QPM 08/18/19 12/20/19 Calcium Carbonate/Vitamin D3 1 tab PO DAILY 08/18/19 12/20/19 [Calcium 600-Vit D3 400 Tablet] Ergocalciferol [Vitamin D2] 50,000 unit PO ONCE 08/18/19 12/20/19 Hydroxychloroquine [Plaquenil] 200 mg PO BID 08/18/19 12/20/19 Pantoprazole Sodium [Protonix] 20 mg PO DAILY 08/18/19 12/20/19 predniSONE [Prednisone] 40 mg PO DAILY #10 tablet 10/06/19 02/06/20 Cyclobenzaprine [Flexeril] 10 mg PO TID PRN #20 tablet 12/20/19 Duloxetine HCl 30 mg PO BID 12/20/19 12/20/19 clonazePAM [Clonazepam] 0.5 mg PO QPM 12/20/19 12/20/19 oxyCODONE/ACET 5/325 [Percocet 5 1 - 2 each PO Q6H PRN #14 tablet 12/20/19 mg/325 mg] Cephalexin [Keflex] 500 mg PO Q6H #20 capsule 02/19/20 - Allergies Allergies/Adverse Reactions: Allergies Allergy/AdvReac Type Severity Reaction Status Date / Time No Known Drug Allergies Allergy Verified 01/29/20 21:53 - Social History Does the pt smoke?: No Smoking Status: Never smoker Does the pt drink ETOH?: No Does the pt have substance abuse?: No - Immunizations Immunizations are current?: Yes - POLST Patient has POLST: No PD ED PE NORMAL - Vitals Vital signs reviewed: Yes - General General: Alert and oriented X 3, No acute distress, Well developed/nourished - Cardiac Cardiac: RRR, No murmur - Respiratory Respiratory: No respiratory distress, Clear bilaterally - Abdomen Abdomen: Normal bowel sounds, Soft, Non tender, Non distended PD ED PE EXPANDED - Abdomen Abdomen Visual: 1 - deformity (nail head flush with skin with surrounding tenderness) 2 - deformity (nail head that is flush with her sports bra; it is below (not through) the breast tissue)) 3 - deformity (nail head flush with skin) 4 - deformity (nail head 2-3 mm protruded from skin with nail in the wall of the left flank) Results - Vitals Vitals: Vital Signs - 24 hr 02/19/20 02/19/20 00:35 03:53 Temperature 36.8 C Heart Rate 106 H 88 Respiratory 22 16 Rate Blood Pressure 125/95 H 122/78 O2 Saturation 97 98 Oxygen O2 Source Room air - Labs Labs: Laboratory Tests 02/19/20 02/19/20 02/19/20 00:50 00:50 00:50 WBC 11.6 H RBC 4.59 Hgb 14.3 Hct 42.3 MCV 92.2 MCH 31.2 H MCHC 33.8 RDW 12.3 Plt Count 369 MPV 9.6 Neut # (Auto) 5.7 Lymph # (Auto) 4.9 H [place] # (Auto) 0.7 Eos # (Auto) 0.2 Baso # (Auto) 0.1 Absolute Nucleated RBC 0.00 Nucleated RBC % 0.0 PT 11.9 INR 1.0 APTT 31.5 Sodium 137 Potassium 3.6 Chloride 102 Carbon Dioxide 24 Anion Gap 11.0 BUN 9 Creatinine 0.6 Estimated GFR (MDRD) 123 Glucose 94 Calcium 9.0 Total Bilirubin 0.9 AST 36 ALT 45 Alkaline Phosphatase 68 Total Protein 8.2 Albumin 4.6 Globulin 3.6 Albumin/Globulin Ratio 1.3 Lipase 22 - Rads (name of study) cxr Radiology: Prelim report reviewed, See rad report CT A/P Radiology: Prelim report reviewed, See rad report CT chest Radiology: Prelim report reviewed, See rad report PD MEDICAL DECISION MAKING - ED course Complexity details: reviewed results, re-evaluated patient, considered naheed foster, d/w patient ED course: cxr does not show evidence of ptx. Chest CT and CT A/P are reassuring in that all four nails have depths that are limited to SQ tissues (with one nail possibly in musculature of chest wall). Vital signs remained stable during ED observation and she her pain was controlled with IV morphine and then PO oxycodone. Prior to discharge, she was AAOx3, conversant and answering quickly and appropriately and in NAD. I asked her several times if she had intentionally done this, and she repeatedly denies this. She reiterates that she has had episodes of sleepwalking in the past, and has sustained injury in the past due to sleepwalking. I asked her if she felt safe going back home and she answers in the affirmative. Departure - Departure Disposition: Home, Self Care Clinical Impression: Puncture wound of abdomen Qualifiers: Encounter type: initial encounter Qualified Code(s): S31.139A - Puncture wound of abdominal wall without foreign body, unspecified quadrant without penetration into peritoneal cavity, initial encounter Condition: Good Instructions: ED Wound Puncture General Follow-Up: Vickey Domínguez MD [Primary Care Provider] - Within 3 Days Prescriptions: Cephalexin [Keflex] 500 mg PO Q6H #20 capsule Discharge Date/Time: 02/19/20 03:53
[2020-02-19] MEDS ORDERED: ONDANSETRON 4 MG/2 ML VIAL IVP STA (01:10)
[2020-02-19] MEDS ORDERED: MORPHINE 2 MG/ML CARPUJECT IVP STA ×2 (01:10→01:34)
[2020-02-19 01:13] LABS: BASOPHILS # (AUTO) 0.1 10^3/uL (0.0-0.1); BASOPHILS % (AUTO) 0.9 %; EOSINOPHILS # (AUTO) 0.2 10^3/uL (0.0-0.7); EOSINOPHILS % (AUTO) 1.5 %; HGB - HEMOGLOBIN 14.3 g/dL (12.0-16.0); LYMPHOCYTES # (AUTO) 4.9 10^3/uL (1.5-3.5); MEAN CORPUSCULAR HEMOGLOBIN 31.2 pg (27.0-31.0); MEAN CORPUSCULAR HGB CONC 33.8 g/dL (32.0-36.0); MEAN CORPUSCULAR VOLUME 92.2 fL (81.0-99.0); MEAN PLATELET VOLUME 9.6 fL (7.9-10.8); MONOCYTES # (AUTO) 0.7 10^3/uL (0.0-1.0); MONOCYTES % (AUTO) 6.3 %; NEUTROPHILS # (AUTO) 5.7 10^3/uL (1.5-6.6); NEUTROPHILS % (AUTO) 48.9 %; PLT - PLATELET COUNT 369 10^3/uL (130-450); RED BLOOD COUNT 4.59 10^6/uL (4.20-5.40); RED CELL DISTRIBUTION WIDTH 12.3 % (12.0-15.0); WHITE BLOOD COUNT 11.6 x10^3/uL (4.8-10.8)
[2020-02-19 01:16] LABS: PT - PROTHROMBIN TIME 11.9 secs (9.9-12.6)
[2020-02-19 01:23] LABS: PARTIAL THROMBOPLASTIN TIME 31.5 secs (24.9-33.3)
[2020-02-19] MEDS ORDERED: IOVERSOL 320 100 ML VIAL IVP ONE ×2 (01:24→01:56)
[2020-02-19 01:28] LABS: ALBUMIN 4.6 g/dL (3.2-5.5); ALBUMIN/GLOBULIN RATIO 1.3 (1.0-2.2); BILIRUBIN,TOTAL 0.9 mg/dL (0.2-1.0); CREATININE 0.6 mg/dL (0.4-1.0); TOTAL PROTEIN 8.2 g/dL (6.7-8.2)
--- NOTE | 2020-02-19 01:29 | XRAY Report ---
Reason: FB in chest/abd Procedure Date: 02/19/2020 Accession Number: [id number] / [id number] Procedure: XR - Chest 1 View X-Ray CPT Code: 44083 Final Report FULL RESULT: EXAM: CHEST RADIOGRAPHY EXAM DATE: 02/19/2020 01:17 AM. CLINICAL HISTORY: Foreign body in chest/abd. COMPARISON: None. TECHNIQUE: 1 view. FINDINGS: Lungs/Pleura: No alveolar consolidation or pleural effusion seen. No pneumothorax. Mediastinum: Within exam limitations, the cardiomediastinal contour is normal. Other: There are 3 linear metal foreign bodies in the soft tissues of the left lower chest/upper abdominal wall measuring up to 3 cm in length. IMPRESSION: 1. No acute cardiopulmonary abnormality seen. 2. Three linear metal foreign bodies in the soft tissues of the left lower chest/upper abdominal wall. Two of these appear to have a head such as a pin or small nail. RADIA
[2020-02-19] MEDS ORDERED: KETOROLAC 30 MG/ML VIAL ONE (02:16)
--- NOTE | 2020-02-19 02:22 | CT Report ---
Reason: FB through chest/abd. wall Procedure Date: 02/19/2020 Accession Number: [id number] / [id number] Procedure: CT - CHEST W CPT Code: Final Report FULL RESULT: EXAM: CT CHEST EXAM DATE: 02/19/2020 01:58 AM. CLINICAL HISTORY: Foreign body through chest/abd. wall. COMPARISONS: None. TECHNIQUE: Routine helical CT imaging was performed through the chest. IV contrast: Nonionic. Reconstructions: Coronal and sagittal. In accordance with CT protocol optimization, one or more of the following dose reduction techniques were utilized for this exam: automated exposure control, adjustment of mA and/or KV based on patient size, or use of iterative reconstructive technique. FINDINGS: Lungs/Pleura: Mild bibasilar atelectasis. No alveolar consolidation or pleural effusion seen. No pneumothorax. Mediastinum: Heart size is normal. No lymphadenopathy seen. Great vessels are unremarkable. Bones: Unremarkable. Visualized Abdomen: See separate abdomen and pelvis CT report. Other: There are 4 linear metal foreign bodies in the subcutaneous tissues of the left lower chest and upper abdominal wall, measuring up to 3 cm in length. IMPRESSION: 1. There are 4 linear metal foreign bodies in the subcutaneous tissues of the left lower chest and upper abdominal wall. 2. No other acute abnormality seen in the chest. RADIA
--- NOTE | 2020-02-19 02:23 | CT Report ---
Reason: multiple FB in abd/chest Procedure Date: 02/19/2020 Accession Number: [id number] / [id number] Procedure: CT - Abdomen/Pelvis W CPT Code: Final Report FULL RESULT: EXAM: CT ABDOMEN AND PELVIS EXAM DATE: 02/19/2020 01:58 AM. CLINICAL HISTORY: Multiple FB in abd/chest. COMPARISONS: ABDOMEN/PELVIS W/ 12/20/2019 9:24 PM. TECHNIQUE: Routine helical CT imaging was performed through the abdomen and pelvis. IV contrast: OPTIRAY 320. Enteric contrast: No. Reconstructions: Coronal and sagittal. In accordance with CT protocol optimization, one or more of the following dose reduction techniques were utilized for this exam: automated exposure control, adjustment of mA and/or KV based on patient size, or use of iterative reconstructive technique. FINDINGS: Lung Bases: Unremarkable. Liver: There is mild diffuse fatty infiltration of the liver. Gallbladder/Bile Ducts: Resected Spleen: Normal. Pancreas: Normal. Adrenal Glands: Normal. Kidneys: Normal. No masses or hydronephrosis. Peritoneal Cavity/Bowel: Normal. No free fluid, free air or adenopathy. No masses or acute inflammatory process. The appendix is well visualized and normal. Pelvic Organs: Normal. The bladder and visualized pelvic organs are within normal limits. Vasculature: No aneurysms or other significant abnormality. Bones: No significant abnormality. Other: There is a radiopaque linear opacity in the subcutaneous tissues in the left upper lateral abdominal wall. The distal aspect may be contiguous with the outer layer of the muscles of the left lower chest. In addition, there is another linear radiopacity in the left midabdomen involving the septum to his tissues. IMPRESSION: 1. Linear radiopacities larger within the subcutaneous tissues of the left lower thorax and left midabdomen. The more superior one may be slightly contiguous with the outer layers of the chest wall musculature. 2. There is no extension into the abdomen. No peritoneal free fluid. No pneumoperitoneum. RADIA
[2020-02-19] MEDS ORDERED: oxyCODONE 5 MG TABLET PO STA (03:01)
[2020-02-19] MEDS ORDERED: oxyCODONE/ACET 5/325 Prepack 4 PO STA (03:02)
[2020-02-19] MEDS ORDERED: cephALEXin 250 MG CAPSULE PO STA (03:04)
[2020-02-19 04:01] VITALS: BP 122/78
== END 2020-02-19 03:53 | disposition home or self-care (01) ==
LOC: ED 00:23
DX: S31.141A Puncture wound of abdominal wall with foreign body, left upper quadrant without penetration into peritoneal cavity, initial encounter (principal); S31.145A Puncture wound of abdominal wall with foreign body, periumbilic region without penetration into peritoneal cavity, initial encounter; W45.0XXA Nail entering through skin, initial encounter
CPT/HCPCS: 36415; 71045; 71260; 74177; 80053; 83690; 85025; 85610; 85730; 96374; 99283; 99284; A9270; Q9967; 86850; 86900; 86901

== ENCOUNTER 2020-03-30 20:08 | Outpatient (CLI) | payer OTHER | END 2020-03-30 23:59 | disposition critical access hospital (66) | LOC: EMS 20:08 | PROVIDERS: ATTEND Surgery | DX: S09.90XA Unspecified injury of head, initial encounter (principal); R41.82 Altered mental status, unspecified | CPT/HCPCS: A0425; A0429 ==

== ENCOUNTER 2020-03-30 20:20 | Inpatient (IN) | payer OTHER ==
[2020-03-30] MEDS ORDERED: ETOMIDATE 40 MG/20 ML VIAL IVP STA (20:29)
[2020-03-30] MEDS ORDERED: ROCURONIUM 50 MG/5 ML VIAL IVP STA (20:29)
[2020-03-30] MEDS ORDERED: PROPOFOL 500 MG/50 ML 500 MG/50 ML VIAL IV STA ×2 (20:30→22:21)
--- NOTE | 2020-03-30 20:34 | ED Physician Documentation ---
PD HPI ALTERED MENTAL STATUS - Stated complaint Stated Complaint: MHE - Chief complaint Chief Complaint: Neuro - History obtained from History obtained from: EMS - History of Present Illness Timing - onset: Today (24-year-old woman presents by ambulance, it was originally called out as a mental health evaluation because I guess she was acting odd in her backyard. On the way here she developed apnea and some decorticate posturing. Patient is comatose/GCS 3 on arrival with periods of apnea. Dilated pupils. Review of the chart shows some odd visit patterns lately, a visit last month for somehow having 4 nails stuck in her without a good explanation and prior to that a laceration from jumping over a fence.) Review of Systems Unable to obtain: AMS PD PAST MEDICAL HISTORY - Past Medical History Cardiovascular: None Respiratory: None Endocrine/Autoimmune: None GI: None : Chronic bladder infection Musculoskeletal: Fibromyalgia, Rheumatoid arthritis, Other - Past Surgical History Past Surgical History: Yes General: Cholecystectomy - Present Medications Home Medications: Ambulatory Orders Medication Instructions Recorded Confirmed Adalimumab [Humira Pen] 40 mg SUBQ ONCE 08/18/19 12/20/19 Amitriptyline [Elavil] 25 mg PO QPM 08/18/19 12/20/19 Calcium Carbonate/Vitamin D3 1 tab PO DAILY 08/18/19 12/20/19 [Calcium 600-Vit D3 400 Tablet] Ergocalciferol [Vitamin D2] 50,000 unit PO ONCE 08/18/19 12/20/19 Hydroxychloroquine [Plaquenil] 200 mg PO BID 08/18/19 12/20/19 Pantoprazole Sodium [Protonix] 20 mg PO DAILY 08/18/19 12/20/19 predniSONE [Prednisone] 40 mg PO DAILY #10 tablet 08/19/19 12/20/19 Cyclobenzaprine [Flexeril] 10 mg PO TID PRN #20 tablet 12/20/19 Duloxetine HCl 30 mg PO BID 12/20/19 12/20/19 clonazePAM [Clonazepam] 0.5 mg PO QPM 12/20/19 12/20/19 oxyCODONE/ACET 5/325 [Percocet 5 1 - 2 each PO Q6H PRN #14 tablet 12/20/19 mg/325 mg] - Allergies Allergies/Adverse Reactions: Allergies Allergy/AdvReac Type Severity Reaction Status Date / Time No Known Drug Allergies Allergy Verified 03/30/20 21:18 - Social History Does the pt smoke?: No Smoking Status: Never smoker Does the pt drink ETOH?: No Does the pt have substance abuse?: No - Immunizations Immunizations are current?: Yes - POLST Patient has POLST: No PD ED PE NORMAL - Vitals Vital signs reviewed: Yes - General General: Other (She is being bagged with an oral airway in place. She has dilated pupils. She does have spontaneous respiratory motion. I initially try to intubate her without any drugs, she had opening closing of the vocal cords, she did not fight it though, however she did gag just a bit necessitating medications.) - HEENT HEENT: Other (Dilated pupils bilaterally; There is an abrasion near the bridge of the nose) - Neck Neck: Supple, no meningeal sign, No bony TTP - Cardiac Cardiac: RRR, No murmur - Respiratory Respiratory: No respiratory distress, Clear bilaterally - Abdomen Abdomen: Normal bowel sounds, Soft, Non tender - Back Back: No CVA TTP, No spinal TTP - Derm Derm: Normal color, Warm and dry - Extremities Extremities: No edema, No calf tenderness / cord - Neuro Eye Opening: None Motor: None Verbal: None GCS Score: 3 Results - Vitals Vitals: Vital Signs - 24 hr 03/30/20 03/30/20 03/30/20 20:20 20:25 20:28 Temperature 34.9 C L 36.8 C Heart Rate 96 96 115 H Respiratory 31 H 31 H 24 Rate Blood Pressure 127/80 127/80 127/80 O2 Saturation 100 100 100 03/30/20 03/30/20 03/30/20 20:40 20:45 21:00 Temperature Heart Rate 98 93 90 Respiratory 20 18 22 Rate Blood Pressure 134/95 H 133/95 H 134/95 H O2 Saturation 100 100 100 03/30/20 03/30/20 03/30/20 21:05 21:10 21:20 Temperature Heart Rate 87 80 79 Respiratory 20 Rate Blood Pressure 129/92 H 129/77 118/79 O2 Saturation 100 03/30/20 03/30/20 03/30/20 21:29 21:37 21:49 Temperature 35.9 C L Heart Rate 78 76 74 Respiratory 18 18 18 Rate Blood Pressure 112/74 98/56 L 92/53 L O2 Saturation 100 100 100 03/30/20 22:07 Temperature Heart Rate 71 Respiratory 16 Rate Blood Pressure 97/73 O2 Saturation 100 Oxygen O2 Source Mechanical ventilator - EKG (time done) 2023 Rate: Rate (enter#) (109) Rhythm: Sinus tachycardia Fletcher: Normal Intervals: Normal MD, Prolonged QT (487msec) QRS: Normal Ischemia: Normal ST segments Computer interpretation: Agree with computer - Labs Labs: Laboratory Tests 03/30/20 03/30/20 03/30/20 20:30 20:30 20:30 WBC 9.8 RBC 4.40 Hgb 13.8 Hct 41.2 MCV 93.6 MCH 31.4 H MCHC 33.5 RDW 12.6 Plt Count 331 MPV 9.5 Neut # (Auto) 5.4 Lymph # (Auto) 3.8 H Mower # (Auto) 0.4 Eos # (Auto) 0.2 Baso # (Auto) 0.1 Absolute Nucleated RBC 0.00 Nucleated RBC % 0.0 PT 12.6 INR 1.1 Bld Gas Analysis Time Sample Site ABG pH ABG pCO2 ABG pO2 ABG HCO3 ABG Total CO2 ABG O2 Saturation ABG Base Excess Kenan Test VBG pH VBG pCO2 VBG pO2 VBG HCO3 VBG Total CO2 VBG O2 Saturation VBG Base Excess Respiration Rate O2 Delivery Device Vent Mode FiO2 Tidal Volume PEEP Sodium 141 Potassium 3.7 Chloride 110 Carbon Dioxide 24 Anion Gap 7.0 BUN < 5 L Creatinine 0.6 Estimated GFR (MDRD) 123 Glucose 82 Calcium 8.5 Total Bilirubin 0.6 AST 27 ALT 25 Alkaline Phosphatase 63 Total Creatine Kinase 149 Total Protein 7.4 Albumin 4.3 Globulin 3.1 Albumin/Globulin Ratio 1.4 Lipase 30 TSH HCG, Quant Urine Color Urine Clarity Urine pH Ur Specific [place] Urine Protein Urine Glucose (UA) Urine Ketones Urine Occult Blood Urine Nitrite Urine Bilirubin Urine Urobilinogen Ur Leukocyte Esterase Ur Microscopic Review Urine Culture Comments Urine HCG, Qual Salicylates < 6.0 Urine Opiates Screen Ur Oxycodone Screen Urine Methadone Screen Ur Propoxyphene Screen Acetaminophen < 10 L Ur Barbiturates Screen Ur Tricyclics Screen Ur Phencyclidine Scrn Ur Amphetamine Screen U Methamphetamines Scrn U Benzodiazepines Scrn Urine Cocaine Screen U Cannabinoids Screen Ethyl Alcohol 294.4 03/30/20 03/30/20 03/30/20 20:30 20:30 20:30 WBC RBC Hgb Hct MCV MCH MCHC RDW Plt Count MPV Neut # (Auto) Lymph # (Auto) Mower # (Auto) Eos # (Auto) Baso # (Auto) Absolute Nucleated RBC Nucleated RBC % PT INR Bld Gas Analysis Time Sample Site ABG pH ABG pCO2 ABG pO2 ABG HCO3 ABG Total CO2 ABG O2 Saturation ABG Base Excess Kenan Test VBG pH 7.290 L VBG pCO2 43.9 VBG pO2 43.5 VBG HCO3 20.6 L VBG Total CO2 22.0 L VBG O2 Saturation 78.3 VBG Base Excess -5.8 L Respiration Rate O2 Delivery Device Vent Mode FiO2 Tidal Volume PEEP Sodium Potassium Chloride Carbon Dioxide Anion Gap BUN Creatinine Estimated GFR (MDRD) Glucose Calcium Total Bilirubin AST ALT Alkaline Phosphatase Total Creatine Kinase Total Protein Albumin Globulin Albumin/Globulin Ratio Lipase TSH 0.39 HCG, Quant 218.43 Urine Color Urine Clarity Urine pH Ur Specific [place] Urine Protein Urine Glucose (UA) Urine Ketones Urine Occult Blood Urine Nitrite Urine Bilirubin Urine Urobilinogen Ur Leukocyte Esterase Ur Microscopic Review Urine Culture Comments Urine HCG, Qual Salicylates Urine Opiates Screen Ur Oxycodone Screen Urine Methadone Screen Ur Propoxyphene Screen Acetaminophen Ur Barbiturates Screen Ur Tricyclics Screen Ur Phencyclidine Scrn Ur Amphetamine Screen U Methamphetamines Scrn U Benzodiazepines Scrn Urine Cocaine Screen U Cannabinoids Screen Ethyl Alcohol 03/30/20 03/30/20 03/30/20 20:35 20:45 21:30 WBC RBC Hgb Hct MCV MCH MCHC RDW Plt Count MPV Neut # (Auto) Lymph # (Auto) Mower # (Auto) Eos # (Auto) Baso # (Auto) Absolute Nucleated RBC Nucleated RBC % PT INR Bld Gas Analysis Time 214 Sample Site LEFT RADIAL ABG pH 7.42 ABG pCO2 30 L ABG pO2 100 ABG HCO3 19.0 L ABG Total CO2 19.9 L ABG O2 Saturation 97 ABG Base Excess -4.1 L Kenan Test UNKNOWN VBG pH VBG pCO2 VBG pO2 VBG HCO3 VBG Total CO2 VBG O2 Saturation VBG Base Excess Respiration Rate 18 O2 Delivery Device VENTILATOR Vent Mode SIMV FiO2 30.00 Tidal Volume 400 PEEP 8 Sodium Potassium Chloride Carbon Dioxide Anion Gap BUN Creatinine Estimated GFR (MDRD) Glucose Calcium Total Bilirubin AST ALT Alkaline Phosphatase Total Creatine Kinase Total Protein Albumin Globulin Albumin/Globulin Ratio Lipase TSH HCG, Quant Urine Color YELLOW Urine Clarity CLEAR Urine pH 6.0 Ur Specific [place] <=1.005 Urine Protein NEGATIVE Urine Glucose (UA) NEGATIVE Urine Ketones NEGATIVE Urine Occult Blood TRACE-LYSE Urine Nitrite NEGATIVE Urine Bilirubin NEGATIVE Urine Urobilinogen 0.2 (NORMAL) Ur Leukocyte Esterase NEGATIVE Ur Microscopic Review NOT INDICATED Urine Culture Comments NOT INDICATED Urine HCG, Qual POSITIVE Salicylates Urine Opiates Screen NEGATIVE Ur Oxycodone Screen NEGATIVE Urine Methadone Screen NEGATIVE Ur Propoxyphene Screen NEGATIVE Acetaminophen Ur Barbiturates Screen NEGATIVE Ur Tricyclics Screen POSITIVE H Ur Phencyclidine Scrn NEGATIVE Ur Amphetamine Screen NEGATIVE U Methamphetamines Scrn NEGATIVE U Benzodiazepines Scrn NEGATIVE Urine Cocaine Screen NEGATIVE U Cannabinoids Screen NEGATIVE Ethyl Alcohol - Rads (name of study) 1v chest Radiology: EMP read contemporaneously (Potential cardiomegaly with endotracheal tube 5 cm from the caridad) PD MEDICAL DECISION MAKING - ED course ED course: 24-year-old woman originally billed as a mental health evaluation comes in with altered mental status, GCS of [address], she was intubated immediately upon arrival, blood sugar was in the 90s. This is a 24-year-old woman who was acting crazy at her house and subsequently became obtunded on the way here. Subsequent evaluation showed her to have a significantly elevated alcohol level, normal head CT, and a positive test. This was followed by an ultrasound showing of indeterminate location which would not be unexpected with a low beta hCG. Dr. Melchor was consulted and will see in consultation and spoke with Dr. Coy for admission at 10:20 PM. - Critical Care Time(min): 50 Time Includes: Direct patient care, Review records, Reassess patient, Document care, Coordinate care Data interpretation: Labs, Pulse ox Procedures included in critical care time: Peripheral IV Procedures excluded from critical care time: Intubation, EKG Departure - Departure Disposition: 66 [facility] DC/Xfer Clinical Impression: , location unknown Comatose Qualifiers: Coma depth: Deshaun coma 3-8 Coma timing: in the field (EMT or ambulance) Qualified Code(s): R40.2431 - [place] coma scale score 3-8, in the field [EMT or ambulance] Alcohol intoxication Qualifiers: Complication of substance-induced condition: with delirium Qualified Code(s): F10.921 - Alcohol use, unspecified with intoxication delirium Respiratory failure Qualifiers: Chronicity: acute Respiratory failure complication: hypercapnia Qualified Code(s): J96.02 - Acute respiratory failure with hypercapnia Condition: Critical
[2020-03-30 20:37] LABS: BASOPHILS # (AUTO) 0.1 10^3/uL (0.0-0.1); EOSINOPHILS # (AUTO) 0.2 10^3/uL (0.0-0.7); EOSINOPHILS % (AUTO) 1.5 %; HGB - HEMOGLOBIN 13.8 g/dL (12.0-16.0); LYMPHOCYTES # (AUTO) 3.8 10^3/uL (1.5-3.5); LYMPHOCYTES % (AUTO) 38.5 %; MEAN CORPUSCULAR HEMOGLOBIN 31.4 pg (27.0-31.0); MEAN CORPUSCULAR HGB CONC 33.5 g/dL (32.0-36.0); MEAN CORPUSCULAR VOLUME 93.6 fL (81.0-99.0); MEAN PLATELET VOLUME 9.5 fL (7.9-10.8); MONOCYTES # (AUTO) 0.4 10^3/uL (0.0-1.0); MONOCYTES % (AUTO) 4.2 %; NEUTROPHILS # (AUTO) 5.4 10^3/uL (1.5-6.6); NEUTROPHILS % (AUTO) 54.5 %; PLT - PLATELET COUNT 331 10^3/uL (130-450); RED CELL DISTRIBUTION WIDTH 12.6 % (12.0-15.0); WHITE BLOOD COUNT 9.8 x10^3/uL (4.8-10.8)
[2020-03-30 20:43] LABS: INR 1.1 (0.8-1.2); PT - PROTHROMBIN TIME 12.6 secs (9.9-12.6)
[2020-03-30 20:45] LABS: VBG BASE EXCESS -5.8 mmol/L (-2 - +2); VBG PCO2 43.9 mmHg (41-51); VBG PH 7.29 (7.31-7.41); VBG PO2 43.5 mmHg (25-47)
[2020-03-30 20:48] LABS: MUDS CUTOFF CONCENTRATIONS CUTOFF CONC BELOW:
[2020-03-30 20:52] LABS: BILIRUBIN,URINE NEGATIVE (NEGATIVE); GLUCOSE, URINE (UA) NEGATIVE (NEGATIVE); KETONES,URINE (UA) NEGATIVE (NEGATIVE); LEUKOCYTE ESTERASE, URINE NEGATIVE (NEGATIVE); NITRITE,URINE NEGATIVE (NEGATIVE); OCCULT BLOOD,URINE TRACE-LYSE (NEGATIVE); PROTEIN,URINE NEGATIVE (NEGATIVE); UROBILINOGEN,URINE 0.2 (NORMAL) E.U./dL (NORMAL)
[2020-03-30] MEDS ORDERED: PROPOFOL 500 MG/50 ML 500 MG/50 ML VIAL ONE (20:52)
[2020-03-30 20:53] LABS: ACETAMINOPHEN < 10 ug/mL (10-30); ALBUMIN 4.3 g/dL (3.2-5.5); ALBUMIN/GLOBULIN RATIO 1.4 (1.0-2.2); ALKALINE PHOSPHATASE 63 IU/L (42-121); ALT ALANINE AMINOTRANSFERASE 25 IU/L (10-60); AST ASPARTATE AMINOTRANSFERASE 27 IU/L (10-42); BILIRUBIN,TOTAL 0.6 mg/dL (0.2-1.0); BUN - BLOOD UREA NITROGEN < 5 mg/dL (6-20); CALCIUM 8.5 mg/dL (8.5-10.3); CARBON DIOXIDE - CO2 24 mmol/L (21-32); CHLORIDE 110 mmol/L (101-111); CK- CREATINE KINASE 149 IU/L (22-269); CREATININE 0.6 mg/dL (0.4-1.0); GLUCOSE 82 mg/dL (70-100); LIPASE 30 U/L (22-51); SALICYLATE < 6.0 mg/dL; SODIUM 141 mmol/L (135-145); TOTAL PROTEIN 7.4 g/dL (6.7-8.2)
[2020-03-30 20:55] LABS: CLARITY,URINE CLEAR (CLEAR); HCG UR QUAL POSITIVE
[2020-03-30 21:01] LABS: AMPHETAMINE SCREEN,URINE NEGATIVE (NEGATIVE); BENZODIAZEPINES SCREEN, URINE NEGATIVE (NEGATIVE); COCAINE SCREEN URINE NEGATIVE (NEGATIVE); METHADONE SCREEN, URINE NEGATIVE (NEGATIVE); METHAMPHETAMINES SCREEN, URINE NEGATIVE (NEGATIVE); OPIATE SCREEN, URINE NEGATIVE (NEGATIVE); OXYCODONE SCREEN, URINE NEGATIVE (NEGATIVE); PROPOXYPHENE SCREEN, URINE NEGATIVE (NEGATIVE); TRICYCLIC ANTIDEPRESSANT,URINE POSITIVE (NEGATIVE)
[2020-03-30] MEDS ORDERED: PROPOFOL 200 MG/20 ML VIAL IVP STA ×2 (21:05→21:26)
[2020-03-30] MEDS ORDERED: MIDAZOLAM 2 MG/2 ML VIAL IVP STA (21:08)
[2020-03-30] MEDS ORDERED: MIDAZOLAM 2 MG/2 ML VIAL ONE (21:11)
--- NOTE | 2020-03-30 21:11 | XRAY Report ---
Reason: resp failure Procedure Date: 03/30/2020 Accession Number: [id number] / [id number] Procedure: XR - Chest 1 View X-Ray CPT Code: 29007 Final Report FULL RESULT: EXAM: CHEST RADIOGRAPHY EXAM DATE: 03/30/2020 08:32 PM. CLINICAL HISTORY: Respiratory failure. COMPARISON: CHEST 1 VIEW 02/19/2020 12:56 AM. TECHNIQUE: 1 view. FINDINGS: Lines/Tubes: Gastric tube to the body of the stomach. ET tube 5 cm from the caridad. Lungs/Pleura: No focal opacities evident. No pleural effusion. No pneumothorax. Mediastinum: Large heart. Other: None. IMPRESSION: 1. ET tube 5 cm from the caridad. 2. Cardiomegaly without CHF. RADIA
[2020-03-30] MEDS ORDERED: SODIUM CHLORIDE 0.9% 1,000 ML IV STA (21:23)
[2020-03-30] MEDS ORDERED: fentaNYL 100 MCG/2 ML VIAL IVP STA ×2 (21:26→22:21)
[2020-03-30] MEDS ORDERED: fentaNYL 100 MCG/2 ML VIAL ONE (21:30)
[2020-03-30 21:43] LABS: ABG BASE EXCESS -4.1 mmol/L (-2.0-3.0); ABG PCO2 30 mmHg (34-45); ABG PH 7.42 (7.35-7.45); ABG PO2 100 mmHg (80-100); ABG TCO2 19.9 MMOL/L (21.0-29.0)
[2020-03-30 21:44] LABS: ABG OXYGEN SATURATION 97 % (94-98)
[2020-03-30] MEDS ORDERED: FOLIC ACID INJ 1 MG in SODIUM CHLORIDE 0.9% 1,000 ML IV STA (21:50)
[2020-03-30] MEDS ORDERED: THIAMINE INJ 100 MG in SODIUM CHLORIDE 0.9% 50 ML IV STA (21:50)
[2020-03-30] MEDS ORDERED: FOLIC ACID 5 MG/1 ML 10ML MDV ONE (21:58)
--- NOTE | 2020-03-30 22:04 | CT Report ---
Reason: altered Procedure Date: 03/30/2020 Accession Number: [id number] / [id number] Procedure: CT - HEAD WO CPT Code: Final Report FULL RESULT: EXAM: CT HEAD EXAM DATE: 03/30/2020 09:29 PM. CLINICAL HISTORY: Decreased mental status, unresponsive COMPARISON: None. TECHNIQUE: Multiaxial CT images were obtained from the foramen magnum to the vertex. Reformats: Sagittal and coronal. IV contrast: None. In accordance with CT protocol optimization, one or more of the following dose reduction techniques were utilized for this exam: automated exposure control, adjustment of mA and/or KV based on patient size, or use of iterative reconstructive technique. FINDINGS: Parenchyma: No intraparenchymal hemorrhage. No evidence of mass, midline shift, or CT findings of infarction. Hernandez-white differentiation is distinct. Extraaxial Spaces: Normal for age. No subdural or epidural collections identified. Ventricles: Normal in size and position. Sinuses and Orbits: Imaged paranasal sinuses, orbits, and mastoids show no significant abnormality. Bones: No evidence of fracture or calvarial defect. Other: None. IMPRESSION: Normal head CT. RADIA
[2020-03-30] MEDS ORDERED: SODIUM CHLORIDE FLUSH 0.9% 10 ML SYRINGE IVP PRN (22:38)
--- NOTE | 2020-03-30 22:43 | Ultrasound Report ---
Reason: of unknown location Procedure Date: 03/30/2020 Accession Number: [id number] / [id number] Procedure: US - OB First Trimester CPT Code: Final Report FULL RESULT: EXAM: FIRST TRIMESTER OBSTETRIC ULTRASOUND (Less than 11 weeks) EXAM DATE: 03/30/2020 10:07 PM. CLINICAL HISTORY: of unknown location. Patient unresponsive, on ventilator. LMP: Unknown. COMPARISONS: None. TECHNIQUE: Transabdominal ultrasound examination with static image documentation. ASSESSMENT: Gestational Sac: None visualized. Embryo: None visualized. Cardiac activity: None visualized. MATERNAL STRUCTURES: Uterus: Anteverted. Unremarkable. Cervix: Unable to adequately evaluate. Right Ovary/Adnexa: The ovary measures 4.1 x 2.4 x 2.9 cm, volume 14.9 cc. Unremarkable. Left Ovary/Adnexa: The ovary measures 4.0 x 2.1 x 2.0 cm, volume 8.7 cc. Unremarkable. Free Fluid: Small amount. Other: None. IMPRESSION: Unremarkable transabdominal pelvic ultrasound. RADIA
--- NOTE | 2020-03-30 22:55 | HISTORY & PHYSICAL EXAMINATION ---
Chief Complaint - Chief Complaint Chief Complaint: Altered mental status Respiratory Admission HPI - Admitted From Admitted from: ED - History Obtained From Records Reviewed: RN notes reviewed History obtained from: Other (ED physician) Exam limitations: Intoxication, Other (Chemically sedated and intubated) - History of Present Illness Location Problem/Description: Patient was brought in by paramedics due to neighbors reporting the patient Severity at the worst: reports: Severe HPI Comment/Other: The emergency room work-up was relatively unremarkable including a CT scan of the head that was normal, as well as relatively unremarkable labs with the exception of mild respiratory acidosis secondary to hypercapnia. However, her test was positive with a mildly elevated beta hCG level. [employer] PROGRAMMER was consulted regarding this, and a first trimester OB ultrasound was ordered showing no presence of a intrauterine , consistent with the early and low level of beta hCG. Patient was administered the appropriate sedatives for intubation, and at the time of admission patient was already intubated and unable to provide history. PMH/PSH - Past Medical History Cardiovascular: positive: None Respiratory: positive: None Endocrine/Autoimmune: positive: None GI: positive: None : positive: Chronic bladder infection Psych: positive: Depression, Anxiety, Other Musculoskeletal: positive: Fibromyalgia, Rheumatoid arthritis, Other MRSA Hx?: No Other Past Medical History: Adjusment Disorder - Past Surgical History General: positive: Cholecystectomy Social & Family Hx - Social History Does the pt smoke?: No Smoking Status: Never smoker Does the pt drink ETOH?: No Does the pt have substance abuse?: No - POLST Patient has POLST: No POLST Status: Full Code (Patient is intubated at the time of admission, so would have to presume full code) Meds/Allgy - Home Medications Home Medications: Ambulatory Orders Medication Instructions Recorded Confirmed Adalimumab [Humira Pen] 40 mg SUBQ ONCE 08/18/19 12/20/19 Amitriptyline [Elavil] 25 mg PO QPM 08/18/19 12/20/19 Calcium Carbonate/Vitamin D3 1 tab PO DAILY 08/18/19 12/20/19 [Calcium 600-Vit D3 400 Tablet] Ergocalciferol [Vitamin D2] 50,000 unit PO ONCE 08/18/19 12/20/19 Hydroxychloroquine [Plaquenil] 200 mg PO BID 08/18/19 12/20/19 Pantoprazole Sodium [Protonix] 20 mg PO DAILY 10/05/19 02/06/20 predniSONE [Prednisone] 40 mg PO DAILY #10 tablet 08/19/19 12/20/19 Cyclobenzaprine [Flexeril] 10 mg PO TID PRN #20 tablet 12/20/19 Duloxetine HCl 30 mg PO BID 12/20/19 12/20/19 clonazePAM [Clonazepam] 0.5 mg PO QPM 12/20/19 12/20/19 oxyCODONE/ACET 5/325 [Percocet 5 1 - 2 each PO Q6H PRN #14 tablet 12/20/19 mg/325 mg] - Allergies Allergies/Adverse Reactions: Allergies Allergy/AdvReac Type Severity Reaction Status Date / Time No Known Drug Allergies Allergy Verified 03/30/20 21:18 Review of Systems - All Other Systems All Other Systems: reports: Other (Patient unable to provide review of systems due to chemically sedated and intubated) Exam - Vital Signs Reviewed Vital Signs: Yes Vital Signs: Vital Signs x48h Temp Pulse Resp BP Pulse Ox 03/30/20 22:46 82 03/30/20 22:33 36.1 C L 74 16 111/71 100 03/30/20 22:07 71 16 97/73 100 03/30/20 21:49 74 18 92/53 L 100 03/30/20 21:37 35.9 C L 76 18 98/56 L 100 03/30/20 21:29 78 18 112/74 100 03/30/20 21:20 79 118/79 03/30/20 21:10 80 129/77 03/30/20 21:05 87 20 129/92 H 100 03/30/20 21:00 90 22 134/95 H 100 03/30/20 20:45 93 18 133/95 H 100 03/30/20 20:40 98 20 134/95 H 100 03/30/20 20:28 115 H 24 127/80 100 03/30/20 20:25 36.8 C 96 31 H 127/80 100 03/30/20 20:20 34.9 C L 96 31 H 127/80 100 - Physical Exam General Appearance: positive: Other (Intubated) Eyes Bilateral: positive: Other (Mildly dilated pupils, symmetric) ENT: positive: ENT inspection nml Neck: positive: Nml inspection Respiratory: positive: Rhonchi. negative: No respiratory distress, Wheezes, Rales Cardiovascular: positive: Regular rate & rhythm, No murmur, No gallop Peripheral Pulses: positive: 2+ Abdomen: positive: Non-tender, No organomegaly, Nml bowel sounds, No distention Skin: positive: Other (Patient has a mild abrasion on the bridge of the nose, 2 healing abrasions on the dorsum of the right hand, with a few road rash appearing abrasions on the right forearm, and a separate abrasion on the dorsum of the left hand.) Extremities: positive: No pedal edema Neurologic/Psychiatric: positive: Other (Chemically sedated and intubated, unable to cooperate with neurological exam) Results - Lab Results Lab results reviewed: Yes Fish Bones: 03/30/20 20:30 03/30/20 20:30 Other Lab Results: Lab Results x24hrs 03/30/20 03/30/20 03/30/20 Range/Units 21:30 20:45 20:35 WBC (4.8-10.8) x10^3/uL RBC (4.20-5.40) 10^6/uL Hgb (12.0-16.0) g/dL Hct (37.0-47.0) % MCV (81.0-99.0) fL MCH (27.0-31.0) pg MCHC (32.0-36.0) g/dL RDW (12.0-15.0) % Plt Count (130-450) 10^3/uL MPV (7.9-10.8) fL Neut # (Auto) (1.5-6.6) 10^3/uL Lymph # (Auto) (1.5-3.5) 10^3/uL [place] # (Auto) (0.0-1.0) 10^3/uL Eos # (Auto) (0.0-0.7) 10^3/uL Baso # (Auto) (0.0-0.1) 10^3/uL Absolute Nucleated RBC x10^3/uL Nucleated RBC % /100WBC PT (9.9-12.6) secs INR (0.8-1.2) Bld Gas Analysis Time 2142 Sample Site LEFT RADIAL ABG pH 7.42 (7.35-7.45) ABG pCO2 30 L (34-45) mmHg ABG pO2 100 (80-100) mmHg ABG HCO3 19.0 L (22.0-26.0) mmol/L ABG Total CO2 19.9 L (21.0-29.0) MMOL/L ABG O2 Saturation 97 (94-98) % ABG Base Excess -4.1 L (-2.0-3.0) mmol/L Kenan Test UNKNOWN VBG pH (7.31-7.41) VBG pCO2 (41-51) mmHg VBG pO2 (25-47) mmHg VBG HCO3 (23-28) mmol/L VBG Total CO2 (24-29) mmol/L VBG O2 Saturation (60-80) % VBG Base Excess (-2 - +2) mmol/L Respiration Rate 18 b/min O2 Delivery Device VENTILATOR Vent Mode SIMV FiO2 30.00 Tidal Volume 400 mL PEEP 8 cmH2O Sodium (135-145) mmol/L Potassium (3.5-5.0) mmol/L Chloride (101-111) mmol/L Carbon Dioxide (21-32) mmol/L Anion Gap (6-13) BUN (6-20) mg/dL Creatinine (0.4-1.0) mg/dL Estimated GFR (MDRD) (>89) Glucose (70-100) mg/dL Calcium (8.5-10.3) mg/dL Total Bilirubin (0.2-1.0) mg/dL AST (10-42) IU/L ALT (10-60) IU/L Alkaline Phosphatase (42-121) IU/L Total Creatine Kinase (22-269) IU/L Total Protein (6.7-8.2) g/dL Albumin (3.2-5.5) g/dL Globulin (2.1-4.2) g/dL Albumin/Globulin Ratio (1.0-2.2) Lipase (22-51) U/L TSH (0.34-5.60) uIU/mL HCG, Quant mIU/mL Urine Color YELLOW Urine Clarity CLEAR (CLEAR) Urine pH 6.0 (5.0-7.5) PH Ur Specific [place] <=1.005 (1.002-1.030) Urine Protein NEGATIVE (NEGATIVE) mg/dL Urine Glucose (UA) NEGATIVE (NEGATIVE) mg/dL Urine Ketones NEGATIVE (NEGATIVE) mg/dL Urine Occult Blood TRACE-LYSE (NEGATIVE) Urine Nitrite NEGATIVE (NEGATIVE) Urine Bilirubin NEGATIVE (NEGATIVE) Urine Urobilinogen 0.2 (NORMAL) (NORMAL) E.U./dL Ur Leukocyte Esterase NEGATIVE (NEGATIVE) Ur Microscopic Review NOT INDICATED Urine Culture Comments NOT INDICATED Urine HCG, Qual POSITIVE Salicylates mg/dL Urine Opiates Screen NEGATIVE (NEGATIVE) Ur Oxycodone Screen NEGATIVE (NEGATIVE) Urine Methadone Screen NEGATIVE (NEGATIVE) Ur Propoxyphene Screen NEGATIVE (NEGATIVE) Acetaminophen (10-30) ug/mL Ur Barbiturates Screen NEGATIVE (NEGATIVE) Ur Tricyclics Screen POSITIVE H (NEGATIVE) Ur Phencyclidine Scrn NEGATIVE (NEGATIVE) Ur Amphetamine Screen NEGATIVE (NEGATIVE) U Methamphetamines Scrn NEGATIVE (NEGATIVE) U Benzodiazepines Scrn NEGATIVE (NEGATIVE) Urine Cocaine Screen NEGATIVE (NEGATIVE) U Cannabinoids Screen NEGATIVE (NEGATIVE) Ethyl Alcohol mg/dL 03/30/20 03/30/20 03/30/20 Range/Units 20:30 20:30 20:30 WBC (4.8-10.8) x10^3/uL RBC (4.20-5.40) 10^6/uL Hgb (12.0-16.0) g/dL Hct (37.0-47.0) % MCV (81.0-99.0) fL MCH (27.0-31.0) pg MCHC (32.0-36.0) g/dL RDW (12.0-15.0) % Plt Count (130-450) 10^3/uL MPV (7.9-10.8) fL Neut # (Auto) (1.5-6.6) 10^3/uL Lymph # (Auto) (1.5-3.5) 10^3/uL Benton # (Auto) (0.0-1.0) 10^3/uL Eos # (Auto) (0.0-0.7) 10^3/uL Baso # (Auto) (0.0-0.1) 10^3/uL Absolute Nucleated RBC x10^3/uL Nucleated RBC % /100WBC PT (9.9-12.6) secs INR (0.8-1.2) Bld Gas Analysis Time Sample Site ABG pH (7.35-7.45) ABG pCO2 (34-45) mmHg ABG pO2 (80-100) mmHg ABG HCO3 (22.0-26.0) mmol/L ABG Total CO2 (21.0-29.0) MMOL/L ABG O2 Saturation (94-98) % ABG Base Excess (-2.0-3.0) mmol/L Kenan Test VBG pH 7.290 L (7.31-7.41) VBG pCO2 43.9 (41-51) mmHg VBG pO2 43.5 (25-47) mmHg VBG HCO3 20.6 L (23-28) mmol/L VBG Total CO2 22.0 L (24-29) mmol/L VBG O2 Saturation 78.3 (60-80) % VBG Base Excess -5.8 L (-2 - +2) mmol/L Respiration Rate b/min O2 Delivery Device Vent Mode FiO2 Tidal Volume mL PEEP cmH2O Sodium (135-145) mmol/L Potassium (3.5-5.0) mmol/L Chloride (101-111) mmol/L Carbon Dioxide (21-32) mmol/L Anion Gap (6-13) BUN (6-20) mg/dL Creatinine (0.4-1.0) mg/dL Estimated GFR (MDRD) (>89) Glucose (70-100) mg/dL Calcium (8.5-10.3) mg/dL Total Bilirubin (0.2-1.0) mg/dL AST (10-42) IU/L ALT (10-60) IU/L Alkaline Phosphatase (42-121) IU/L Total Creatine Kinase (22-269) IU/L Total Protein (6.7-8.2) g/dL Albumin (3.2-5.5) g/dL Globulin (2.1-4.2) g/dL Albumin/Globulin Ratio (1.0-2.2) Lipase (22-51) U/L TSH 0.39 (0.34-5.60) uIU/mL HCG, Quant 218.43 mIU/mL Urine Color Urine Clarity (CLEAR) Urine pH (5.0-7.5) PH Ur Specific [place] (1.002-1.030) Urine Protein (NEGATIVE) mg/dL Urine Glucose (UA) (NEGATIVE) mg/dL Urine Ketones (NEGATIVE) mg/dL Urine Occult Blood (NEGATIVE) Urine Nitrite (NEGATIVE) Urine Bilirubin (NEGATIVE) Urine Urobilinogen (NORMAL) E.U./dL Ur Leukocyte Esterase (NEGATIVE) Ur Microscopic Review Urine Culture Comments Urine HCG, Qual Salicylates mg/dL Urine Opiates Screen (NEGATIVE) Ur Oxycodone Screen (NEGATIVE) Urine Methadone Screen (NEGATIVE) Ur Propoxyphene Screen (NEGATIVE) Acetaminophen (10-30) ug/mL Ur Barbiturates Screen (NEGATIVE) Ur Tricyclics Screen (NEGATIVE) Ur Phencyclidine Scrn (NEGATIVE) Ur Amphetamine Screen (NEGATIVE) U Methamphetamines Scrn (NEGATIVE) U Benzodiazepines Scrn (NEGATIVE) Urine Cocaine Screen (NEGATIVE) U Cannabinoids Screen (NEGATIVE) Ethyl Alcohol mg/dL 03/30/20 03/30/20 03/30/20 Range/Units 20:30 20:30 20:30 WBC 9.8 (4.8-10.8) x10^3/uL RBC 4.40 (4.20-5.40) 10^6/uL Hgb 13.8 (12.0-16.0) g/dL Hct 41.2 (37.0-47.0) % MCV 93.6 (81.0-99.0) fL MCH 31.4 H (27.0-31.0) pg MCHC 33.5 (32.0-36.0) g/dL RDW 12.6 (12.0-15.0) % Plt Count 331 (130-450) 10^3/uL MPV 9.5 (7.9-10.8) fL Neut # (Auto) 5.4 (1.5-6.6) 10^3/uL Lymph # (Auto) 3.8 H (1.5-3.5) 10^3/uL [place]enton # (Auto) 0.4 (0.0-1.0) 10^3/uL Eos # (Auto) 0.2 (0.0-0.7) 10^3/uL Baso # (Auto) 0.1 (0.0-0.1) 10^3/uL Absolute Nucleated RBC 0.00 x10^3/uL Nucleated RBC % 0.0 /100WBC PT 12.6 (9.9-12.6) secs INR 1.1 (0.8-1.2) Bld Gas Analysis Time Sample Site ABG pH (7.35-7.45) ABG pCO2 (34-45) mmHg ABG pO2 (80-100) mmHg ABG HCO3 (22.0-26.0) mmol/L ABG Total CO2 (21.0-29.0) MMOL/L ABG O2 Saturation (94-98) % ABG Base Excess (-2.0-3.0) mmol/L Kenan Test VBG pH (7.31-7.41) VBG pCO2 (41-51) mmHg VBG pO2 (25-47) mmHg VBG HCO3 (23-28) mmol/L VBG Total CO2 (24-29) mmol/L VBG O2 Saturation (60-80) % VBG Base Excess (-2 - +2) mmol/L Respiration Rate b/min O2 Delivery Device Vent Mode FiO2 Tidal Volume mL PEEP cmH2O Sodium 141 (135-145) mmol/L Potassium 3.7 (3.5-5.0) mmol/L Chloride 110 (101-111) mmol/L Carbon Dioxide 24 (21-32) mmol/L Anion Gap 7.0 (6-13) BUN < 5 L (6-20) mg/dL Creatinine 0.6 (0.4-1.0) mg/dL Estimated GFR (MDRD) 123 (>89) Glucose 82 (70-100) mg/dL Calcium 8.5 (8.5-10.3) mg/dL Total Bilirubin 0.6 (0.2-1.0) mg/dL AST 27 (10-42) IU/L ALT 25 (10-60) IU/L Alkaline Phosphatase 63 (42-121) IU/L Total Creatine Kinase 149 (22-269) IU/L Total Protein 7.4 (6.7-8.2) g/dL Albumin 4.3 (3.2-5.5) g/dL Globulin 3.1 (2.1-4.2) g/dL Albumin/Globulin Ratio 1.4 (1.0-2.2) Lipase 30 (22-51) U/L TSH (0.34-5.60) uIU/mL HCG, Quant mIU/mL Urine Color Urine Clarity (CLEAR) Urine pH (5.0-7.5) PH Ur Specific [place] (1.002-1.030) Urine Protein (NEGATIVE) mg/dL Urine Glucose (UA) (NEGATIVE) mg/dL Urine Ketones (NEGATIVE) mg/dL Urine Occult Blood (NEGATIVE) Urine Nitrite (NEGATIVE) Urine Bilirubin (NEGATIVE) Urine Urobilinogen (NORMAL) E.U./dL Ur Leukocyte Esterase (NEGATIVE) Ur Microscopic Review Urine Culture Comments Urine HCG, Qual Salicylates < 6.0 mg/dL Urine Opiates Screen (NEGATIVE) Ur Oxycodone Screen (NEGATIVE) Urine Methadone Screen (NEGATIVE) Ur Propoxyphene Screen (NEGATIVE) Acetaminophen < 10 L (10-30) ug/mL Ur Barbiturates Screen (NEGATIVE) Ur Tricyclics Screen (NEGATIVE) Ur Phencyclidine Scrn (NEGATIVE) Ur Amphetamine Screen (NEGATIVE) U Methamphetamines Scrn (NEGATIVE) U Benzodiazepines Scrn (NEGATIVE) Urine Cocaine Screen (NEGATIVE) U Cannabinoids Screen (NEGATIVE) Ethyl Alcohol 294.4 mg/dL - Diagnostic Imaging Results Diagnostic Imaging Results: positive: Final report reviewed - EKG Results EKG Interpreted Independently: Yes Sepsis Event Note (H) - Evaluation Current Stage of Sepsis: Ruled out Impression/Plan - Problem List Problem List: 1. Acute respiratory failure requiring intubation Underlying etiology is likely related to alcohol intoxication, further exacerbated by the presence of tricyclics as per her urine toxicology. At this point patient is unable to provide history, so once patient awakens will be able to ask more questions regarding any other possible substances or contributing factors. At this point, given no fever, normal white blood cell count, and clear chest x-ray, no suspicion for an infectious etiology. Continue mechanical ventilation, likely through the night with possible early extubation in the morning with anesthesia in house. On the other hand, if the patient demonstrates considerable signs of awakening overnight, we could consider extubation with caution as she apparently had minimal gag reflex in the emergency department when she was intubated. 2. Alcohol intoxication Likely the precipitating factor for her erratic behavior followed by her respiratory failure, with decreased respiratory drive. This is likely further exacerbated by the tricyclics in her system.Continue banana bag daily, folic acid when able to tolerate p.o. Once patient awakens, would appreciate a social work consult for substance abuse counseling. 3. Positive screening test Patient has elevated beta hCG consistent with a very early , unable to verify a intrauterine on ultrasound given the early staging. Appreciate [employer] PRO[employer]MER advice, and will discuss with [employer] PROGRAMMER in the morning for any relevant management however for now avoid any medications contraindicated in and minimize investigative studies requiring radiation unless absolutely necessary. And as above, appreciate social work consult for assistance with counseling and care. 4. Rheumatoid arthritis and Sjogren's syndrome Once patient is awake and alert and able to tolerate oral medications, will resume home medications. 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
[2020-03-31] MEDS: SODIUM CHLORIDE FLUSH 0.9% 10 ML SYRINGE IVP SCH ×3 (01:27→18:46)
[2020-03-31] MEDS: PROPOFOL 500 MG/50 ML 500 MG/50 ML VIAL IV SCH ×4 (01:27→08:27)
[2020-03-31] MEDS: SODIUM CHLORIDE 0.9% 1,000 ML IV SCH ×2 (01:35→16:25)
--- NOTE | 2020-03-31 04:13 | CONSULTATION NOTE ---
Referring Provider Consult Date: 03/31/20 History of Present Illness - Admitted From Admitted From:: ED - History Obtained From Records Reviewed: yes History obtained from: ED MD Exam Limitations: Pt unconscious, intubated - History of Present Illness HPI Comment/Other: 24yo unknown /parity, and LMP brought in by EMS obtunded and requiring immediate intubation. She was found to have a very early , hquant 218, and no was seen on transabdominal scan. Was asked to consult secondary to of unknown location. VSS afebrile Labs reviewed, unremarkable except high alcohol level and +tox screen for tricyclics Pt seen but not examined. A/P 24yo with very early . Expect to be able to identify gestational sac by transvaginal scan when quant reaches about 1800 +/-200 which should be in 5-7 days if this is a normal . Recommend repeat quant HCG and transvaginal scan at that time. History - Past Medical History Cardiovascular: reports: None Respiratory: reports: None Endocrine/Autoimmune: reports: None GI: reports: None : reports: Chronic bladder infection Psych: reports: Depression, Anxiety, Other Musculoskeletal: reports: Fibromyalgia, Rheumatoid arthritis, Other MRSA Hx?: No Other Past Medical History: Adjusment Disorder - Past Surgical History General: reports: Cholecystectomy - POLST Patient has POLST: No POLST Status: Full Code (Patient is intubated at the time of admission, so would have to presume full code) Meds/Allgy - Home Medications Home Medications: Ambulatory Orders Medication Instructions Recorded Confirmed Adalimumab [Humira Pen] 40 mg SUBQ ONCE 08/18/19 12/20/19 Amitriptyline [Elavil] 25 mg PO QPM 08/18/19 12/20/19 Calcium Carbonate/Vitamin D3 1 tab PO DAILY 08/18/19 12/20/19 [Calcium 600-Vit D3 400 Tablet] Ergocalciferol [Vitamin D2] 50,000 unit PO ONCE 08/18/19 12/20/19 Hydroxychloroquine [Plaquenil] 200 mg PO BID 08/18/19 12/20/19 Pantoprazole Sodium [Protonix] 20 mg PO DAILY 08/18/19 12/20/19 predniSONE [Prednisone] 40 mg PO DAILY #10 tablet 08/19/19 12/20/19 Cyclobenzaprine [Flexeril] 10 mg PO TID PRN #20 tablet 12/20/19 Duloxetine HCl 30 mg PO BID 12/20/19 12/20/19 clonazePAM [Clonazepam] 0.5 mg PO QPM 12/20/19 12/20/19 oxyCODONE/ACET 5/325 [Percocet 5 1 - 2 each PO Q6H PRN #14 tablet 12/20/19 mg/325 mg] - Allergies Allergies/Adverse Reactions: Allergies Allergy/AdvReac Type Severity Reaction Status Date / Time No Known Drug Allergies Allergy Verified 03/30/20 21:18 Review of Systems - All Other Systems All Other Systems: reports: Other (Not obtainable) Exam - Vital Signs Vital Signs: Vital Signs x48h Temp Pulse Pulse Resp BP BP Pulse Ox 03/31/20 03:00 76 16 97/60 100 03/31/20 02:00 76 71 16 101/62 100 03/31/20 01:01 72 16 95/60 03/31/20 01:00 72 73 16 95/60 100 03/31/20 00:55 72 16 03/31/20 00:50 79 14 03/31/20 00:45 72 81 16 104/66 100 03/31/20 00:41 73 16 104/62 03/31/20 00:40 71 16 03/31/20 00:36 83 17 110/61 03/31/20 00:35 85 22 03/31/20 00:31 74 16 98/66 03/31/20 00:30 74 16 03/31/20 00:26 83 17 106/53 L 03/31/20 00:25 75 15 03/31/20 00:21 75 16 91/52 L 03/31/20 00:20 75 16 03/31/20 00:16 77 16 82/50 L 03/31/20 00:15 77 16 03/31/20 00:11 75 16 88/55 L 03/31/20 00:10 76 16 03/31/20 00:06 76 16 103/65 03/31/20 00:05 73 16 03/31/20 00:02 91 14 102/65 03/31/20 00:01 114/58 L 03/31/20 00:00 83 82 15 114/58 L 100 03/30/20 23:56 80 16 106/73 03/30/20 23:55 82 17 03/30/20 23:51 80 16 99/67 03/30/20 23:50 88 13 03/30/20 23:46 80 16 104/66 03/30/20 23:45 78 16 03/30/20 23:43 79 16 99/60 03/30/20 23:42 81 16 03/30/20 23:40 79 16 03/30/20 23:35 83 12 03/30/20 23:32 80 23 03/30/20 23:31 76 16 104/71 03/30/20 23:30 97.3 F L 78 104/71 03/30/20 23:29 106/68 03/30/20 23:08 97.7 F 69 16 96/58 L 100 03/30/20 22:46 82 03/30/20 22:33 97.0 F L 74 16 111/71 100 03/30/20 22:07 71 16 97/73 100 03/30/20 21:49 74 18 92/53 L 100 03/30/20 21:37 96.6 F L 76 18 98/56 L 100 03/30/20 21:29 78 18 112/74 100 03/30/20 21:20 79 118/79 03/30/20 21:10 80 129/77 03/30/20 21:05 87 20 129/92 H 100 03/30/20 21:00 90 22 134/95 H 100 03/30/20 20:45 93 18 133/95 H 100 03/30/20 20:40 98 20 134/95 H 100 03/30/20 20:28 115 H 24 127/80 100 03/30/20 20:25 98.2 F 96 31 H 127/80 100 03/30/20 20:20 94.8 F L 96 31 H 127/80 100 - Physical Exam Comments/Other: EKG TECH exam deferred Conclusion/Plan - Lab Results Lab results reviewed: Yes Fish Bones: 03/30/20 20:30 03/30/20 20:30
[2020-03-31] MEDS ORDERED: MORPHINE 10 MG/ML VIAL IVP PRN (04:16)
[2020-03-31 05:27] LABS: BASOPHILS # (AUTO) 0.1 10^3/uL (0.0-0.1); BASOPHILS % (AUTO) 0.8 %; EOSINOPHILS # (AUTO) 0.2 10^3/uL (0.0-0.7); EOSINOPHILS % (AUTO) 1.9 %; HGB - HEMOGLOBIN 12.6 g/dL (12.0-16.0); LYMPHOCYTES # (AUTO) 4.8 10^3/uL (1.5-3.5); LYMPHOCYTES % (AUTO) 39.9 %; MEAN CORPUSCULAR HEMOGLOBIN 30.7 pg (27.0-31.0); MEAN CORPUSCULAR HGB CONC 32.7 g/dL (32.0-36.0); MEAN CORPUSCULAR VOLUME 93.7 fL (81.0-99.0); MEAN PLATELET VOLUME 9.9 fL (7.9-10.8); MONOCYTES # (AUTO) 0.8 10^3/uL (0.0-1.0); MONOCYTES % (AUTO) 6.9 %; NEUTROPHILS % (AUTO) 50.2 %; PLT - PLATELET COUNT 305 10^3/uL (130-450); RED BLOOD COUNT 4.11 10^6/uL (4.20-5.40); WHITE BLOOD COUNT 11.9 x10^3/uL (4.8-10.8)
[2020-03-31 05:33] LABS: CALCIUM 7.7 mg/dL (8.5-10.3); CREATININE 0.4 mg/dL (0.4-1.0)
--- NOTE | 2020-03-31 07:33 | PROVIDER PROGRESS NOTE ---
Subjective - Prog Note Date Prog Note Date: 03/31/20 - Subjective Subjective: She is intubated this morning but is awake when sedation is turned off and is following commands. She has minimal vent requirements. Current Medications - Current Medications Current Medications: Active Medications Famotidine (Pepcid) 20 mg IVP BID [facility] Multivitamins 10 ml/ Thiamine HCl 100 mg/ Folic Acid 1 mg/Sodium Chloride 1,011.2 mls @ 100 mls/hr IV DAILY [facility] Propofol (Diprivan) 500 mg in 50 mls @ 4.218 mls/hr IV .[id number] [facility]; Protocol Last Titration: 03/31/20 08:41 Dose: 0 mcg/kg/min, 0 mls/hr Sodium Chloride (Normal Saline 0.9%) 1,000 mls @ 100 mls/hr IV .Q10H SALAZAR Last Infusion: 03/31/20 07:05 Dose: 100 mls/hr Potassium Chloride 40 meq/ (Sodium Chloride) 520 mls @ 125 mls/hr IV ONCE ONE Stop: 03/31/20 13:09 Morphine Sulfate (Morphine 10mg Vial) 2 mg IVP Q2HR PRN PRN Reason: PAIN Last Admin: 03/31/20 04:27 Dose: 2 mg Sodium Chloride (Normal Saline Flush 0.9%) 10 ml IVP 0100,0900,1700 [facility] Last Admin: 03/31/20 01:27 Dose: 10 ml Sodium Chloride (Normal Saline Flush 0.9%) 10 ml IVP PRN PRN PRN Reason: NEEDED PER PROVIDER ORDERS Adalimumab [Humira Pen] 40 mg SUBQ Q7D 08/18/19 Calcium Carbonate/Vitamin D3 [Calcium 600-Vit D3 400 Tablet] 1 tab PO DAILY 08/18/19 Ergocalciferol [Vitamin D2] 50,000 unit PO Q7D 08/18/19 Hydroxychloroquine [Plaquenil] 200 mg PO BID 08/18/19 Duloxetine HCl 30 mg PO DAILY 12/20/19 clonazePAM [Clonazepam] 0.5 mg PO QPM 12/20/19 Amitriptyline HCl 50 mg PO QPM 03/31/20 Duloxetine HCl 60 mg PO QPM 03/31/20 Meloxicam 15 mg PO DAILY 03/31/20 Propranolol HCl 40 mg PO BID 03/31/20 predniSONE [Prednisone] 7.5 mg PO DAILY 03/31/20 Objective - Vital Signs/Intake & Output Reviewed Vital Signs: Yes Vital Signs: Vital Signs Temp Pulse Pulse Resp BP BP BP 03/31/20 07:00 79 16 101/59 L 03/31/20 06:14 80 03/31/20 06:00 77 16 96/67 03/31/20 05:00 83 81 16 95/56 L 03/31/20 04:55 81 16 03/31/20 04:50 81 16 03/31/20 04:45 81 16 03/31/20 04:40 80 16 03/31/20 04:35 80 16 03/31/20 04:31 88 14 101/56 L 03/31/20 04:30 85 16 03/31/20 04:25 75 16 03/31/20 04:20 74 16 03/31/20 04:15 78 16 03/31/20 04:10 80 16 03/31/20 04:05 82 15 03/31/20 04:03 72 03/31/20 04:01 74 16 106/68 03/31/20 04:00 36.7 C 75 78 16 106/68 03/31/20 03:55 76 16 03/31/20 03:50 77 16 03/31/20 03:45 78 16 03/31/20 03:40 82 16 03/31/20 03:35 78 14 Pulse Ox 03/31/20 07:00 98 03/31/20 06:14 03/31/20 06:00 99 03/31/20 05:00 100 03/31/20 04:55 03/31/20 04:50 03/31/20 04:45 03/31/20 04:40 03/31/20 04:35 03/31/20 04:31 03/31/20 04:30 03/31/20 04:25 03/31/20 04:20 03/31/20 04:15 03/31/20 04:10 03/31/20 04:05 03/31/20 04:03 03/31/20 04:01 03/31/20 04:00 100 03/31/20 03:55 03/31/20 03:50 03/31/20 03:45 03/31/20 03:40 03/31/20 03:35 Intake & Output: Intake & Output 03/28/20 03/29/20 03/30/20 03/31/20 23:59 23:59 23:59 23:59 Intake Total 090.130 2580.523 Output Total 1500 455 Balance -736.720 879.523 - Objective General Appearance: positive: Alert Eyes Bilateral: positive: Normal inspection, Conjunctivae nml ENT: positive: Other (ET tube in place.) Neck: positive: Nml inspection Respiratory: negative: No respiratory distress, Wheezes, Rales, Rhonchi Cardiovascular: positive: No murmur, Tachycardia. negative: Systolic murmur, Diastolic murmur Abdomen: positive: Non-tender, No distention. negative: Tenderness Skin: positive: Warm, Dry, Other (Healed wounds over her bilateral hands from prior picking.) Extremities: positive: No pedal edema, Other (He has pain with active and passive dorsiflexion of the right ankle. It is tender over the anterior aspect of the ankle and the lateral malleolus. No erythema or warmth) Neurologic/Psychiatric: positive: Other (She is following commands off of sedation. No focal motor deficits.) - Lab Results Fish Bones: 03/31/20 04:47 03/31/20 04:47 Other Labs: Lab Results x24hrs 03/31/20 03/31/20 03/30/20 Range/Units 04:47 04:47 21:30 WBC 11.9 H (4.8-10.8) x10^3/uL RBC 4.11 L (4.20-5.40) 10^6/uL Hgb 12.6 (12.0-16.0) g/dL Hct 38.5 (37.0-47.0) % MCV 93.7 (81.0-99.0) fL MCH 30.7 (27.0-31.0) pg MCHC 32.7 (32.0-36.0) g/dL RDW 13.0 (12.0-15.0) % Plt Count 305 (130-450) 10^3/uL MPV 9.9 (7.9-10.8) fL Neut # (Auto) 6.0 (1.5-6.6) 10^3/uL Lymph # (Auto) 4.8 H (1.5-3.5) 10^3/uL Gilchrist # (Auto) 0.8 (0.0-1.0) 10^3/uL Eos # (Auto) 0.2 (0.0-0.7) 10^3/uL Baso # (Auto) 0.1 (0.0-0.1) 10^3/uL Absolute Nucleated RBC 0.00 x10^3/uL Nucleated RBC % 0.0 /100WBC PT (9.9-12.6) secs INR (0.8-1.2) Bld Gas Analysis Time 2142 Sample Site LEFT RADIAL ABG pH 7.42 (7.35-7.45) ABG pCO2 30 L (34-45) mmHg ABG pO2 100 (80-100) mmHg ABG HCO3 19.0 L (22.0-26.0) mmol/L ABG Total CO2 19.9 L (21.0-29.0) MMOL/L ABG O2 Saturation 97 (94-98) % ABG Base Excess -4.1 L (-2.0-3.0) mmol/L Kenan Test UNKNOWN VBG pH (7.31-7.41) VBG pCO2 (41-51) mmHg VBG pO2 (25-47) mmHg VBG HCO3 (23-28) mmol/L VBG Total CO2 (24-29) mmol/L VBG O2 Saturation (60-80) % VBG Base Excess (-2 - +2) mmol/L Respiration Rate 18 b/min O2 Delivery Device VENTILATOR Vent Mode SIMV FiO2 30.00 Tidal Volume 400 mL PEEP 8 cmH2O Sodium 141 (135-145) mmol/L Potassium 3.4 L (3.5-5.0) mmol/L Chloride 111 (101-111) mmol/L Carbon Dioxide 22 (21-32) mmol/L Anion Gap 8.0 (6-13) BUN 7 (6-20) mg/dL Creatinine 0.4 (0.4-1.0) mg/dL Estimated GFR (MDRD) 196 (>89) Glucose 75 (70-100) mg/dL Calcium 7.7 L (8.5-10.3) mg/dL Total Bilirubin (0.2-1.0) mg/dL AST (10-42) IU/L ALT (10-60) IU/L Alkaline Phosphatase (42-121) IU/L Total Creatine Kinase (22-269) IU/L Total Protein (6.7-8.2) g/dL Albumin (3.2-5.5) g/dL Globulin (2.1-4.2) g/dL Albumin/Globulin Ratio (1.0-2.2) Lipase (22-51) U/L TSH (0.34-5.60) uIU/mL HCG, Quant mIU/mL Urine Color Urine Clarity (CLEAR) Urine pH (5.0-7.5) PH Ur Specific Chalmers (1.002-1.030) Urine Protein (NEGATIVE) mg/dL Urine Glucose (UA) (NEGATIVE) mg/dL Urine Ketones (NEGATIVE) mg/dL Urine Occult Blood (NEGATIVE) Urine Nitrite (NEGATIVE) Urine Bilirubin (NEGATIVE) Urine Urobilinogen (NORMAL) E.U./dL Ur Leukocyte Esterase (NEGATIVE) Ur Microscopic Review Urine Culture Comments Urine HCG, Qual Nasal Screen MRSA (PCR) (NEGATIVE) Salicylates mg/dL Urine Opiates Screen (NEGATIVE) Ur Oxycodone Screen (NEGATIVE) Urine Methadone Screen (NEGATIVE) Ur Propoxyphene Screen (NEGATIVE) Acetaminophen (10-30) ug/mL Ur Barbiturates Screen (NEGATIVE) Ur Tricyclics Screen (NEGATIVE) Ur Phencyclidine Scrn (NEGATIVE) Ur Amphetamine Screen (NEGATIVE) U Methamphetamines Scrn (NEGATIVE) U Benzodiazepines Scrn (NEGATIVE) Urine Cocaine Screen (NEGATIVE) U Cannabinoids Screen (NEGATIVE) Ethyl Alcohol mg/dL 03/30/20 03/30/20 03/30/20 Range/Units 21:13 20:45 20:35 WBC (4.8-10.8) x10^3/uL RBC (4.20-5.40) 10^6/uL Hgb (12.0-16.0) g/dL Hct (37.0-47.0) % MCV (81.0-99.0) fL MCH (27.0-31.0) pg MCHC (32.0-36.0) g/dL RDW (12.0-15.0) % Plt Count (130-450) 10^3/uL MPV (7.9-10.8) fL Neut # (Auto) (1.5-6.6) 10^3/uL Lymph # (Auto) (1.5-3.5) 10^3/uL Gilchrist # (Auto) (0.0-1.0) 10^3/uL Eos # (Auto) (0.0-0.7) 10^3/uL Baso # (Auto) (0.0-0.1) 10^3/uL Absolute Nucleated RBC x10^3/uL Nucleated RBC % /100WBC PT (9.9-12.6) secs INR (0.8-1.2) Bld Gas Analysis Time Sample Site ABG pH (7.35-7.45) ABG pCO2 (34-45) mmHg ABG pO2 (80-100) mmHg ABG HCO3 (22.0-26.0) mmol/L ABG Total CO2 (21.0-29.0) MMOL/L ABG O2 Saturation (94-98) % ABG Base Excess (-2.0-3.0) mmol/L Kenan Test VBG pH (7.31-7.41) VBG pCO2 (41-51) mmHg VBG pO2 (25-47) mmHg VBG HCO3 (23-28) mmol/L VBG Total CO2 (24-29) mmol/L VBG O2 Saturation (60-80) % VBG Base Excess (-2 - +2) mmol/L Respiration Rate b/min O2 Delivery Device Vent Mode FiO2 Tidal Volume mL PEEP cmH2O Sodium (135-145) mmol/L Potassium (3.5-5.0) mmol/L Chloride (101-111) mmol/L Carbon Dioxide (21-32) mmol/L Anion Gap (6-13) BUN (6-20) mg/dL Creatinine (0.4-1.0) mg/dL Estimated GFR (MDRD) (>89) Glucose (70-100) mg/dL Calcium (8.5-10.3) mg/dL Total Bilirubin (0.2-1.0) mg/dL AST (10-42) IU/L ALT (10-60) IU/L Alkaline Phosphatase (42-121) IU/L Total Creatine Kinase (22-269) IU/L Total Protein (6.7-8.2) g/dL Albumin (3.2-5.5) g/dL Globulin (2.1-4.2) g/dL Albumin/Globulin Ratio (1.0-2.2) Lipase (22-51) U/L TSH (0.34-5.60) uIU/mL HCG, Quant mIU/mL Urine Color YELLOW Urine Clarity CLEAR (CLEAR) Urine pH 6.0 (5.0-7.5) PH Ur Specific Chalmers <=1.005 (1.002-1.030) Urine Protein NEGATIVE (NEGATIVE) mg/dL Urine Glucose (UA) NEGATIVE (NEGATIVE) mg/dL Urine Ketones NEGATIVE (NEGATIVE) mg/dL Urine Occult Blood TRACE-LYSE (NEGATIVE) Urine Nitrite NEGATIVE (NEGATIVE) Urine Bilirubin NEGATIVE (NEGATIVE) Urine Urobilinogen 0.2 (NORMAL) (NORMAL) E.U./dL Ur Leukocyte Esterase NEGATIVE (NEGATIVE) Ur Microscopic Review NOT INDICATED Urine Culture Comments NOT INDICATED Urine HCG, Qual POSITIVE Nasal Screen MRSA (PCR) NEGATIVE (NEGATIVE) Salicylates mg/dL Urine Opiates Screen NEGATIVE (NEGATIVE) Ur Oxycodone Screen NEGATIVE (NEGATIVE) Urine Methadone Screen NEGATIVE (NEGATIVE) Ur Propoxyphene Screen NEGATIVE (NEGATIVE) Acetaminophen (10-30) ug/mL Ur Barbiturates Screen NEGATIVE (NEGATIVE) Ur Tricyclics Screen POSITIVE H (NEGATIVE) Ur Phencyclidine Scrn NEGATIVE (NEGATIVE) Ur Amphetamine Screen NEGATIVE (NEGATIVE) U Methamphetamines Scrn NEGATIVE (NEGATIVE) U Benzodiazepines Scrn NEGATIVE (NEGATIVE) Urine Cocaine Screen NEGATIVE (NEGATIVE) U Cannabinoids Screen NEGATIVE (NEGATIVE) Ethyl Alcohol mg/dL 03/30/20 03/30/20 03/30/20 Range/Units 20:30 20:30 20:30 WBC (4.8-10.8) x10^3/uL RBC (4.20-5.40) 10^6/uL Hgb (12.0-16.0) g/dL Hct (37.0-47.0) % MCV (81.0-99.0) fL MCH (27.0-31.0) pg MCHC (32.0-36.0) g/dL RDW (12.0-15.0) % Plt Count (130-450) 10^3/uL MPV (7.9-10.8) fL Neut # (Auto) (1.5-6.6) 10^3/uL Lymph # (Auto) (1.5-3.5) 10^3/uL Gilchrist # (Auto) (0.0-1.0) 10^3/uL Eos # (Auto) (0.0-0.7) 10^3/uL Baso # (Auto) (0.0-0.1) 10^3/uL Absolute Nucleated RBC x10^3/uL Nucleated RBC % /100WBC PT (9.9-12.6) secs INR (0.8-1.2) Bld Gas Analysis Time Sample Site ABG pH (7.35-7.45) ABG pCO2 (34-45) mmHg ABG pO2 (80-100) mmHg ABG HCO3 (22.0-26.0) mmol/L ABG Total CO2 (21.0-29.0) MMOL/L ABG O2 Saturation (94-98) % ABG Base Excess (-2.0-3.0) mmol/L Kenan Test VBG pH 7.290 L (7.31-7.41) VBG pCO2 43.9 (41-51) mmHg VBG pO2 43.5 (25-47) mmHg VBG HCO3 20.6 L (23-28) mmol/L VBG Total CO2 22.0 L (24-29) mmol/L VBG O2 Saturation 78.3 (60-80) % VBG Base Excess -5.8 L (-2 - +2) mmol/L Respiration Rate b/min O2 Delivery Device Vent Mode FiO2 Tidal Volume mL PEEP cmH2O Sodium (135-145) mmol/L Potassium (3.5-5.0) mmol/L Chloride (101-111) mmol/L Carbon Dioxide (21-32) mmol/L Anion Gap (6-13) BUN (6-20) mg/dL Creatinine (0.4-1.0) mg/dL Estimated GFR (MDRD) (>89) Glucose (70-100) mg/dL Calcium (8.5-10.3) mg/dL Total Bilirubin (0.2-1.0) mg/dL AST (10-42) IU/L ALT (10-60) IU/L Alkaline Phosphatase (42-121) IU/L Total Creatine Kinase (22-269) IU/L Total Protein (6.7-8.2) g/dL Albumin (3.2-5.5) g/dL Globulin (2.1-4.2) g/dL Albumin/Globulin Ratio (1.0-2.2) Lipase (22-51) U/L TSH 0.39 (0.34-5.60) uIU/mL HCG, Quant 218.43 mIU/mL Urine Color Urine Clarity (CLEAR) Urine pH (5.0-7.5) PH Ur Specific Chalmers (1.002-1.030) Urine Protein (NEGATIVE) mg/dL Urine Glucose (UA) (NEGATIVE) mg/dL Urine Ketones (NEGATIVE) mg/dL Urine Occult Blood (NEGATIVE) Urine Nitrite (NEGATIVE) Urine Bilirubin (NEGATIVE) Urine Urobilinogen (NORMAL) E.U./dL Ur Leukocyte Esterase (NEGATIVE) Ur Microscopic Review Urine Culture Comments Urine HCG, Qual Nasal Screen MRSA (PCR) (NEGATIVE) Salicylates mg/dL Urine Opiates Screen (NEGATIVE) Ur Oxycodone Screen (NEGATIVE) Urine Methadone Screen (NEGATIVE) Ur Propoxyphene Screen (NEGATIVE) Acetaminophen (10-30) ug/mL Ur Barbiturates Screen (NEGATIVE) Ur Tricyclics Screen (NEGATIVE) Ur Phencyclidine Scrn (NEGATIVE) Ur Amphetamine Screen (NEGATIVE) U Methamphetamines Scrn (NEGATIVE) U Benzodiazepines Scrn (NEGATIVE) Urine Cocaine Screen (NEGATIVE) U Cannabinoids Screen (NEGATIVE) Ethyl Alcohol mg/dL 03/30/20 03/30/20 03/30/20 Range/Units 20:30 20:30 20:30 WBC 9.8 (4.8-10.8) x10^3/uL RBC 4.40 (4.20-5.40) 10^6/uL Hgb 13.8 (12.0-16.0) g/dL Hct 41.2 (37.0-47.0) % MCV 93.6 (81.0-99.0) fL MCH 31.4 H (27.0-31.0) pg MCHC 33.5 (32.0-36.0) g/dL RDW 12.6 (12.0-15.0) % Plt Count 331 (130-450) 10^3/uL MPV 9.5 (7.9-10.8) fL Neut # (Auto) 5.4 (1.5-6.6) 10^3/uL Lymph # (Auto) 3.8 H (1.5-3.5) 10^3/uL Gilchrist # (Auto) 0.4 (0.0-1.0) 10^3/uL Eos # (Auto) 0.2 (0.0-0.7) 10^3/uL Baso # (Auto) 0.1 (0.0-0.1) 10^3/uL Absolute Nucleated RBC 0.00 x10^3/uL Nucleated RBC % 0.0 /100WBC PT 12.6 (9.9-12.6) secs INR 1.1 (0.8-1.2) Bld Gas Analysis Time Sample Site ABG pH (7.35-7.45) ABG pCO2 (34-45) mmHg ABG pO2 (80-100) mmHg ABG HCO3 (22.0-26.0) mmol/L ABG Total CO2 (21.0-29.0) MMOL/L ABG O2 Saturation (94-98) % ABG Base Excess (-2.0-3.0) mmol/L Kenan Test VBG pH (7.31-7.41) VBG pCO2 (41-51) mmHg VBG pO2 (25-47) mmHg VBG HCO3 (23-28) mmol/L VBG Total CO2 (24-29) mmol/L VBG O2 Saturation (60-80) % VBG Base Excess (-2 - +2) mmol/L Respiration Rate b/min O2 Delivery Device Vent Mode FiO2 Tidal Volume mL PEEP cmH2O Sodium 141 (135-145) mmol/L Potassium 3.7 (3.5-5.0) mmol/L Chloride 110 (101-111) mmol/L Carbon Dioxide 24 (21-32) mmol/L Anion Gap 7.0 (6-13) BUN < 5 L (6-20) mg/dL Creatinine 0.6 (0.4-1.0) mg/dL Estimated GFR (MDRD) 123 (>89) Glucose 82 (70-100) mg/dL Calcium 8.5 (8.5-10.3) mg/dL Total Bilirubin 0.6 (0.2-1.0) mg/dL AST 27 (10-42) IU/L ALT 25 (10-60) IU/L Alkaline Phosphatase 63 (42-121) IU/L Total Creatine Kinase 149 (22-269) IU/L Total Protein 7.4 (6.7-8.2) g/dL Albumin 4.3 (3.2-5.5) g/dL Globulin 3.1 (2.1-4.2) g/dL Albumin/Globulin Ratio 1.4 (1.0-2.2) Lipase 30 (22-51) U/L TSH (0.34-5.60) uIU/mL HCG, Quant mIU/mL Urine Color Urine Clarity (CLEAR) Urine pH (5.0-7.5) PH Ur Specific Chalmers (1.002-1.030) Urine Protein (NEGATIVE) mg/dL Urine Glucose (UA) (NEGATIVE) mg/dL Urine Ketones (NEGATIVE) mg/dL Urine Occult Blood (NEGATIVE) Urine Nitrite (NEGATIVE) Urine Bilirubin (NEGATIVE) Urine Urobilinogen (NORMAL) E.U./dL Ur Leukocyte Esterase (NEGATIVE) Ur Microscopic Review Urine Culture Comments Urine HCG, Qual Nasal Screen MRSA (PCR) (NEGATIVE) Salicylates < 6.0 mg/dL Urine Opiates Screen (NEGATIVE) Ur Oxycodone Screen (NEGATIVE) Urine Methadone Screen (NEGATIVE) Ur Propoxyphene Screen (NEGATIVE) Acetaminophen < 10 L (10-30) ug/mL Ur Barbiturates Screen (NEGATIVE) Ur Tricyclics Screen (NEGATIVE) Ur Phencyclidine Scrn (NEGATIVE) Ur Amphetamine Screen (NEGATIVE) U Methamphetamines Scrn (NEGATIVE) U Benzodiazepines Scrn (NEGATIVE) Urine Cocaine Screen (NEGATIVE) U Cannabinoids Screen (NEGATIVE) Ethyl Alcohol 294.4 mg/dL Sepsis Event Note (H) - Evaluation Current Stage of Sepsis: Ruled out Assessment/Plan - Problem List (1) Encephalopathy Impression: She was encephalopathic yesterday and unresponsive requiring intubation for airway protection. The etiology of this is not clear. She did have an elevated alcohol level but it is unlikely this alone would cause her to become so unresponsive. Urine tox was positive for TCAs but otherwise unremarkable. The patient after being extubated does not recall what happened yesterday. She reports drinking tequila but denies any drug use or ingesting any medications. Remembers she was at home drawing which is what her psychologist had recommended. CT the head was unremarkable. She has no focal deficits on exam today. Social work has been consulted for mental health evaluation given her history of anxiety/depression. I did also speak with her physician, Dr. Domínguez who was quite concerned about her mental health. He will be talking with russ clemens as he feels she would benefit from transfer to [facility] once she is medically cleared. (2) Respiratory failure requiring intubation Impression: She had been intubated due to apneic episodes. She is currently awake on the vent with minimal settings. We will extubate her today. (3) Alcohol intoxication Impression: Alcohol was greater than 200 yesterday. She did report drinking alcohol prior to her hospitalization. I am not sure that this explains her unresponsiveness and change in mental status alone. She had been started on a banana bag empirically and we will switch her to oral thiamine and multivitamin. Qualifiers: Complication of substance-induced condition: with delirium Qualified Code(s): F10.921 - Alcohol use, unspecified with intoxication delirium (4) at early stage Impression: Beta-hCG is elevated at 200 and ultrasound did not show an intrauterine pregnanc y. She was ealuated by OB who recommended obtaining a beta-hCG and ultrasound in 1 week. Will start her on vitamins. (5) Rheumatoid arthritis Impression: She has history of rheumatoid arthritis which takes prednisone, Humira, Plaquenil. Her prednisone and Plaquenil have been resumed. (6) Right ankle pain Impression: The etiology is not clear at this time. I suspect she may have fell when she was unresponsive and may have potentially sprained or torn a ligament. Do not suspect fracture given her exam findings. We will treat her with Tylenol as needed. If there is no improvement then we will obtain an x-ray but will hold off at this time being given she is . Qualifiers: Chronicity: acute Qualified Code(s): M25.571 - Pain in right ankle and joints of right foot
--- NOTE | 2020-03-31 07:57 | PHARMACY PROGRESS NOTE ---
- Best Possible Medication History Admit Date and Time: 03/30/20 2238 Processed by: Pharmacy Medication History completed: Yes Patient Interview: Pt unable to participate Secondary Source(s): Pharmacy records, Insurance records As the person ultimately responsible for medication therapy, providers are able to order a medication from an existing home medication list in [facility] via the "Reconcile Routine" prior to Confirmation of that medication by cad application support specialist. Such practice is discouraged except when the physician, in their clinical judgment, deems that a medical need exists for a medication without regard to previous use.
[2020-03-31 08:41] LABS: VBG PH 7.336 (7.31-7.41)
[2020-03-31] MEDS ORDERED: FAMOTIDINE 20 MG/2 ML SYRINGE IVP SCH (09:00)
[2020-03-31] MEDS ORDERED: MULTIVITAMIN 10 ML, THIAMINE INJ 100 MG, FOLIC ACID INJ 1 MG in SODIUM CHLORIDE 0.9% 1,... IV SCH (09:00)
[2020-03-31] MEDS ORDERED: POTASSIUM CHLOR 10 MEQ/100 ML 10 MEQ/100 ML BAG IV SCH (09:00)
[2020-03-31] MEDS ORDERED: POTASSIUM CHLORIDE INJ 40 MEQ in SODIUM CHLORIDE 0.9% 500 ML IV ONE (09:00)
[2020-03-31] MEDS ORDERED: ONDANSETRON 4 MG/2 ML VIAL IVP PRN (10:38)
[2020-03-31] MEDS ORDERED: ONDANSETRON ODT 4 MG TABLET TL PRN (10:38)
[2020-03-31] MEDS: THIAMINE 100 MG TABLET PO SCH (11:26)
[2020-03-31] MEDS: predniSONE 5 MG TABLET PO SCH (11:26)
[2020-03-31] MEDS: DULoxetine 30 MG CAPSULE PO SCH (11:26)
[2020-03-31] MEDS: PRENATAL VITAMIN TABLET PO SCH (11:26)
[2020-03-31] MEDS: HYDROXYCHLOROQUINE 200 MG TABLET PO SCH ×2 (11:30→20:58)
[2020-03-31] MEDS: CALCIUM CITRATE 250 MG TABLET PO SCH ×3 (13:34→20:58)
[2020-03-31] MEDS ORDERED: ACETAMINOPHEN 325 MG TABLET PO PRN (16:37)
[2020-03-31] MEDS ORDERED: DULoxetine 30 MG CAPSULE PO SCH (21:00)
[2020-03-31] MEDS ORDERED: AMITRIPTYLINE 25 MG TABLET PO SCH (21:00)
[2020-04-01] MEDS: SODIUM CHLORIDE 0.9% 1,000 ML IV SCH ×3 (00:21→12:26)
[2020-04-01] MEDS: SODIUM CHLORIDE FLUSH 0.9% 10 ML SYRINGE IVP SCH ×3 (00:22→16:22)
[2020-04-01 05:44] LABS: BASOPHILS # (AUTO) 0.1 10^3/uL (0.0-0.1); BASOPHILS % (AUTO) 0.7 %; EOSINOPHILS # (AUTO) 0.3 10^3/uL (0.0-0.7); HGB - HEMOGLOBIN 12.3 g/dL (12.0-16.0); LYMPHOCYTES # (AUTO) 4.3 10^3/uL (1.5-3.5); LYMPHOCYTES % (AUTO) 42.9 %; MEAN CORPUSCULAR HEMOGLOBIN 30.6 pg (27.0-31.0); MEAN CORPUSCULAR HGB CONC 33.9 g/dL (32.0-36.0); MEAN CORPUSCULAR VOLUME 90.3 fL (81.0-99.0); MEAN PLATELET VOLUME 9.4 fL (7.9-10.8); MONOCYTES # (AUTO) 0.7 10^3/uL (0.0-1.0); MONOCYTES % (AUTO) 7.3 %; NEUTROPHILS # (AUTO) 4.6 10^3/uL (1.5-6.6); NEUTROPHILS % (AUTO) 45.7 %; PLT - PLATELET COUNT 280 10^3/uL (130-450); RED BLOOD COUNT 4.02 10^6/uL (4.20-5.40); RED CELL DISTRIBUTION WIDTH 12.5 % (12.0-15.0); WHITE BLOOD COUNT 10.1 x10^3/uL (4.8-10.8)
[2020-04-01 05:46] LABS: VBG PH 7.434 (7.31-7.41)
[2020-04-01 06:16] LABS: BUN - BLOOD UREA NITROGEN < 5 mg/dL (6-20); CALCIUM 8.3 mg/dL (8.5-10.3); CARBON DIOXIDE - CO2 24 mmol/L (21-32); CHLORIDE 103 mmol/L (101-111); CREATININE 0.5 mg/dL (0.4-1.0); GLUCOSE 87 mg/dL (70-100); MAGNESIUM 1.8 mg/dL (1.7-2.8); PHOSPHORUS 3.2 mg/dL (2.5-4.6); SODIUM 137 mmol/L (135-145)
[2020-04-01] MEDS ORDERED: POTASSIUM CHLORIDE 20 MEQ TABLET PO ONE (07:36)
[2020-04-01] MEDS ORDERED: polyethylene glycoL 3350 17 GM PACKET PO SCH (09:00)
[2020-04-01] MEDS ORDERED: DOCUSATE SODIUM 250 MG CAPSULE PO SCH (09:00)
[2020-04-01] MEDS: THIAMINE 100 MG TABLET PO SCH (09:07)
[2020-04-01] MEDS: PRENATAL VITAMIN TABLET PO SCH (09:07)
[2020-04-01] MEDS: CALCIUM CITRATE 250 MG TABLET PO SCH (09:08)
[2020-04-01] MEDS: DULoxetine 30 MG CAPSULE PO SCH (09:08)
[2020-04-01] MEDS: HYDROXYCHLOROQUINE 200 MG TABLET PO SCH (09:08)
[2020-04-01] MEDS: POTASSIUM CHLOR 10 MEQ/100 ML 10 MEQ/100 ML BAG IV SCH ×2 (09:11→10:30)
[2020-04-01] MEDS: predniSONE 5 MG TABLET PO SCH (09:18)
--- NOTE | 2020-04-01 16:53 | DISCHARGE SUMMARY ---
"Discharge Summary Admit Date: 03/30/20 Discharge Date: 04/01/20 Discharging Provider: Denis Bravo Primary Care Provider: Dr. Domínguez Condition at Discharge: Stable Discharge Disposition: 02 Transfer Acute Care Hosp Discharge Facility Name: [facility] - DIAGNOSES Admission Diagnoses: 1. Acute respiratory failure requiring intubation 2. Alcohol intoxication 3. Positive screening test 4. Rheumatoid arthritis and Sjogren's syndrome Discharge Diagnoses with Status of Each Condition: (1) Encephalopathy resolved. CT of head was unremarkable. (2) Respiratory failure requiring intubation resolved. it is unknown exact etiology. pt has alcohol level at 294. pt has 99% sats on room air. pt has no fever, chill, cough, shortness of breath, muscle pain. clinically pt is unlikely to have Covid 19. this conditions were reported to Dr. Perez. (3) Alcohol intoxication resolved. pt has no alcohol withdrawal in hospital. advise pt quit alcohol. pt state she will (4) at early stage pt has elevated HCG, US reveals unremarkable. OBGYN was consulted, Recommend repeat quant HCG and transvaginal scan. discussed with pt, she understood. I discussed the care plan with Dr. Perez as well. I discussed all meds pt took in hospital with , and answered 's all questions. (5) Rheumatoid arthritis stable. (6) Right ankle pain resolved. pt denies any more pain (7) unexplainable wound pt has 4 unexplained nails in her body and has evidence of picking of her skin on her hands. when I talk these finding with pt, pt report she has lots of green party but she smiles and did not answer directly why she has these kind of skin tear and nails in her body. Pt report she has been on [place] before. social and human services assistant assessed pt and recommended pt go to [facility] for further evaluation and treatment. pt also had respiratory failure at this time and needed to be intubation. pt agreed to go to [facility] as well. I discussed with Dr. Domínguez, pt 's PCP in [place]. agreed pt be transfered to [facility] for further psychologic evaluation. I reported pt's all medical conditions to Dr. Perez (8)skin tear pt has multiple skin tears. it was unlikely infected. pt denies pain. pt has no fever, and pt has normal arrange WBC. - HPI History of Present Illness: refer from Dr. Coy's HPI on 03/30/2020 as the below The emergency room work-up was relatively unremarkable including a CT scan of the head that was normal, as well as relatively unremarkable labs with the exception of mild respiratory acidosis secondary to hypercapnia. However, her test was positive with a mildly elevated beta hCG level. PACKAGER AND STRAPPER was consulted regarding this, and a first trimester OB ultrasound was ordered showing no presence of a intrauterine , consistent with the early and low level of beta hCG. Patient was administered the appropriate sedatives for intubation, and at the time of admission patient was already intubated and unable to provide history. - CONSULTS | PROCEDURES Consultations: Dr. Melchor Procedures: no - HOSPITAL COURSE Hospital Course: Patient was admitted for respiratory failure. patient needed intubation. Patient also found alcohol intoxication. Patient was found to have 4 nails and multiple location of skin tears in her body. Patient had short time intubated and patient extubated later. CT of the head was unremarkable.Patient was found to have early as well. Patient encephalopathy is resolved. social work assessed pt's Mental status and psychological status, patient was recommendated to [facility] for further psychological evaluation and treatment, patient agreeing to be transfer to [facility].The detailed hospital course is as below. (1) Encephalopathy resolved. CT of head was unremarkable. (2) Respiratory failure requiring intubation resolved. it is unknown exact etiology. pt has alcohol level at 294. pt has 99% sats on room air. pt has no fever, chill, cough, shortness of breath, muscle pain. clinically pt is unlikely to have Covid 19. this conditions were reported to Dr. Perez. (3) Alcohol intoxication resolved. pt has no alcohol withdrawal in hospital. advise pt quit alcohol. pt state she will (4) at early stage pt has elevated HCG, US reveals unremarkable. OBGYN was consulted, Recommend repeat quant HCG and transvaginal scan. discussed with pt, she understood. I discussed the care plan with Dr. Perez as well. I discussed all meds pt took in hospital with , and answered 's all questions. (5) Rheumatoid arthritis stable. (6) Right ankle pain resolved. pt denies any more pain (7) unexplainable wound pt has 4 unexplained nails in her body and has evidence of picking of her skin on her hands. when I talk these finding with pt, pt report she has lots of green party but she smiles and did not answer directly why she has these kind of skin tear and nails in her body. Pt report she has been on [facility] before. social and human services assistant assessed pt and recommended pt go to [facility] for further evaluation and treatment. pt also had respiratory failure at this time and needed to be intubation. pt agreed to go to [facility] as well. I discussed with Dr. Domínguez, pt's PCP in [place]. agreed pt be transfered to [facility] for further psychologic evaluation. I reported pt's all medical conditions to Dr. Perez (8)skin tear pt has multiple skin tears. it was unlikely infected. pt denies pain. pt has no fever, and pt has normal arrange WBC. - ALLERGIES Allergies/Adverse Reactions: Allergies Allergy/AdvReac Type Severity Reaction Status Date / Time No Known Drug Allergies Allergy Verified 03/30/20 21:18 - MEDICATIONS Home Medications: Ambulatory Orders Medication Instructions Recorded Confirmed Hydroxychloroquine [Plaquenil] 200 mg PO BID 08/18/19 03/31/20 predniSONE [Prednisone] 7.5 mg PO DAILY 03/31/20 03/31/20 Docusate Sodium 250Mg Capsule 250 - 500 mg PO DAILY PRN #10 04/01/20 [Colace 250Mg Capsule] capsule Vitamin [Trinatal Rx 1] 1 tab PO DAILYWM #10 tablet 04/01/20 Thiamine [Vitamin B-1] 100 mg PO DAILY #10 tablet 04/01/20 - PHYSICAL EXAM AT DISCHARGE General Appearance: positive: No acute distress, Alert. negative: Lethargic Eyes Bilateral: positive: Normal inspection, PERRL, No lid inflammation ENT: positive: ENT inspection nml, Pharynx nml, No signs of dehydration. negative: Purulent nasal drainage Neck: positive: Nml inspection, Thyroid nml, No JVD, Trachea midline. negative: Thyromegaly, Stiff neck, Tracheal deviation Respiratory: positive: Chest non-tender, No respiratory distress, Breath sounds nml. negative: Wheezes Cardiovascular: positive: Regular rate & rhythm, No murmur, No gallop. negative: Irregularly irregular, Tachycardia, Bradycardia, Systolic murmur, Diastolic murmur Peripheral Pulses: positive: 2+ Abdomen: positive: Non-tender, No organomegaly, Nml bowel sounds, No distention. negative: Tenderness, Guarding, Rebound Back: positive: Nml inspection. negative: CVA tenderness (R), CVA tenderness (L) Skin: positive: Warm, Dry. negative: Cyanosis, Diaphoresis, Pallor Extremities: positive: Non-tender, Full ROM, Nml appearance. negative: Calf tenderness, Geni's sign/cords Neurologic/Psychiatric: positive: Oriented x3, Motor nml, Sensation nml. negative: Weakness, Sensory loss, Facial droop, Slurred/abnml speech, Depressed mood/affect - LABS Result Diagrams: 04/01/20 05:34 04/01/20 12:26 - SEPSIS Current Stage of Sepsis: Ruled out - FOLLOW UP Follow Up: transferred to [facility] for further management. - TIME SPENT Time Spent in Discharge (Minutes): 30"
[2020-04-01 17:22] VITALS: BP 130/79
--- NOTE | 2020-04-01 19:02 | Discharge Plan ---
Discharge Plan Problem Reviewed?: Yes Disposition: 02 Transfer Acute Care Hosp Condition: Stable Prescriptions: Docusate Sodium 250Mg Capsule [Colace 250Mg Capsule] 250 - 500 mg PO DAILY PRN #10 capsule PRN Reason: Constipation Vitamin [Trinatal Rx 1] 1 tab PO DAILYWM #10 tablet Thiamine [Vitamin B-1] 100 mg PO DAILY #10 tablet Diet: Regular Activity Restrictions: Activity as Tolerated Shower Restrictions: No (fall precaution) Health Concerns: I reported pt's conditions to Dr. Perez and discussed pt's medication, special pt has now with Dr. Perez. Dr. Perez accepted pt. Plan of Treatment: I reported pt's conditions to Dr. Perez and discussed pt's medications, special pt has now with Dr. Perez. Answered Dr. Perez's questions. Dr. Perez accepted pt. Assessment: social service liaison assessed pt, recommend pt to be transferred to [facility]. discussed with pt for the care plan. pt agreed and volunteer to be transferred to [facility] for further management. Additional Instructions or Follow Up instructions: transferred to [facility]. No Smoking: If you smoke, Please STOP! Call for help.
== END 2020-04-01 19:32 | DRG 831 ==
LOC: EDUNIT# → ED 20:20 → ICU 22:38 → MS2 03-31 18:33
PROVIDERS: ADMIT Family Medicine Sports Medicine; ATTEND Nurse Practitioner Gerontology
PROC: 5A1935Z Respiratory Ventilation, Less than 24 Consecutive Hours (ICD-10-PCS; principal; 2020-03-30)
DX: O99.511 Diseases of the respiratory system complicating pregnancy, first trimester (principal); J96.00 Acute respiratory failure, unspecified whether with hypoxia or hypercapnia; G93.40 Encephalopathy, unspecified; F10.921 Alcohol use, unspecified with intoxication delirium; O99.311 Alcohol use complicating pregnancy, first trimester; O99.351 Diseases of the nervous system complicating pregnancy, first trimester; Y90.8 Blood alcohol level of 240 mg/100 ml or more; O23.11 Infections of bladder in pregnancy, first trimester; O99.341 Other mental disorders complicating pregnancy, first trimester; F41.9 Anxiety disorder, unspecified; F32.9 Major depressive disorder, single episode, unspecified; O99.89 Other specified diseases and conditions complicating pregnancy, childbirth and the puerperium; M06.9 Rheumatoid arthritis, unspecified; M35.00 Sjogren syndrome, unspecified; T14.8XXA Other injury of unspecified body region, initial encounter; W45.0XXA Nail entering through skin, initial encounter; Y92.9 Unspecified place or not applicable; M25.571 Pain in right ankle and joints of right foot; R40.2432 Glasgow coma scale score 3-8, at arrival to emergency department; Z78.1 Physical restraint status; Z03.818 Encounter for observation for suspected exposure to other biological agents ruled out; R82.5 Elevated urine levels of drugs, medicaments and biological substances; Z79.52 Long term (current) use of systemic steroids
CPT/HCPCS: 31500; 36415; 70450; 71045; 76801; 80048; 80053; 80306; 80307; 80320; 80329; 81003; 81025; 82330; 82550; 82803; 83690; 83735; 84100; 84132; 84443; 84702; 85025; 85610; 87150; 93005; 94002; 94003; 96365; 96375; 96376; 99291; A9270; J3411; J7040; J7512; 81001; 82310; 87086; 94770

== ENCOUNTER 2020-05-05 12:22 | Day surgery (SDC) | payer OTHER ==
[2020-05-05] MEDS ORDERED: LACTATED RINGERS 1,000 ML IV ONE ×2 (12:27→15:40)
--- NOTE | 2020-05-05 13:26 | ANESTHESIA ---
Pre-Anesthesia VS, & Labs - Diagnosis missed AB - Procedure suction D&C Vital Signs: Temp Pulse Resp BP Pulse Ox 36.4 C L 73 18 118/73 100 05/05/20 12:28 05/05/20 12:28 05/05/20 12:28 05/05/20 12:28 05/05/20 12:28 Height 5 ft 0.63 in Weight (kg) 74 kg Body Mass Index 28.6 - NPO >8 hours - Is Patient ?: Yes - Lab Results Lab results reviewed: Yes Home Medications and Allergies Home Medications: Ambulatory Orders Adalimumab [Humira] 40 mg SQ OAW 05/01/20 Adalimumab [Humira] 40 mg SQ OAW 05/01/20 Allergies/Adverse Reactions: Allergies Allergy/AdvReac Type Severity Reaction Status Date / Time No Known Drug Allergies Allergy Verified 05/01/20 08:28 Anes History & Medical History - Anesthetic History Anesthesia Complications: reports: No previous complications Family history of Anesthesia Complications: Denies Family history of Malignant Hyperthermia: Denies - Medical History Cardiovascular: reports: None Pulmonary: reports: None Gastrointestinal: reports: None Urinary: reports: None Musculoskeletal: reports: Rheumatoid arthritis, Other Endocrine/Autoimmune: reports: None, Systemic lupus erythematosus Skin: reports: None Smoking Status: Unknown if ever smoked Psychosocial: reports: Depression, Anxiety, Other - Surgical History General: Cholecystectomy Orthopedic: Other Exam General: Alert, Oriented x3, Cooperative Dental: WNL Mouth Opening: Greater than 4 Fingerbreadths Neck Mobility: Normal Mallampati classification: III Thyromental Distance: 4-6 cm Respiratory: Lungs clear Cardiovascular: Regular rate Plan Anesthesia Type: General Consent for Procedure(s) Verified and Reviewed: Yes Code Status: Attempt Resuscitation ASA classification: 2-Mild systemic disease Is this case an emergency?: No
[2020-05-05] MEDS ORDERED: LIDOCAINE 1% 50 ML MDV ONE (15:05)
[2020-05-05] MEDS ORDERED: LIDOCAINE 1% 50 ML MDV SUBQ ONE (15:30)
[2020-05-05] MEDS ORDERED: HYDROcod/ACETAM 10 MG/325 MG TABLET PO PRN (15:38)
--- NOTE | 2020-05-05 15:43 | OPERATIVE REPORT ---
Operative Report - General Procedure Date: 05/05/20 Planned Procedure: Suction curettage Pre-Op Diagnosis: KIMMY Procedure Performed: Missed Post Op Diagnosis: KIMMY - Procedure Note Primary Surgeon: Lynette Anesthesia Provider: Bairon Anesthesia Technique: General LMA, Regional block Pathology: Products of conception IV Fluids (mL): 1,000 Estimated Blood Loss (mL): 25 Indications: Missed Ab Findings: Exam under anesthesia: Uterus was 10-12 weeks size. No adnexal masses. Operative findings: Uterus sound 12 cm. Moderate amount of products of conception. Complications: none - Other Other Information/Narrative: The patient was brought to the operating room and placed supine on the operating table. She was then given general anesthesia by LMA and prepped and draped in the usual sterile fashion in low lithotomy yellow fin stirrups. A time-out was performed. A sterile bivalved speculum was then placed into the vagina, and the anterior lip of the cervix was grasped with a single-tooth tenaculum. 1% lidocaine was then injected at the 2:00, 4:00, 7:00, and 10:00 positions for a paracervical block. Serial dilation using Hegar dilators was then performed until a 10 mm curved rigid suction curette could be gently advanced to the uterine fundus. Using gentle suction, tissue and clot were removed. Sharp curettage was then performed with minimal additional tissue noted. Good crie was noted on all 4 matthew of the uterus. The suction curette was then reintroduced to ensure there was no residual tissue, and none was noted. There was minimal bleeding from the cervix at this time. The tenaculum was removed, and the tenaculum sites were hemostatic without need for silver nitrate. At this point, the procedure was deemed completed. Sponge, lap, and needle count were correct x 3, and there were no complications. The patient was awakened, replaced supine, and transferred to the PACU in stable condition
[2020-05-05] MEDS ORDERED: KETOROLAC 30 MG/ML VIAL ONE (15:49)
[2020-05-05 16:13] VITALS: BP 120/75
== END 2020-05-05 12:23 | disposition home or self-care (01) ==
LOC: SDS 12:22
PROVIDERS: ATTEND Obstetrics & Gynecology
PROC: 10D17Z9 Manual Extraction of Products of Conception, Retained, Via Natural or Artificial Opening (ICD-10-PCS; principal; 2020-05-05 13:45)
DX: O02.1 Missed abortion (principal); F17.290 Nicotine dependence, other tobacco product, uncomplicated

== ENCOUNTER 2020-07-22 20:51 | Outpatient (CLI) | payer OTHER | END 2020-07-22 20:52 | disposition critical access hospital (66) | LOC: EMS 20:51 | PROVIDERS: ATTEND Surgery | DX: O9A.211 Injury, poisoning and certain other consequences of external causes complicating pregnancy, first trimester (principal); S51.819A Laceration without foreign body of unspecified forearm, initial encounter; W26.0XXA Contact with knife, initial encounter; Y93.G1 Activity, food preparation and clean up; Y92.000 Kitchen of unspecified non-institutional (private) residence as the place of occurrence of the external cause ==

== ENCOUNTER 2020-07-22 21:08 | Emergency (ER) | payer OTHER ==
--- NOTE | 2020-07-22 23:23 | ED Physician Documentation ---
History of Present Illness - Stated complaint Stated Complaint: ARM LAC - Chief complaint Chief Complaint: Laceration - History obtained from History obtained from: Patient - Additonal information Additional information: Patient is a 25-year-old female who reports she was cleaning a knife in the kitchen when she accidentally cut the dorsal aspect of her left wrist. She denies any intentional harm. She reports she is right-hand dominant otherwise she denies any other complaints.Patient reports her tetanus is up-to-date. Review of Systems Constitutional: reports: Reviewed and negative Eyes: reports: Reviewed and negative Ears: reports: Reviewed and negative Nose: reports: Reviewed and negative Throat: reports: Reviewed and negative Cardiac: reports: Reviewed and negative Respiratory: reports: Reviewed and negative GI: reports: Reviewed and negative : reports: Reviewed and negative Skin: reports: Laceration (s) Musculoskeletal: reports: Reviewed and negative Neurologic: reports: Reviewed and negative Psychiatric: reports: Reviewed and negative Endocrine: reports: Reviewed and negative Immunocompromised: reports: Reviewed and negative PD PAST MEDICAL HISTORY - Past Medical History Cardiovascular: None Respiratory: None Endocrine/Autoimmune: None, Systemic lupus erythematosus GI: None : None HEENT: None Psych: Depression, Anxiety, Other Musculoskeletal: Rheumatoid arthritis, Other Derm: None - Past Surgical History Past Surgical History: Yes General: Cholecystectomy Ortho: Other - Present Medications Home Medications: Ambulatory Orders Medication Instructions Recorded Confirmed Vitamin [Trinatal Rx 1] 1 tab PO DAILYWM #10 tablet 04/01/20 Adalimumab [Humira] 40 mg SQ OAW 05/01/20 05/01/20 - Allergies Allergies/Adverse Reactions: Allergies Allergy/AdvReac Type Severity Reaction Status Date / Time No Known Drug Allergies Allergy Verified 05/01/20 08:28 - Social History Does the pt smoke?: No Smoking Status: Unknown if ever smoked Does the pt drink ETOH?: No Does the pt have substance abuse?: No - Immunizations Immunizations are current?: Yes - POLST Patient has POLST: No POLST Status: Full Code (Patient is intubated at the time of admission, so would have to presume full code) PD ED PE NORMAL - Vitals Vital signs reviewed: Yes - General General: Alert and oriented X 3, No acute distress, Well developed/nourished - HEENT HEENT: PERRL - Neck Neck: Supple, no meningeal sign - Cardiac Cardiac: RRR, No murmur, Strong equal pulses - Respiratory Respiratory: Clear bilaterally - Abdomen Abdomen: Normal bowel sounds, Soft, Non tender, Non distended - Derm Derm: Warm and dry, Other (On the dorsal aspect of the left wrist proximal to the carpal bones there is a 2 and half centimeter linear laceration.) - Extremities Extremities: No deformity, Other (2 and half centimeter to the dorsal aspect of the left distal forearm. Radian, median, ulnar motor and sensory exam are intact.Compartments are soft, neurovascular intact) - Neuro Neuro: Alert and oriented X 3, dispatcher clerk 2-12 intact, Normal speech - Psych Psych: Normal mood, Normal affect Results - Vitals Vitals: Vital Signs - 24 hr 07/22/20 07/22/20 07/23/20 21:16 22:00 02:49 Temperature 36.7 C Heart Rate 85 85 87 Respiratory 24 14 18 Rate Blood Pressure 119/81 H 118/68 129/81 H O2 Saturation 99 99 98 Oxygen O2 Source Room air Procedures - Laceration (location) Upper extremity left Dorsal Length in cm: 2.5 Wound type: Linear Neurovascular status: Sensory intact, Motor intact, Vascular intact Tendon involvement: Tendon intact Anesthesia: Lidocaine 1% with epi, Volume - enter cc (3) Wound Preparation: Irrigated copiously NS, Wound explored, To the base, Other (No foreign bodies identified) Skin layer closure: Nylon, Interrupted, Size #-0 - enter number (4), Sutures - enter # (3) Other: Patient tolerated well, Tetanus UTD Complexity: Simple PD MEDICAL DECISION MAKING - ED course ED course: 25-year-old female with dorsal left wrist laceration. X-ray showed no foreign body wound was closed with 3 simple interrupted sutures. Patient reports she is unable to move any of her fingers or the wrist at all. Patient also reports th at she is unable to move at the elbow as well as the shoulder. This would be inconsistent with a acute tendon injury however we did get a CT scan of the left upper extremity showed a dorsal distal forearm location small amount of associated blood and no radial a foreign body. Patient was reexamined she does have subjective decreased sensation as well as movement. However on physical exam she reports she is weak in her shoulder as well as her elbow which would be inconsistent with acute distal forearm tendon injury. On reexamination prior to discharge she is able to move all of her fingers and extend at the wrist.Reviewing the patient's previous medical records she does have what appears to be a psychiatric component to her medical history. Departure - Departure Disposition: 01 Home, Self Care Clinical Impression: Laceration of left forearm Qualifiers: Encounter type: initial encounter Qualified Code(s): S51.812A - Laceration without foreign body of left forearm, initial encounter Condition: Stable Instructions: ED Laceration Ext Sutr Stap Tape Follow-Up: your, doctor [Other] - 07/23/20 Comments: Keep wound protected at all times. Apply topical antibiotic such as Neosporin 2 times daily. Please follow-up with a medical provider today for recheck.You should have your sutures removed in 10 days.
[2020-07-22] MEDS ORDERED: BACITRACIN ZINC OINT 1 PACKET TOP STA (23:39)
[2020-07-22] MEDS ORDERED: LIDOCAINE 1%-EPI 1:100000 20 ML MDV SUBQ STA (23:39)
[2020-07-23 03:20] VITALS: BP 122/68
--- NOTE | 2020-07-23 07:52 | XRAY Report ---
PROCEDURE: Forearm LT INDICATIONS: left forearm pain TECHNIQUE: 2 views of the forearm were acquired. COMPARISON: None. FINDINGS: Bones: No fractures or dislocations. No suspicious bony lesions. Soft tissues: No suspicious soft tissue calcifications or masses. Laceration involving the soft tiss ues of the dorsal margin of the distal left forearm. No radiodense foreign body. IMPRESSION: Distal forearm laceration. No radiodense foreign body. Reviewed by: Tatiana Fierro MD, PhD on 07/23/2020 7:51 AM PDT Approved by: Tatiana Fierro MD, PhD on 07/23/2020 7:51 AM PDT Station ID: [id number]
--- NOTE | 2020-07-23 08:32 | CT Report ---
PROCEDURE: UPPER EXTREMITY WO - LT INDICATIONS: laceration, left wrist drop TECHNIQUE: Noncontrast 3 mm axial sections acquired of the left upper extremity, with coronal and sagittal refor mats. COMPARISON: None. FINDINGS: Image quality: Excellent. Bones: Left forearm and wrist alignment is anatomic. There is no acute fracture or dislocation. No b kacy erosive changes or suspicious intraosseous lesion. Soft tissues: There is no significant elbow or wrist joint effusion. No gross muscle or tendon abnor mality is seen. Laceration involving the dorsal and lateral aspect of distal forearm is seen with und erlying subcutaneous fat stranding and mild soft tissue swelling. No radiopaque foreign body is seen. IMPRESSION: 1. Laceration involving dorsal and radial aspect of distal forearm. No radiopaque foreign body. No la rge drainable fluid collection is identified. No gross full-thickness muscle or tendon rupture. 2. No acute fracture or dislocation is seen in left forearm and left hand. No discrepancies from preliminary reading. Reviewed by: Félix Mcgee MD on 07/23/2020 8:30 AM PDT Approved by: Félix Mcgee MD on 07/23/2020 8:30 AM PDT Station ID: [id number]
== END 2020-07-23 03:20 | disposition home or self-care (01) ==
LOC: EDUNIT# → ED 21:08
DX: S61.512A Laceration without foreign body of left wrist, initial encounter (principal); W26.0XXA Contact with knife, initial encounter; Y93.G1 Activity, food preparation and clean up; Y92.000 Kitchen of unspecified non-institutional (private) residence as the place of occurrence of the external cause
CPT/HCPCS: 12001; 73090; 73200; 99282; 99283; A9270

== ENCOUNTER 2021-09-11 08:00 | Outpatient (CLI) | payer OTHER ==
[2021-09-11 16:32] LABS: BILIRUBIN,URINE NEGATIVE (NEGATIVE); GLUCOSE, URINE (UA) NEGATIVE (NEGATIVE); KETONES,URINE (UA) NEGATIVE (NEGATIVE); LEUKOCYTE ESTERASE, URINE NEGATIVE (NEGATIVE); NITRITE,URINE NEGATIVE (NEGATIVE); OCCULT BLOOD,URINE TRACE-INTA (NEGATIVE); PH,URINE 7.5 PH (5.0-7.5); PROTEIN,URINE NEGATIVE (NEGATIVE); UROBILINOGEN,URINE 0.2 (NORMAL) E.U./dL (NORMAL)
[2021-09-11 16:37] LABS: CLARITY,URINE CLEAR (CLEAR)
[2021-09-11 16:54] LABS: AMORPHOUS SEDIMENT,UR Few /LPF; BACTERIA,URINE Few /HPF (None Seen); RBC,URINE 0-5 /HPF (0-5); SQUAMOUS EPITHELIAL CELL,UR MOD Squamous (<= Few); WBC,URINE 0-3 /HPF (0-5)
== END 2021-09-11 23:59 | disposition home or self-care (01) ==
LOC: LAB 08:00
PROVIDERS: ATTEND Obstetrics & Gynecology
DX: Z32.01 Encounter for pregnancy test, result positive (principal)
CPT/HCPCS: 81001; 87086

== ENCOUNTER 2021-09-18 08:00 | Outpatient (CLI) | payer OTHER ==
[2021-09-18 18:29] LABS: BACTERIAL VAGINOSIS DNA NEGATIVE (NEGATIVE); CANDIDA GLABRATA DNA NEGATIVE (NEGATIVE); CANDIDA GROUP DNA NEGATIVE (NEGATIVE); CANDIDA KRUSEI DNA NEGATIVE (NEGATIVE); TRICHOMONAS VAGINALIS DNA NEGATIVE (NEGATIVE)
[2021-09-18 22:07] LABS: CHLAMYDIA TRACHOMATIS DNA NEGATIVE (NEGATIVE); NEISSERIA GONORRHOEAE DNA NEGATIVE (NEGATIVE); TRICHOMONAS VAGINALIS DNA NEGATIVE (NEGATIVE)
== END 2021-09-18 23:59 | disposition home or self-care (01) ==
LOC: LAB.WC 08:00
PROVIDERS: ATTEND Obstetrics & Gynecology
DX: N89.8 Other specified noninflammatory disorders of vagina (principal)
CPT/HCPCS: 87491; 87591; 87661; 87801

== ENCOUNTER 2021-09-18 18:44 | Outpatient (CLI) | payer OTHER ==
--- NOTE | 2021-09-19 00:05 | Ultrasound Report ---
PROCEDURE: OB First Trimester w/TV INDICATIONS: POSITIVE TEST OUTSIDE/PRIOR DATING DATA: Last menstrual period (LMP): Unknown. LMP-based estimated date of delivery (DIPAK): Known. First dating scan (date and location): 09/18/2021. Estimated date of delivery (DIPAK) from first dating scan: 04/22/2022. TECHNIQUE: Real-time scanning was performed of the fetus and maternal pelvic organs, with image documentation. Endovaginal scanning was also performed to better visualize the fetus and maternal ovaries. COMPARISON: None FINDINGS: Embryo: [place]-rump length measures 2.46 cm corresponding to 9 week 1 day gestation Heart rate: 176 bpm Measurement variability in dating: +/- 4 weeks by LMP, +/- 7 days by mean sac diameter (use before 6 weeks gestation if crown-rump length not able to be measured), +/- 5 days by crown-rump length (6-12 weeks gestation). Maternal organs: Ovaries unremarkable. Posterior fundal myometrial fibroid measures 2.9 x 2.7 x 2.5 cm. 1.6 cm corpus luteum cyst noted on the left. IMPRESSION: Single live intrauterine corresponds with a 9 week 1 day gestation. No perigestational blee d Incidental fundal uterine fibroid, 2.9 cm. Reviewed by: Tj Gore MD on 09/18/2021 11:03 PM SAMANTHA Approved by: Tj Gore MD on 09/18/2021 11:03 PM SAMANTHA Station ID: [id number]
== END 2021-09-18 18:45 | disposition home or self-care (01) ==
LOC: DI 18:44
PROVIDERS: ATTEND Obstetrics & Gynecology
DX: Z32.01 Encounter for pregnancy test, result positive (principal)

== ENCOUNTER 2021-09-24 15:57 | Outpatient (CLI) | payer OTHER ==
[2021-09-24 16:35] LABS: BASOPHILS % (AUTO) 0.5 %; EOSINOPHILS # (AUTO) 0.1 10^3/uL (0.0-0.7); EOSINOPHILS % (AUTO) 0.9 %; HCT - HEMATOCRIT 35.9 % (37.0-47.0); HGB - HEMOGLOBIN 12.6 g/dL (12.0-16.0); LYMPHOCYTES # (AUTO) 3.2 10^3/uL (1.5-3.5); LYMPHOCYTES % (AUTO) 36.9 %; MEAN CORPUSCULAR HEMOGLOBIN 30.7 pg (27.0-31.0); MEAN CORPUSCULAR HGB CONC 35.1 g/dL (32.0-36.0); MEAN CORPUSCULAR VOLUME 87.6 fL (81.0-99.0); MEAN PLATELET VOLUME 9.6 fL (7.9-10.8); MONOCYTES # (AUTO) 0.6 10^3/uL (0.0-1.0); MONOCYTES % (AUTO) 7.4 %; NEUTROPHILS # (AUTO) 4.7 10^3/uL (1.5-6.6); NEUTROPHILS % (AUTO) 54.1 %; PLT - PLATELET COUNT 367 10^3/uL (130-450); RED CELL DISTRIBUTION WIDTH 12.9 % (12.0-15.0); WHITE BLOOD COUNT 8.7 x10^3/uL (4.8-10.8)
[2021-09-25 13:21] LABS: HEPATITIS B SURFACE ANTIGEN NON-REACTIVE (NON-REACTIVE); HEPATITIS C ANTIBODY NON-REACTIVE (NON-REACTIVE)
[2021-09-25 15:30] LABS: HIV AG/AB 4TH GEN NON-REACTIVE (NON-REACTIVE)
== END 2021-09-24 15:58 | disposition home or self-care (01) ==
LOC: LAB 15:57
PROVIDERS: ATTEND Obstetrics & Gynecology
DX: Z36.89 Encounter for other specified antenatal screening (principal); Z32.01 Encounter for pregnancy test, result positive
CPT/HCPCS: 36415; 81001; 85025; 86592; 86762; 86787; 86803; 86850; 86900; 86901; 87086; 87340; 87389

== ENCOUNTER 2021-10-15 16:00 | Outpatient (CLI) | payer OTHER ==
[2021-10-16 21:21] LABS: BACTERIAL VAGINOSIS DNA NEGATIVE (NEGATIVE); CANDIDA GLABRATA DNA NEGATIVE (NEGATIVE); CANDIDA GROUP DNA NEGATIVE (NEGATIVE); CANDIDA KRUSEI DNA NEGATIVE (NEGATIVE); TRICHOMONAS VAGINALIS DNA NEGATIVE (NEGATIVE)
== END 2021-10-15 23:59 | disposition home or self-care (01) ==
LOC: LAB 16:00
PROVIDERS: ATTEND Obstetrics & Gynecology
DX: N89.8 Other specified noninflammatory disorders of vagina (principal)
CPT/HCPCS: 87661; 87801

== ENCOUNTER 2021-11-02 12:03 | Outpatient (CLI) | payer OTHER ==
[2021-11-02 13:08] LABS: ALBUMIN 3.7 g/dL (3.2-5.5); ALBUMIN/GLOBULIN RATIO 1.1 (1.0-2.2); BILIRUBIN,TOTAL 0.3 mg/dL (0.2-1.0); CALCIUM 9.3 mg/dL (8.5-10.3); CREATININE 0.4 mg/dL (0.4-1.0); POTASSIUM 3.5 mmol/L (3.5-5.0); TOTAL PROTEIN 7.2 g/dL (6.7-8.2)
== END 2021-11-02 12:04 | disposition home or self-care (01) ==
LOC: LAB 12:03
PROVIDERS: ATTEND Obstetrics & Gynecology
DX: M35.00 Sjogren syndrome, unspecified (principal); M06.9 Rheumatoid arthritis, unspecified
CPT/HCPCS: 36415; 80053; 81599; 85613; 85730; 86146; 86147; 86235

== ENCOUNTER 2021-11-08 16:15 | Outpatient (CLI) | payer OTHER ==
[2021-11-08 16:34] LABS: BASOPHILS # (AUTO) 0.1 10^3/uL (0.0-0.1); BASOPHILS % (AUTO) 0.7 %; EOSINOPHILS # (AUTO) 0.2 10^3/uL (0.0-0.7); EOSINOPHILS % (AUTO) 1.6 %; HCT - HEMATOCRIT 35.5 % (37.0-47.0); HGB - HEMOGLOBIN 12.5 g/dL (12.0-16.0); LYMPHOCYTES # (AUTO) 2.9 10^3/uL (1.5-3.5); LYMPHOCYTES % (AUTO) 26.8 %; MEAN CORPUSCULAR HEMOGLOBIN 31.3 pg (27.0-31.0); MEAN CORPUSCULAR HGB CONC 35.2 g/dL (32.0-36.0); MEAN CORPUSCULAR VOLUME 88.8 fL (81.0-99.0); MEAN PLATELET VOLUME 9.2 fL (7.9-10.8); MONOCYTES # (AUTO) 0.7 10^3/uL (0.0-1.0); MONOCYTES % (AUTO) 6.3 %; NEUTROPHILS # (AUTO) 6.8 10^3/uL (1.5-6.6); NEUTROPHILS % (AUTO) 64.2 %; PLT - PLATELET COUNT 343 10^3/uL (130-450); RED CELL DISTRIBUTION WIDTH 12.9 % (12.0-15.0); WHITE BLOOD COUNT 10.6 x10^3/uL (4.8-10.8)
[2021-11-08 16:44] LABS: ALBUMIN 3.7 g/dL (3.2-5.5); BILIRUBIN,TOTAL 0.7 mg/dL (0.2-1.0); CALCIUM 9.2 mg/dL (8.5-10.3); CREATININE 0.7 mg/dL (0.4-1.0); POTASSIUM 3.7 mmol/L (3.5-5.0); TOTAL PROTEIN 7.4 g/dL (6.7-8.2)
== END 2021-11-08 16:16 | disposition home or self-care (01) ==
LOC: LAB 16:15
PROVIDERS: ATTEND Internal Medicine
DX: Z79.899 Other long term (current) drug therapy (principal)
CPT/HCPCS: 36415; 80053; 85025

== ENCOUNTER 2021-12-03 13:58 | Outpatient (CLI) | payer OTHER ==
--- NOTE | 2021-12-04 13:50 | Ultrasound Report ---
PROCEDURE: OB Detailed Eval INDICATIONS: SUPERVISION FIRST OUTSIDE/PRIOR DATING DATA: Last menstrual period (LMP): On. LMP-based estimated date of delivery (DIPAK): Unknown. First dating scan (date and location): 09/18/2021. Estimated date of delivery (DIPAK) from first dating scan: 04/22/2022. The below data below was generated using the ultrasound DIPAK of 04/22/2022 TECHNIQUE: Real-time scanning was performed of the fetus, with image documentation and biometric measurements. COMPARISON: OB ultrasound 09/18/2021 FINDINGS: General: A single living intrauterine gestation is present. Presentation: Transverse Placenta: Placental position is posterior, without previa. Amniotic fluid index: 14.1 cm, within normal limits for gestational age. Largest pocket 4.5 cm heart rate: 140 beats per minute. Maternal cervical canal: 5.3 cm long; normal length is 2.5 cm or more. biometrics: Biparietal diameter: 4.7 cm 20 weeks 1 day Head circumference: 17.6 cm 20 weeks 1 day Abdominal circumference: 15.5 cm 20 weeks 5 days Femur length: 3.3 cm 20 weeks 1 day Estimated gestational age from initial scan: 20 weeks 0 days Composite gestational age from present scan: 20 weeks 2 days Estimated weight and percentile: 352 g 69th percentile Measurement variability in biometric dating: +/- 10 days from 12-20 weeks gestation, +/- 2 weeks from 20-30 weeks gestation, +/- 3 weeks at 30 weeks gestation or later. Anatomic survey: Neuro: Ventricles are normal at less than 10 mm. Cisterna magna is normal at 3-11 mm. Cerebellum i s normal in size and morphology. Nuchal skin fold: Normal at less than 6 mm between 14 and 20 weeks gestational age. Face: Nose and lips, facial profile are normal. Spine: No evidence for spina bifida. Heart: 4-chambered heart is within normal limits. However, ventricular outflow tracts are suboptimal ly visualized.. Diaphragm: Diaphragm is intact. Stomach: Left-sided stomach is present. Kidneys: No hydronephrosis. Normal is less than 5 mm in 2nd trimester, less than 7 mm in 3rd trimester. Cord: 3 vessel cord has orthotopic insertion. Bladder: Normal in size. Extremities: All 4 extremities are visualized. IMPRESSION: Single live intrauterine with appropriate interval growth now measuring 20 weeks 2 days com pared to 20 weeks 0 days from initial ultrasound. 2. Outflow tracts are suboptimally evaluated. Recommend short interval imaging follow-up for addition al evaluation. Reviewed by: Megan Canales MD on 12/04/2021 1:49 PM PST Approved by: Megan Canales MD on 12/04/2021 1:49 PM [facility] Station ID: [id number]
== END 2021-12-03 13:59 | disposition home or self-care (01) ==
LOC: DI 13:58
PROVIDERS: ATTEND Obstetrics & Gynecology
DX: Z34.02 Encounter for supervision of normal first pregnancy, second trimester (principal); Z36.89 Encounter for other specified antenatal screening

== ENCOUNTER 2022-01-16 11:27 | Outpatient (CLI) | payer OTHER ==
--- NOTE | 2022-01-16 13:57 | Ultrasound Report ---
PROCEDURE: OB F/U or Repeat INDICATIONS: SUPERVISION OF OUTSIDE/PRIOR DATING DATA: Last menstrual period (LMP): Unknown. LMP-based estimated date of delivery (DIPAK): Unknown. First dating scan (date and location): 09/18/2021. Estimated date of delivery (DIPAK) from first dating scan: 04/22/2022. The below data below was generated using the ultrasound DIPAK of 04/22/22 TECHNIQUE: Real-time scanning was performed of the fetus, with image documentation and biometric measurements. Endovaginal scanning: Not performed COMPARISON: 12/03/2021 FINDINGS: General: A single living intrauterine gestation is present. Presentation: Transverse with head to maternal right Placenta: Placental position is posterior, without previa. Amniotic fluid index: 17.8 cm, within normal limits for gestational age. heart rate: 148 beats per minute. Maternal cervical canal: 2.7 cm long; normal length is 2.5 cm or more. biometrics: Biparietal diameter: 6.8 cm, 27 weeks 2 days Head circumference: 24.5 cm, 26 weeks 4 days Abdominal circumference: 21.9 cm, 26 weeks 2 days Femur length: 4.7 cm, 25 weeks 4 days Estimated gestational age from initial scan: 26 weeks 3 days Composite gestational age from present scan: 26 weeks 2 days Estimated weight and percentile: 100 g, 33rd percentile Measurement variability in biometric dating: +/- 10 days from 12-20 weeks gestation, +/- 2 weeks from 20-30 weeks gestation, +/- 3 weeks at 30 weeks gestation or more. Other: Previous anatomy survey study did not delineate the pulmonary outflow tracts well. Attempted i maging of the pulmonary outflow tracts was again unsuccessful secondary to position. A normal f our-chamber view is noted. IMPRESSION: 1. Living intrauterine at the junction between the second and third trimester. 2. Pulmonary outflow tracts continue to be suboptimally evaluated. 3. Current ultrasound age is 1 day less than clinical age. Reviewed by: Paulino Ashby MD on 01/16/2022 12:56 PM [facility] Approved by: Paulino Ashby MD on 01/16/2022 12:56 PM [facility] Station ID: [id number]
== END 2022-01-16 11:28 | disposition home or self-care (01) ==
LOC: DI 11:27
PROVIDERS: ATTEND Obstetrics & Gynecology
DX: O09.92 Supervision of high risk pregnancy, unspecified, second trimester (principal); Z3A.26 26 weeks gestation of pregnancy

== ENCOUNTER 2022-02-26 16:41 | Outpatient (CLI) | payer OTHER ==
--- NOTE | 2022-02-26 18:29 | Ultrasound Report ---
PROCEDURE: OB Biophysical Profile INDICATIONS: SJOGRENS SYNDROME OUTSIDE/PRIOR DATING DATA: Last menstrual period (LMP): Unknown. First dating scan (date ): September 18, 2021. Estimated date of delivery (DIPAK) from first dating scan: April 22, 2022. TECHNIQUE: Real-time scanning was performed of the fetus, with image documentation and biometric rafal surements. Biophysical profile was also obtained. COMPARISON: Prior studies dating back to September 18, 2021. FINDINGS: General: A single living intrauterine gestation is present. Presentation: Vertex Placenta: Placental position is posterior, without previa. Amniotic fluid index: 14.5 cm, appropriate for gestational age. heart rate: 1. beats per minute. Maternal cervical canal: Not imaged. Biophysical profile: Tone: 2 points. Movement: 2 points. Respiration: 2 points. Largest pocket of fluid: 2 points. Umbilical artery Doppler: 4.1, 3.6, 2.4 IMPRESSION: 1. Live intrauterine gestation as detailed above with elevated S/D ratio. Reviewed by: Emile York MD on 02/26/2022 6:28 PM PDT Approved by: Emile York MD on 02/26/2022 6:28 PM PDT Station ID: [id number]
== END 2022-02-26 16:42 | disposition home or self-care (01) ==
LOC: DI 16:41
PROVIDERS: ATTEND Obstetrics & Gynecology
DX: O99.891 Other specified diseases and conditions complicating pregnancy (principal); M35.00 Sjogren syndrome, unspecified; O28.3 Abnormal ultrasonic finding on antenatal screening of mother; Z3A.00 Weeks of gestation of pregnancy not specified

== ENCOUNTER 2022-03-05 16:47 | Outpatient (CLI) | payer OTHER ==
--- NOTE | 2022-03-06 08:13 | Ultrasound Report ---
PROCEDURE: OB Biophysical Profile INDICATIONS: SJOGRENS SYNDROME OUTSIDE/PRIOR DATING DATA: Last menstrual period (LMP): Unknown. LMP-based estimated date of delivery (DIPAK): None. First dating scan (date and location): 09/18/2021. Estimated date of delivery (DIPAK) from first dating scan: 04/22/2022. TECHNIQUE: Real-time scanning was performed of the fetus, with image documentation and biometric rafal surements. Biophysical profile was also obtained. Endovaginal scanning: Not performed COMPARISON: 02/26/2022 FINDINGS: General: A single living intrauterine gestation is present. Presentation: Vertex Placenta: Placental position is posterior, without previa. Amniotic fluid index: 12.4 cm, normal for gestational age. heart rate: 152 beats per minute. Maternal cervical canal: Not visualized Estimated gestational age from initial scan: 33 week 1 day Composite gestational age from present scan: Not applicable Estimated weight and percentile: Not applicable Measurement variability in biometric dating: +/- 10 days from 12-20 weeks gestation, +/- 2 weeks from 20-30 weeks gestation, +/- 3 weeks at 30 weeks gestation or later. Biophysical profile: Tone: 2 points. Movement: 2 points. Respiration: 2 points. Largest pocket of fluid: 2 points. Umbilical artery Doppler: 3.3, 3.4, 3.9 IMPRESSION: Single live intrauterine consistent with a 33 week 1 day gestation Umbilical artery S/D ratios remain elevated Biophysical profile score 8 out of 8 Reviewed by: Tj Gore MD on 03/06/2022 7:12 AM [facility] Approved by: Tj Gore MD on 03/06/2022 7:12 AM [facility] Station ID: [id number]
== END 2022-03-05 16:48 | disposition home or self-care (01) ==
LOC: DI 16:47
PROVIDERS: ATTEND Obstetrics & Gynecology
DX: O99.891 Other specified diseases and conditions complicating pregnancy (principal); M35.00 Sjogren syndrome, unspecified; Z3A.33 33 weeks gestation of pregnancy

== ENCOUNTER 2022-03-05 17:45 | Outpatient (CLI) | payer OTHER ==
[2022-03-05 17:53] VITALS: BP 130/83
--- NOTE | 2022-03-05 19:42 | PROCEDURE REPORT ---
- HPI Diagnosis/Indication for NST: Other (Mixed connective tissue disorder) Current EDU 04/22/22 Gestation 33 Weeks and 1 Days 4 Para 0 Vital Signs Temperature 98.2 F 03/05/22 17:51 Heart Rate 92 03/05/22 17:51 Respiratory Rate 17 03/05/22 17:51 Blood Pressure 130/83 H 03/05/22 17:51 O2 Saturation 100 03/05/22 17:51 Temperature 98.1 F 03/05/22 17:53 Heart Rate 92 03/05/22 17:51 Respiratory Rate 17 03/05/22 17:51 Blood Pressure 130/83 H 03/05/22 17:51 O2 Saturation 100 03/05/22 17:51 - NST Procedure NST Procedure Start Date 03/05/22 Start Time 17:50 Stop Time 18:20 Vibroacoustic Stimulation Used No Patient States Movement Yes - Results and Plan Plan: Patient is a 26-year-old at 33 weeks 1 day gestation here for scheduled NST. NST Performed 03/05/22 NST Read 03/05/22 FHT: 135 bpm baseline, moderate variability, accelerations present, no decelerations [place]: quiescent Diagnosis 33 weeks gestation Mixed connective tissue disorder Continue with twice weekly NST.
== END 2022-03-05 18:35 | disposition home or self-care (01) ==
LOC: WFO 17:45 → FBP 17:46 → WFO 18:35
PROVIDERS: ATTEND Obstetrics & Gynecology
DX: O99.891 Other specified diseases and conditions complicating pregnancy (principal); M35.00 Sjogren syndrome, unspecified; Z3A.33 33 weeks gestation of pregnancy
CPT/HCPCS: 59025

== ENCOUNTER 2022-03-12 16:48 | Outpatient (CLI) | payer OTHER ==
--- NOTE | 2022-03-12 21:04 | Ultrasound Report ---
PROCEDURE: OB Biophysical Profile INDICATIONS: SJOGRENS SYNDROME OUTSIDE/PRIOR DATING DATA: Last menstrual period (LMP): Unknown. LMP-based estimated date of delivery (DIPAK): Unknown. First dating scan (date and location): 09/18/2021. Estimated date of delivery (DIPAK) from first dating scan: 04/22/2022. The below data below was generated using the ultrasound DIPAK of 04/22/2022 TECHNIQUE: Real-time scanning was performed of the fetus, with image documentation and biometric rafal surements. Biophysical profile was also obtained. COMPARISON: OB ultrasound 03/05/2022, 12/03/2021 FINDINGS: General: A single living intrauterine gestation is present. Presentation: Vertex Placenta: Placental position is posterior, without previa. Amniotic fluid index: 12.1 cm, within normal limits for gestational age. Largest pocket 4.0 cm heart rate: 132 beats per minute. Maternal cervical canal: Not visualized . biometrics: Estimated gestational age from initial scan: 34 weeks 1 day Biophysical profile: Tone: 2 points. Movement: 2 points. Respiration: 2 points. Largest pocket of fluid: 2 points. Umbilical artery Doppler: 2.7, 3.2, 3.5 IMPRESSION: Single live intrauterine with ultrasound gestational age of 34 weeks 1 day. SOLITARIO is within normal limits. BPP 8 out of 8. Reviewed by: Megan Canales MD on 03/12/2022 9:03 PM PDT Approved by: Megan Canales MD on 03/12/2022 9:03 PM PDT Station ID: [id number]
== END 2022-03-12 16:49 | disposition home or self-care (01) ==
LOC: DI 16:48
PROVIDERS: ATTEND Obstetrics & Gynecology
DX: O99.891 Other specified diseases and conditions complicating pregnancy (principal); Z3A.34 34 weeks gestation of pregnancy

== ENCOUNTER 2022-03-12 17:37 | Outpatient (CLI) | payer OTHER ==
--- NOTE | 2022-03-12 18:11 | PROCEDURE REPORT ---
- HPI Diagnosis/Indication for NST: Other (Sjogrens Syndrome/Mixed connective tissue disorder) - NST Procedure NST Procedure Start Time 17:50 Stop Time 18:20 - Results and Plan Findings/Impression: Plan: Patient is a 26-year-old at 34 weeks 1 day gestation here for scheduled NST. NST Performed 03/12/22 NST Read 03/12/22 FHT: 135 bpm baseline, moderate variability, accelerations present, no decelerations [place]: quiescent Diagnosis 34 weeks gestation Mixed connective tissue disorder Continue with twice weekly NST.
[2022-03-12 18:36] VITALS: BP 138/86
== END 2022-03-12 18:12 | disposition home or self-care (01) ==
LOC: WFO 17:37 → FBP 17:40 → WFO 18:12
PROVIDERS: ATTEND Obstetrics & Gynecology
DX: O99.891 Other specified diseases and conditions complicating pregnancy (principal); M35.00 Sjogren syndrome, unspecified; Z3A.34 34 weeks gestation of pregnancy
CPT/HCPCS: 59025

== ENCOUNTER 2022-03-19 15:55 | Outpatient (CLI) | payer OTHER ==
--- NOTE | 2022-03-19 17:55 | PROCEDURE REPORT ---
- HPI Diagnosis/Indication for NST: Other (Sjogren's Syndrome) Vital Signs Temperature 98.2 F 03/19/22 17:23 Heart Rate 66 03/19/22 17:23 Respiratory Rate 18 03/19/22 17:23 Blood Pressure 140/90 H 03/19/22 17:23 Temperature 98.2 F 03/19/22 17:23 Heart Rate 76 03/19/22 17:46 Respiratory Rate 18 03/19/22 17:46 Blood Pressure 156/92 H 03/19/22 17:46 O2 Saturation 100 03/19/22 17:46 - NST Procedure NST Procedure Start Time 17:46 Stop Time 18:10 - Results and Plan Plan: Patient is a 26-year-old at 35 weeks 1 day gestation here for scheduled NST. VS show blood pressures elevated in mild range. No PIH symptoms. No prior elevated blood pressures Sending CBC/CMP/P:C NST Performed 03/19/22 NST Read 03/19/22 FHT: 125 bpm baseline, moderate variability, accelerations present, no decelerations [place]: quiescent Diagnosis 35 weeks gestation Mixed connective tissue disorder Elevated blood pressures (not yet meeting criteria for GHTN as not more than 4 hrs apart) Continue with twice weekly NST.
[2022-03-19 18:03] LABS: BASOPHILS % (AUTO) 0.3 %; EOSINOPHILS # (AUTO) 0.1 10^3/uL (0.0-0.7); EOSINOPHILS % (AUTO) 0.9 %; HCT - HEMATOCRIT 39.7 % (37.0-47.0); HGB - HEMOGLOBIN 13.7 g/dL (12.0-16.0); LYMPHOCYTES # (AUTO) 3.2 10^3/uL (1.5-3.5); MEAN CORPUSCULAR HEMOGLOBIN 31.2 pg (27.0-31.0); MEAN CORPUSCULAR HGB CONC 34.5 g/dL (32.0-36.0); MEAN CORPUSCULAR VOLUME 90.4 fL (81.0-99.0); MONOCYTES # (AUTO) 0.5 10^3/uL (0.0-1.0); MONOCYTES % (AUTO) 5.7 %; NEUTROPHILS # (AUTO) 5.5 10^3/uL (1.5-6.6); NEUTROPHILS % (AUTO) 58.8 %; PLT - PLATELET COUNT 215 10^3/uL (130-450); RED BLOOD COUNT 4.39 10^6/uL (4.20-5.40); RED CELL DISTRIBUTION WIDTH 12.9 % (12.0-15.0); WHITE BLOOD COUNT 9.4 x10^3/uL (4.8-10.8)
[2022-03-19 18:15] LABS: ALBUMIN 3.2 g/dL (3.2-5.5); ALBUMIN/GLOBULIN RATIO 0.9 (1.0-2.2); BILIRUBIN,TOTAL 0.5 mg/dL (0.2-1.0); CALCIUM 9.1 mg/dL (8.5-10.3); CREATININE 0.5 mg/dL (0.4-1.0); POTASSIUM 3.8 mmol/L (3.5-5.0); TOTAL PROTEIN 6.8 g/dL (6.7-8.2)
[2022-03-19 18:40] LABS: CREATININE,URINE 37.8 mg/dL; TOTAL PROTEIN,URINE TIMED < 6 mg/dL
[2022-03-19 18:59] VITALS: BP 149/94
--- NOTE | 2022-03-19 21:09 | Ultrasound Report ---
PROCEDURE: OB Biophysical Profile INDICATIONS: SJOGRENS SYNDROME OUTSIDE/PRIOR DATING DATA: Last menstrual period (LMP): Not known. LMP-based estimated date of delivery (DIPAK): Not applicable. First dating scan (date and location): 09/18/2021. Estimated date of delivery (DIPAK) from first dating scan: 04/22/2022. The below data below was generated using the ultrasound DIPAK of 6 (20 to TECHNIQUE: Real-time scanning was performed of the fetus, with image documentation and biometric rafal surements. Biophysical profile was also obtained. Endovaginal scanning: Performed COMPARISON: 03/12/2022, 03/05/2022, 02/26/2022, 01/16/2022, 12/03/2021 and 09/18/2021. FINDINGS: General: A single living intrauterine gestation is present. Presentation: Vertex Placenta: Placental position is posterior, without previa. Amniotic fluid index: 12.1 cm, normal 5-24 cm. Largest pocket 4 cm. heart rate: 132 beats per minute. Maternal cervical canal: Not imaged. Estimated gestational age from initial scan: 34 weeks 1 day. Biophysical profile: Tone: 2 points. Movement: 2 points. Respiration: 2 points. Largest pocket of fluid: 2 points. IMPRESSION: 1.Single living intrauterine . 2. Biophysical profile score 8 out of 8. 3. SOLITARIO within normal limits. Reviewed by: Tatiana Fierro MD, PhD on 03/19/2022 9:07 PM PDT Approved by: Tatiana Fierro MD, PhD on 03/19/2022 9:07 PM PDT Station ID: [id number]
== END 2022-03-19 18:52 | disposition home or self-care (01) ==
LOC: DI 15:55 → FBP 17:05 → DI 18:52
PROVIDERS: ATTEND Obstetrics & Gynecology
DX: O99.891 Other specified diseases and conditions complicating pregnancy (principal); M35.00 Sjogren syndrome, unspecified; Z3A.34 34 weeks gestation of pregnancy
CPT/HCPCS: 36415; 59025; 80053; 82570; 84156; 85025; 99213

== ENCOUNTER 2022-03-22 14:57 | Outpatient (CLI) | payer OTHER ==
--- NOTE | 2022-03-22 17:00 | Ultrasound Report ---
PROCEDURE: OB F/U or Repeat INDICATIONS: SJOGRENS SYNDROME OUTSIDE/PRIOR DATING DATA: Last menstrual period (LMP): Unknown. LMP-based estimated date of delivery (DIPAK): Not applicable. First dating scan (date and location): 09/18/2021. Estimated date of delivery (DIPAK) from first dating scan: 04/22/2022. TECHNIQUE: Real-time scanning was performed of the fetus, with image documentation and biometric measurements. Endovaginal scanning: No COMPARISON: None. FINDINGS: General: A single living intrauterine gestation is present. Presentation: Vertex Placenta: Placental position is posterior, without previa. Amniotic fluid index: 10.4 cm heart rate: 131 beats per minute. biometrics: Biparietal diameter: 86 mm; 34 weeks 4 days Head circumference: 318 mm; 35 weeks 5 days Abdominal circumference: 314 mm; 35 weeks 2 days Femur length: 67 mm; 34 weeks 2 days Estimated gestational age from initial scan: 35 weeks 4 days Composite gestational age from present scan: 35 weeks 0 days Estimated weight and percentile: 2578 g, which is at the 34th percentile for gestational age Measurement variability in biometric dating: +/- 10 days from 12-20 weeks gestation, +/- 2 weeks from 20-30 weeks gestation, +/- 3 weeks at 30 weeks gestation or more. Other: Limited survey of anatomy includes normal chest/diaphragm, stomach/abdomen, bilateral re nal regions, and urinary bladder/pelvis. IMPRESSION: 1. Single living intrauterine gestation. Reviewed by: Robbi Portillo MD on 03/22/2022 4:58 PM PDT Approved by: Robbi Portillo MD on 03/22/2022 4:58 PM PDT Station ID: [id number]
== END 2022-03-22 14:58 | disposition home or self-care (01) ==
LOC: DI 14:57
PROVIDERS: ATTEND Obstetrics & Gynecology
DX: O99.891 Other specified diseases and conditions complicating pregnancy (principal); M35.00 Sjogren syndrome, unspecified; Z3A.35 35 weeks gestation of pregnancy

== ENCOUNTER 2022-03-25 17:40 | Outpatient (CLI) | payer OTHER ==
[2022-03-25 18:00] VITALS: BP 126/83
[2022-03-25 18:01] LABS: BILIRUBIN,URINE NEGATIVE (NEGATIVE); GLUCOSE, URINE (UA) NEGATIVE (NEGATIVE); KETONES,URINE (UA) NEGATIVE (NEGATIVE); LEUKOCYTE ESTERASE, URINE NEGATIVE (NEGATIVE); NITRITE,URINE NEGATIVE (NEGATIVE); OCCULT BLOOD,URINE NEGATIVE (NEGATIVE); PROTEIN,URINE NEGATIVE (NEGATIVE); UROBILINOGEN,URINE 0.2 (NORMAL) E.U./dL (NORMAL)
--- NOTE | 2022-03-25 18:05 | PROVIDER PROGRESS NOTE ---
- HPI Chief Complaint: Labor Current : Vital Signs Temperature 98.2 F 03/25/22 17:54 Heart Rate 93 03/25/22 17:54 Respiratory Rate 18 03/25/22 17:54 Blood Pressure 132/95 H 03/25/22 17:54 O2 Saturation 100 03/25/22 17:54 Temperature 98.2 F 03/25/22 18:00 Heart Rate 77 03/25/22 17:59 Respiratory Rate 18 03/25/22 17:54 Blood Pressure 126/83 H 03/25/22 17:59 O2 Saturation 100 03/25/22 17:54 - Procedures OB Procedure Performed: NST Diagnosis/Indication for NST: labor NST Procedure: NST Procedure Start Time 17:15 Stop Time 17:54 Service Date of procedure: 03/25/22 (Read 03/25/22) - Plan Plan: Patient is a 26-year-old -0-3-0 at 36 weeks 0 days gestation presenting to triage with abdominal cramping She has good movement, no leaking, no vaginal bleeding. She denies headache, right upper quadrant pain, changes in vision. All other symptoms negative except for HPI History: PROBLEMS: 12/24/21- [facility] report reviewed. 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 Recommendations- serial growth scans, stress dose steroids if remains on prednisone. Continue LDASA, surveillance Started at 32w, Delivery at 39 weeks . Rheumotologic disorder: Unclear to exact disease. Multiple diseases noted and taking medications for autoimmune disorder. APLAS and Sjogrens labs normal. Records received and scanned. Taking Prednisone PRN up to 5mg 2-3 times per week, Not currently taking sulfasalazine. Comanagement with [facility] and [facility] (Adele Arreola). LMP: unknown DIPAK by LMP: unknown Ultrasound on 09/18/21 at 9.1 wks DIPAK by US: 04/22/2022 O+/ Rubella immune VZV immune Genetic testing:NORMAL NIPT 11/16/2021 FAS: 12/03/2021 EFW 352g/69%tile; 3VC; posterior placenta; SOLITARIO WNL. Ventricular outflow tracts suboptimally visualized; follow-up ordered and scheduled 12/30/2021. USG done by [facility] 12/23- 4chambers and outflow tracts appear normal. Palate could not be adequately visualized, but no f/u recommended. F/U US 01/16- Could not visualize pulmonary outflow tracts. Glucola:116 Flu: 09/24/21 TDAP: 02/04/22 GBS: Next week. HSV:Denies history in self or partner Breast pump rx: gave insurance sheet MOD: 39 week IOL PP contraception:Considering NuvaRing, annovera, vs patch. PAP: 08/2020-normal per patient report Past medical history Mixed connective tissue disorder History of colon polyp GERD Fatty liver disease Borderline personality disorder Anxiety Past surgical history Laparoscopic cholecystectomy D&C Left tarsal tunnel release Family history Father: Diabetes Sister: Down syndrome Social history Denies tobacco, alcohol, drugs. Physical Exam Constitutional: alert, no acute distress, well hydrated, well developed, well nourished, appropriate dress. Skin: normal turgor, normal color. Head: atraumatic, normocephalic. Cardiovascular: RRR. Respiratory: no respiratory distress. Abdomen: Soft, nondistended, nontender. Spine: normal mobility. Neurologic: normal, sensation intact, motor intact. Psych: affect and mood appropriate, normal interaction, good eye contact. NST: 140 beats per minute baseline, moderate variability, accelerations present, no decelerations. Reactive NST [place]: Quiescent SVE: 0/0/-3 Laboratory Last Values Urine Color YELLOW 03/25/22 17:45 Urine Clarity CLEAR (CLEAR) 03/25/22 17:45 Urine pH 7.0 PH (5.0-7.5) 03/25/22 17:45 Ur Specific [place] 1.015 (1.002-1.030) 03/25/22 17:45 Urine Protein NEGATIVE mg/dL (NEGATIVE) 03/25/22 17:45 Urine Glucose (UA) NEGATIVE mg/dL (NEGATIVE) 03/25/22 17:45 Urine Ketones NEGATIVE mg/dL (NEGATIVE) 03/25/22 17:45 Urine Occult Blood NEGATIVE (NEGATIVE) 03/25/22 17:45 Urine Nitrite NEGATIVE (NEGATIVE) 03/25/22 17:45 Urine Bilirubin NEGATIVE (NEGATIVE) 03/25/22 17:45 Urine Urobilinogen 0.2 (NORMAL) E.U./dL (NORMAL) 03/25/22 17:45 Ur Leukocyte Esterase NEGATIVE (NEGATIVE) 03/25/22 17:45 Urine RBC None Seen /HPF (0-5) 03/25/22 17:45 Urine WBC 0-3 /HPF (0-5) 03/25/22 17:45 Ur Squamous Epith Cells RARE Squamous (<= Few) 05 17:45 Urine Bacteria None Seen /HPF (None Seen) 03/25/22 17:45 Assessment and plan 26-year-old -0-3-0 at 36 weeks 0 days gestation with abdominal cramping 1. Abdominal cramping -No sign of labor. -Cervix remains closed. No contractions seen on monitor -Non concerning UA. 2. 36 weeks gestation -Follow-up for routine care 3. Mixed connective tissue disorder -Patient continues on twice weekly prednisone and aspirin
[2022-03-25 18:16] LABS: BACTERIA,URINE None Seen /HPF (None Seen); CLARITY,URINE CLEAR (CLEAR); RBC,URINE None Seen /HPF (0-5); SQUAMOUS EPITHELIAL CELL,UR RARE Squamous (<= Few); WBC,URINE 0-3 /HPF (0-5)
--- NOTE | 2022-03-30 07:22 | PROVIDER PROGRESS NOTE ---
- HPI Current : Current EDU 04/22/22 Gestation 36 Weeks and 0 Days 4 Para 0 Vital Signs Temperature 98.2 F 03/25/22 17:54 Heart Rate 93 03/25/22 17:54 Respiratory Rate 18 03/25/22 17:54 Blood Pressure 132/95 H 03/25/22 17:54 O2 Saturation 100 03/25/22 17:54 Temperature 98.2 F 03/25/22 18:00 Heart Rate 77 03/25/22 17:59 Respiratory Rate 18 03/25/22 17:54 Blood Pressure 126/83 H 03/25/22 17:59 O2 Saturation 100 03/25/22 17:54 - Procedures NST Procedure: NST Procedure Start Date 03/25/22 Start Time 17:52 Stop Time 18:35 Vibroacoustic Stimulation Used Yes Patient States Movement Yes
== END 2022-03-25 18:52 | disposition home or self-care (01) ==
LOC: WFO 17:40 → FBP 17:41 → WFO 18:52
PROVIDERS: ATTEND Obstetrics & Gynecology
DX: O99.891 Other specified diseases and conditions complicating pregnancy (principal); R10.9 Unspecified abdominal pain; M35.1 Other overlap syndromes; Z3A.36 36 weeks gestation of pregnancy; O99.113 Other diseases of the blood and blood-forming organs and certain disorders involving the immune mechanism complicating pregnancy, third trimester; D89.89 Other specified disorders involving the immune mechanism, not elsewhere classified
CPT/HCPCS: 59025; 81001; 99213

== ENCOUNTER 2022-03-26 08:00 | Outpatient (CLI) | payer OTHER | END 2022-03-26 23:59 | disposition home or self-care (01) | LOC: LAB.R 08:00 | PROVIDERS: ATTEND Obstetrics & Gynecology | DX: Z36.85 Encounter for antenatal screening for Streptococcus B (principal) | CPT/HCPCS: 87797 ==

== ENCOUNTER 2022-03-26 16:06 | Outpatient (CLI) | payer OTHER ==
--- NOTE | 2022-03-26 17:03 | Ultrasound Report ---
PROCEDURE: OB Biophysical Profile INDICATIONS: SJOGRENS SYNDROME OUTSIDE/PRIOR DATING DATA: First dating scan (date and location): 09/18/2021. Estimated date of delivery (DIPAK) from first dating scan: 04/22/2022. The below data below was generated using the ultrasound DIPAK of 04/22/2022 TECHNIQUE: Real-time scanning was performed of the fetus, with image documentation. Biophysical pro file was also obtained. COMPARISON: Ultrasound 03/22/2022. FINDINGS: General: A single living intrauterine gestation is present. Presentation: Vertex Placenta: Placental position is posterior, without previa. Amniotic fluid index: 11 cm, normal for gestational age. Largest pocket 4.3 cm. heart rate: 152 beats per minute. Maternal cervical canal: Not visualized. Estimated gestational age from initial scan: 36 weeks 1 day Biophysical profile: Tone: 2 points. Movement: 2 points. Respiration: 2 points. Largest pocket of fluid: 2 points. Umbilical artery Doppler: 2.1, 2.8, 2.7. Preserved diastolic flow. IMPRESSION: 1. [place] living intrauterine at 36 weeks 1 day based on prior ultrasound. 2. Normal placenta and amniotic fluid. 3. Normal biophysical profile, score 8 out of 8. Umbilical artery Doppler is within normal limits. Reviewed by: Ricardo Hernandez MD on 03/26/2022 5:02 PM PDT Approved by: Ricardo Hernandez MD on 03/26/2022 5:02 PM PDT Station ID: [id number]
== END 2022-03-26 16:07 | disposition home or self-care (01) ==
LOC: DI 16:06
PROVIDERS: ATTEND Obstetrics & Gynecology
DX: O99.891 Other specified diseases and conditions complicating pregnancy (principal); M35.00 Sjogren syndrome, unspecified; Z3A.36 36 weeks gestation of pregnancy; Z36.85 Encounter for antenatal screening for Streptococcus B
CPT/HCPCS: 87797

== ENCOUNTER 2022-04-01 13:48 | Inpatient (IN) | payer OTHER ==
[2022-04-01] MEDS ORDERED: hydrALAZINE INJ 20 MG/ML VIAL IVP PRN ×2 (14:00)
[2022-04-01] MEDS ORDERED: LIDOCAINE-MPF 1% 30 ML VIAL ID PRN (14:00)
[2022-04-01] MEDS ORDERED: miSOPROStoL 200 MCG TABLET BC PRN (14:00)
[2022-04-01] MEDS ORDERED: fentaNYL 100 MCG/2 ML VIAL IVP PRN (14:00)
[2022-04-01] MEDS ORDERED: OXYTOCIN/SODIUM CHLORIDE 500 ML IV PRN (14:00)
[2022-04-01] MEDS ORDERED: METHYLERGONOVINE 0.2 MG/ML VIAL IM PRN (14:00)
[2022-04-01] MEDS ORDERED: miSOPROStoL 200 MCG TABLET PR PRN (14:00)
[2022-04-01] MEDS ORDERED: TERBUTALINE 1 MG/ML VIAL SUBQ PRN (14:00)
[2022-04-01] MEDS ORDERED: SODIUM CHLORIDE FLUSH 0.9% 10 ML SYRINGE IVP PRN (14:00)
[2022-04-01] MEDS ORDERED: TRANEXAMIC ACID IN NACL 1,000 MG/100 ML BAG IV PRN (14:00)
[2022-04-01] MEDS ORDERED: OXYTOCIN 10 UNIT/ML VIAL IM PRN (14:00)
[2022-04-01] MEDS ORDERED: CARBOPROST TROMETHAMINE 250 MCG/ML AMP IM PRN (14:00)
[2022-04-01] MEDS ORDERED: NIFEdipine 10 MG CAPSULE PO PRN (14:00)
[2022-04-01] MEDS ORDERED: LABETALOL 20 MG/4 ML SYRINGE IVP PRN ×2 (14:00)
[2022-04-01 14:22] LABS: BASOPHILS % (AUTO) 0.4 %; EOSINOPHILS # (AUTO) 0.1 10^3/uL (0.0-0.7); EOSINOPHILS % (AUTO) 0.6 %; HCT - HEMATOCRIT 43.4 % (37.0-47.0); HGB - HEMOGLOBIN 15.1 g/dL (12.0-16.0); LYMPHOCYTES # (AUTO) 2.8 10^3/uL (1.5-3.5); LYMPHOCYTES % (AUTO) 35.2 %; MEAN CORPUSCULAR HEMOGLOBIN 31.2 pg (27.0-31.0); MEAN CORPUSCULAR HGB CONC 34.8 g/dL (32.0-36.0); MEAN CORPUSCULAR VOLUME 89.7 fL (81.0-99.0); MEAN PLATELET VOLUME 11.1 fL (7.9-10.8); MONOCYTES # (AUTO) 0.4 10^3/uL (0.0-1.0); MONOCYTES % (AUTO) 4.7 %; NEUTROPHILS # (AUTO) 4.6 10^3/uL (1.5-6.6); NEUTROPHILS % (AUTO) 58.8 %; PLT - PLATELET COUNT 192 10^3/uL (130-450); RED BLOOD COUNT 4.84 10^6/uL (4.20-5.40); RED CELL DISTRIBUTION WIDTH 12.8 % (12.0-15.0); WHITE BLOOD COUNT 7.8 x10^3/uL (4.8-10.8)
[2022-04-01 14:43] LABS: CREATININE,URINE 15.3 mg/dL
[2022-04-01 14:44] LABS: TOTAL PROTEIN,URINE TIMED < 6 mg/dL
[2022-04-01 14:50] LABS: ALBUMIN 3.5 g/dL (3.2-5.5); ALBUMIN/GLOBULIN RATIO 0.9 (1.0-2.2); BILIRUBIN,TOTAL 0.5 mg/dL (0.2-1.0); CALCIUM 9.4 mg/dL (8.5-10.3); CREATININE 0.6 mg/dL (0.4-1.0); POTASSIUM 3.9 mmol/L (3.5-5.0); TOTAL PROTEIN 7.4 g/dL (6.7-8.2)
[2022-04-01] MEDS: miSOPROStoL 100 MCG TABLET BC SCH ×3 (14:52→22:55)
--- NOTE | 2022-04-01 16:04 | HISTORY & PHYSICAL EXAMINATION ---
Admit History - : 4 Parity: 0 : 3 Care: positive: [facility] Complications This : positive: induced HTN - Mother's Labs Mother's Blood Type: positive: O Mother's RH: positive: Positive Rubella Status: positive: Immune - Other Maternal History Other Maternal History: HPI: 26-year-old -0-3-0 at 37 weeks 0 days gestation by 9-week ultrasound presenting for induction of labor secondary to elevated blood pressures at term. She has good movement. Denies loss of fluid. Denies blurry vision or right upper quadrant pain. No vaginal bleeding. Denies nausea and vomiting. Denies urinary urgency or dysuria. She does say she had a headache since this morning, but is not take anything for this, and it is mild. All other symptoms reviewed and were negative except per HPI. Course 12/24/21- [facility] report reviewed. 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 Recommendations- serial growth scans, stress dose steroids if remains on prednisone. Continue LDASA, surveillance Started at 32w, Delivery at 39 weeks . Rheumotologic disorder: Unclear to exact disease. Multiple diseases noted and taking medications for autoimmune disorder. APLAS and Sjogrens labs normal. Records received and scanned. Taking Prednisone PRN up to 5mg 2-3 times per week, Not currently taking sulfasalazine. Comanagement with [facility] and [facility] (Adele Arreola). Preeclampsia: Likely with severe features. Will send to L&D for management. Plan for induction as she is 37 weeks. LMP: unknown DIPAK by LMP: unknown Ultrasound on 09/18/21 at 9.1 wks DIPAK by US: 04/22/2022 O+/ Rubella immune VZV immune Genetic testing:NORMAL NIPT 11/16/2021 FAS: 12/03/2021 EFW 352g/69%tile; 3VC; posterior placenta; SOLITARIO WNL. Ventricular outflow tracts suboptimally visualized; follow-up ordered and scheduled 12/30/2021. USG done by [facility] 12/23- 4chambers and outflow tracts appear normal. Palate could not be adequately visualized, but no f/u recommended. F/U US 01/16- Could not visualize pulmonary outflow tracts. Glucola:116 Flu: 09/24/21 TDAP: 3/24/22 GBS: Next week. HSV:Denies history in self or partner Breast pump rx: gave insurance sheet MOD: 39 week IOL PP contraception:Considering NuvaRing, annovera, vs patch. PAP: 08/2020-normal per patient report PMH Mixed connective tissue disorder: Questionable autoimmune disorder versus Sjogren's versus rheumatoid arthritis versus lupus GERD Borderline personality disorder Anxiety PSH Cholecystectomy D&C Left tarsal tunnel release. OB History -0-3-0 1. 03/2020: 6 weeks, spontaneous 2. 08/2020: 7.5 weeks, spontaneous . 03/2021, 7 weeks, D&C Social history Denies tobacco, alcohol, drugs Family History Father: Diabetes Sister: Down syndrome Allergies Fentanyl: Difficulty recovering after anesthesia. Medications vitamins Vitamin D Calcium Prednisone 5 mg 3 times weekly Physical exam: General: Alert, oriented, no acute distress Head: Normal cephalic atraumatic Eyes: PERRLA, extraocular motions intact. Respiratory: Normal rate of respiration. No accessory muscle use, normal respiratory effort. Cardiovascular: Regular rate and rhythm Abdomen: Gravid, nontender, nondistended Extremities: Normal range of motion Neuro: Oriented x3. Normal movements Psych: Appropriate mood and affect. Normal judgment and insight SVE: FHT: 130 beats per baseline, moderate variability, accelerations present, no decelerations. [place]: Irritable Plan 26-year-old -0-3-0 at 37 weeks 0 days gestation by 9-week ultrasound presenting for labor induction secondary to elevated blood pressures at term. 1. Gestational hypertension: -Admit for cervical ripening. Plan for misoprostol 25 mcg BC every 4 hours -Blood pressure elevated on arrival, but subsequently normalized. Will continue close monitoring for signs of preeclampsia -Labs not concerning for severe features 2. 37 weeks gestation 3. Mixed connective tissue disorder: -Following up with rheumatology -Intermittent dosing of prednisone, less than 5 mg daily, currently 2-3 times per week. This is unlikely enough to suppress her HPA axis, and we can likely avoid stress dose steroids. Discussed the risk and benefits of stress dose steroids. If she begins to show signs of depression, we can readdress this. 4. GBS positive: -Ampicillin in active labor or at time of rupture. Meds/Allgy - Home Medications Home Medications: Ambulatory Orders Medication Instructions Recorded Confirmed Vitamin [Trinatal Rx 1] 1 tab PO DAILYWM #10 tablet 04/01/20 Adalimumab [Humira] 40 mg SQ OAW 05/01/20 05/01/20 - Allergies Allergies/Adverse Reactions: Allergies Allergy/AdvReac Type Severity Reaction Status Date / Time fentanyl Allergy Unknown Verified 04/01/22 14:51 Physical - Abdominal Exam Vital Signs: Temp Pulse Resp BP Pulse Ox 98.1 F 04/01/22 14:15
[2022-04-01] MEDS: SODIUM CHLORIDE FLUSH 0.9% 10 ML SYRINGE IVP SCH (20:15)
[2022-04-02] MEDS: miSOPROStoL 100 MCG TABLET BC SCH ×4 (02:46→13:34)
[2022-04-02] MEDS: SODIUM CHLORIDE FLUSH 0.9% 10 ML SYRINGE IVP SCH (04:00)
[2022-04-02 04:21] LABS: BASOPHILS % (AUTO) 0.5 %; EOSINOPHILS # (AUTO) 0.1 10^3/uL (0.0-0.7); EOSINOPHILS % (AUTO) 1.4 %; HCT - HEMATOCRIT 37.2 % (37.0-47.0); LYMPHOCYTES # (AUTO) 3.1 10^3/uL (1.5-3.5); LYMPHOCYTES % (AUTO) 38.4 %; MEAN CORPUSCULAR HEMOGLOBIN 31.7 pg (27.0-31.0); MEAN CORPUSCULAR HGB CONC 34.9 g/dL (32.0-36.0); MEAN CORPUSCULAR VOLUME 90.7 fL (81.0-99.0); MONOCYTES # (AUTO) 0.6 10^3/uL (0.0-1.0); MONOCYTES % (AUTO) 7.5 %; NEUTROPHILS # (AUTO) 4.2 10^3/uL (1.5-6.6); PLT - PLATELET COUNT 164 10^3/uL (130-450); RED CELL DISTRIBUTION WIDTH 12.8 % (12.0-15.0); WHITE BLOOD COUNT 8.1 x10^3/uL (4.8-10.8)
[2022-04-02 04:33] LABS: ALBUMIN 2.8 g/dL (3.2-5.5); BILIRUBIN,TOTAL 0.4 mg/dL (0.2-1.0); CALCIUM 8.3 mg/dL (8.5-10.3); CREATININE 0.6 mg/dL (0.4-1.0); POTASSIUM 3.7 mmol/L (3.5-5.0); TOTAL PROTEIN 5.7 g/dL (6.7-8.2)
[2022-04-02] MEDS ORDERED: MAGNESIUM SULFATE 4 GRAM 4 GM/50 ML BAG IV ONE (08:35)
--- NOTE | 2022-04-02 08:38 | PROVIDER PROGRESS NOTE ---
Labor Progress Note - Uterine Monitoring Uterine Monitoring Mode: positive: External toco Contraction Frequency (min/apart): quiescent Contraction Intensity: positive: Mild Uterine Resting Tone: positive: Soft - Monitoring Monitor Mode: positive: External ultrasound Heart Rate Baseline: 130 Heart Rate Variability: positive: Moderate (6-25 bmp) Accelerations: positive: Present, 15x15 Decelerations: positive: None Strip Review: positive: Category I - Labor Progress Note Labor Progress Note/Additional Text: Patient doing well. Blood pressure controlled overnight, but now has had subsequent severely elevated blood pressures. Will start magnesium sulfate at this time. Plan to start labetalol IV for blood pressure control. Patient is getting labs every 12 hours, currently with a stable platelet, AST/ALT. Had no significant protein in her urine yesterday. Denies headache, vision changes, right upper quadrant pain at this time. We will continue to monitor for signs of worsening disease or magnesium toxicity.Currently has received 4 doses of misoprostol, will continue with current induction plan.
[2022-04-02] MEDS: LACTATED RINGERS 1,000 ML IV SCH ×2 (09:04→17:15)
[2022-04-02] MEDS: LABETALOL 20 MG/4 ML SYRINGE IVP PRN ×3 (09:14→19:04)
[2022-04-02] MEDS: MAGNESIUM SULFATE IN WATER 20 GM/500 ML IV.SOLN IV SCH ×2 (09:49→19:55)
--- NOTE | 2022-04-02 10:04 | ANESTHESIA ---
Pre-Anesthesia VS, & Labs - Diagnosis active labor - Procedure labor epidural Vital Signs: Temp Pulse Resp BP Pulse Ox 36.8 C 60 20 162/105 H 100 04/02/22 07:55 04/02/22 08:00 04/02/22 08:00 04/02/22 08:24 04/02/22 08:00 Height: 5 ft Weight (kg): 76.204 kg Body Mass Index: 32.8 BMI Classification: Obese - NPO >8 hours - Is Patient ?: Yes - Lab Results Current Lab Results: Laboratory Tests 04/02/22 04:16: Sodium 134 L, Potassium 3.7, Chloride 106, Carbon Dioxide 21, Anion Gap 7.0, BUN 12, Creatinine 0.6, Estimated GFR (MDRD) 121, Glucose 93, Calcium 8.3 L, Total Bilirubin 0.4, AST 21, ALT 18, Alkaline Phosphatase 117, Total Protein 5.7 L, Albumin 2.8 L, Globulin 2.9, Albumin/Globulin Ratio 1.0 04/02/22 04:16: WBC 8.1, RBC 4.10 L, Hgb 13.0, Hct 37.2, MCV 90.7, MCH 31.7 H, MCHC 34.9, RDW 12.8, Plt Count 164, MPV 11.0 H, Neut # (Auto) 4.2, Lymph # (Auto) 3.1, [place] # (Auto) 0.6, Eos # (Auto) 0.1, Baso # (Auto) 0.0, Absolute Nucleated RBC 0.00, Nucleated RBC % 0.0 04/01/22 14:08: Sodium 136, Potassium 3.9, Chloride 105, Carbon Dioxide 21, Anion Gap 10.0, BUN 10, Creatinine 0.6, Estimated GFR (MDRD) 121, Glucose 104 H, Calcium 9.4, Total Bilirubin 0.5, AST 26, ALT 23, Alkaline Phosphatase 142 H, Total Protein 7.4, Albumin 3.5, Globulin 3.9, Albumin/Globulin Ratio 0.9 L 04/01/22 14:08: WBC 7.8, RBC 4.84, Hgb 15.1, Hct 43.4, MCV 89.7, MCH 31.2 H, MCHC 34.8, RDW 12.8, Plt Count 192, MPV 11.1 H, Neut # (Auto) 4.6, Lymph # (Auto) 2.8, [place] # (Auto) 0.4, Eos # (Auto) 0.1, Baso # (Auto) 0.0, Absolute Nucleated RBC 0.00, Nucleated RBC % 0.0 04/01/22 14:08: Blood Type O POSITIVE, Antibody Screen NEGATIVE Lab results reviewed: Yes Fish Bones: 04/02/22 04:16 04/02/22 04:16 Home Medications and Allergies Active Medications Acetaminophen (Acetaminophen 500 Mg Tablet) 1,000 mg PO Q6HR PRN PRN Reason: Pain or Fever > 38C (100.4F) Carboprost Tromethamine (Carboprost Tromethamine 250 Mcg/Ml Amp) 250 mcg IM .ONCE PRN PRN Reason: Hemorrhage Hydralazine HCl (Hydralazine Inj 20 Mg/Ml Vial) 5 - 20 mg IVP Q20M PRN; Protocol PRN Reason: SBP> or= 160 OR DBP> or= 110 Hydralazine HCl (Hydralazine Inj 20 Mg/Ml Vial) 10 mg IVP .ONCE PRN; Protocol PRN Reason: SBP> or= 160 OR DBP> or= 110 Oxytocin/Sodium Chloride (Pitocin/Sodium Chloride) 500 mls @ 999 mls/hr IV PRN PRN; Protocol PRN Reason: POST- HEMORR PREVENTION Tranexamic Acid (Tranexamic 1,000 Mg/100ml-Nacl) 1,000 mg in 100 mls @ 600 mls/hr IV Q30M PRN PRN Reason: EBL >1200mL and within 3hr Lactated Ringer's (Lr) 1,000 mls @ 125 mls/hr IV .Q8H [facility] Last Admin: 04/02/22 09:04 Dose: 125 mls/hr Magnesium Sulfate (Magnesium Sulf 20 G/500 Ml Bag) 20 gm in 500 mls @ 50 mls/hr IV .Q10H [facility] Last Admin: 04/02/22 09:49 Dose: 50 mls/hr Labetalol HCl (Labetalol 20 Mg/4 Ml Syringe) 20 - 80 mg IVP Q10M PRN; Protocol PRN Reason: SBP> or= 160 OR DBP> or= 110 Labetalol HCl (Labetalol 20 Mg/4 Ml Syringe) 20 mg IVP .ONCE PRN; Protocol PRN Reason: SBP> or= 160 OR DBP> or= 110 Last Admin: 04/02/22 09:14 Dose: 20 mg Labetalol HCl (Labetalol 20 Mg/4 Ml Syringe) 20 - 40 mg IVP Q10M PRN; Protocol PRN Reason: SBP> or= 160 OR DBP> or= 110 Lidocaine HCl (Lidocaine-Mpf 1% 30 Ml Vial) 30 ml ID ONCE PRN PRN Reason: PERINEAL REPAIR Stop: 04/02/22 14:00 Methylergonovine Maleate (Methylergonovine 0.2 Mg/Ml Vial) 0.2 mg IM .ONCE PRN PRN Reason: Hemorrhage Misoprostol (Misoprostol 200 Mcg Tablet) 600 mcg BC .ONCE PRN PRN Reason: Hemorrhage Misoprostol (Misoprostol 200 Mcg Tablet) 800 mcg WA .ONCE PRN PRN Reason: Hemorrhage Misoprostol (Misoprostol 100 Mcg Tablet) 25 mcg BC Q4H [facility] Last Admin: 04/02/22 09:25 Dose: 25 mcg Nifedipine (Nifedipine 10 Mg Capsule) 10 - 20 mg PO Q20M PRN; Protocol PRN Reason: SBP> or= 160 OR DBP> or= 110 Oxytocin (Oxytocin 10 Unit/Ml Vial) 10 unit IM .ONCE PRN PRN Reason: Step One if no IV access. Sodium Chloride (Sodium Chloride Flush 0.9% 10 Ml Syringe) 10 ml IVP PRN PRN PRN Reason: NEEDED PER PROVIDER ORDERS Sodium Chloride (Sodium Chloride Flush 0.9% 10 Ml Syringe) 10 ml IVP Q8H [facility] Last Admin: 04/02/22 04:00 Dose: 10 ml Terbutaline Sulfate (Terbutaline 1 Mg/Ml Vial) 0.25 mg SUBQ .ONCE PRN PRN Reason: Tachystole Adalimumab [Humira] 40 mg SQ OAW 05/01/20 Allergies/Adverse Reactions: Allergies Allergy/AdvReac Type Severity Reaction Status Date / Time fentanyl Allergy Unknown Verified 04/01/22 14:51 Anes History & Medical History - Anesthetic History Anesthesia Complications: reports: No previous complications Family history of Anesthesia Complications: Denies Family history of Malignant Hyperthermia: Denies - Medical History Cardiovascular: reports: None Pulmonary: reports: None Gastrointestinal: reports: None Urinary: reports: None Neuro: reports: None Musculoskeletal: reports: Rheumatoid arthritis, Other Endocrine/Autoimmune: reports: Systemic lupus erythematosus Blood Disorders: reports: None Skin: reports: None Smoking Status: Never smoker - Surgical History General: reports: Cholecystectomy Orthopedic: reports: Other - Obstetrical History : 4 Parity: 0 Complications: reports: induced HTN Exam General: Alert, Oriented x3, Cooperative, No acute distress Dental: WNL Plan Anesthesia Type: Epidural Consent for Procedure(s) Verified and Reviewed: Yes Code Status: Attempt Resuscitation ASA classification: 2-Mild systemic disease Is this case an emergency?: No
[2022-04-02] MEDS: ACETAMINOPHEN 500 MG TABLET PO PRN (13:31)
[2022-04-02 17:06] LABS: BASOPHILS % (AUTO) 0.4 %; EOSINOPHILS % (AUTO) 0.4 %; HCT - HEMATOCRIT 41.4 % (37.0-47.0); HGB - HEMOGLOBIN 14.3 g/dL (12.0-16.0); LYMPHOCYTES # (AUTO) 2.3 10^3/uL (1.5-3.5); LYMPHOCYTES % (AUTO) 32.1 %; MEAN CORPUSCULAR HEMOGLOBIN 31.2 pg (27.0-31.0); MEAN CORPUSCULAR HGB CONC 34.5 g/dL (32.0-36.0); MEAN CORPUSCULAR VOLUME 90.4 fL (81.0-99.0); MEAN PLATELET VOLUME 11.3 fL (7.9-10.8); MONOCYTES # (AUTO) 0.5 10^3/uL (0.0-1.0); MONOCYTES % (AUTO) 6.6 %; NEUTROPHILS # (AUTO) 4.2 10^3/uL (1.5-6.6); NEUTROPHILS % (AUTO) 60.4 %; PLT - PLATELET COUNT 180 10^3/uL (130-450); RED BLOOD COUNT 4.58 10^6/uL (4.20-5.40); RED CELL DISTRIBUTION WIDTH 12.9 % (12.0-15.0)
[2022-04-02 17:15] LABS: ALBUMIN 3.1 g/dL (3.2-5.5); ALBUMIN/GLOBULIN RATIO 0.8 (1.0-2.2); BILIRUBIN,TOTAL 0.4 mg/dL (0.2-1.0); CALCIUM 7.9 mg/dL (8.5-10.3); CREATININE 0.7 mg/dL (0.4-1.0); POTASSIUM 3.5 mmol/L (3.5-5.0); TOTAL PROTEIN 6.8 g/dL (6.7-8.2)
--- NOTE | 2022-04-02 20:42 | PROVIDER PROGRESS NOTE ---
Labor Progress Note - Uterine Monitoring Uterine Monitoring Mode: positive: External toco Contraction Frequency (min/apart): 2-3 Contraction Intensity: positive: Moderate to strong Uterine Resting Tone: positive: Soft - Monitoring Monitor Mode: positive: External ultrasound Heart Rate Baseline: 140 Heart Rate Variability: positive: Moderate (6-25 bmp) Accelerations: positive: Present, 15x15 Decelerations: positive: None Strip Review: positive: Category I - Vaginal Exam Dilation (in cm): 2 Effacement (%): 50 Station: -3 Cervical Position: Midposition - Labor Progress Note Labor Progress Note/Additional Text: Patient had CRB placed at approximately 6:15 with 80ml/40ml. Tolerated well. Oxitocin for inductions currently. Strong contractions. Currently on birthing ball. Plan for amniotomy after balloon removal. Epidural at patient's request.
[2022-04-03] MEDS ORDERED: OXYTOCIN/SODIUM CHLORIDE 500 ML IV SCH (01:00)
[2022-04-03] MEDS: LACTATED RINGERS 1,000 ML IV SCH (01:49)
[2022-04-03] MEDS ORDERED: AMPICILLIN 2 GM in SODIUM CHLORIDE 0.9% MINIBAG 100 ML IV ONE (02:45)
--- NOTE | 2022-04-03 02:58 | PROVIDER PROGRESS NOTE ---
Labor Progress Note - Uterine Monitoring Uterine Monitoring Mode: positive: External toco Contraction Frequency (min/apart): Irregular Contraction Intensity: positive: Moderate Uterine Resting Tone: positive: Soft - Monitoring Monitor Mode: positive: External ultrasound Heart Rate Baseline: 125 Heart Rate Variability: positive: Minimal (0-5 bpm) Accelerations: positive: Absent Decelerations: positive: None Strip Review: positive: Category II - Vaginal Exam Dilation (in cm): 4 Effacement (%): 75 Station: -3 Cervical Position: Midposition - Labor Progress Note Labor Progress Note/Additional Text: Patient had spontaneous rupture of membranes at approximately 0110. CRB was subsequently removed and head was noted to be well engaged. Patient was noted to be 4 cm high, 75% effaced, -3 station. We have not been able to start oxytocin as she is category 2 tracing. She has minimal variability with periods of moderate variability. Length of time without accelerations, and then a few sporadic accelerations. Likely typical from her magnesium sulfate. Blood pressures been remain intermittently elevated, but no recent sustained severe range blood pressures. Plan on oxytocin after strip remains more reassuring. Ampicillin to start for GBS sepsis prophylaxis.
[2022-04-03] MEDS ORDERED: ePHEDrine 50 MG/ML VIAL IVP PRN (03:40)
[2022-04-03] MEDS ORDERED: NALBUPHINE 10 MG/ML AMP IVP PRN (03:40)
[2022-04-03] MEDS ORDERED: METOCLOPRAMIDE 10 MG/2 ML VIAL IVP PRN (03:40)
[2022-04-03] MEDS ORDERED: diphenhydrAMINE INJ 50 MG/ML VIAL IVP PRN (03:40)
[2022-04-03] MEDS ORDERED: NALOXONE 0.4 MG/ML VIAL IVP PRN ×3 (03:40→17:45)
[2022-04-03] MEDS ORDERED: ROPIVACAINE 0.2% 200 MG/100 ML BAG EP PRN ×2 (03:40→04:22)
[2022-04-03] MEDS ORDERED: BUPIVACAINE 0.25% PF 10 ML VIAL ONE (03:54)
[2022-04-03] MEDS: MAGNESIUM SULFATE IN WATER 20 GM/500 ML IV.SOLN IV SCH (05:16)
[2022-04-03 06:07] LABS: BASOPHILS % (AUTO) 0.3 %; EOSINOPHILS % (AUTO) 0.4 %; HCT - HEMATOCRIT 38.9 % (37.0-47.0); HGB - HEMOGLOBIN 13.2 g/dL (12.0-16.0); LYMPHOCYTES # (AUTO) 2.3 10^3/uL (1.5-3.5); LYMPHOCYTES % (AUTO) 22.7 %; MEAN CORPUSCULAR HEMOGLOBIN 30.9 pg (27.0-31.0); MEAN CORPUSCULAR HGB CONC 33.9 g/dL (32.0-36.0); MEAN CORPUSCULAR VOLUME 91.1 fL (81.0-99.0); MEAN PLATELET VOLUME 11.8 fL (7.9-10.8); MONOCYTES # (AUTO) 0.6 10^3/uL (0.0-1.0); MONOCYTES % (AUTO) 6.1 %; NEUTROPHILS % (AUTO) 70.2 %; PLT - PLATELET COUNT 174 10^3/uL (130-450); RED BLOOD COUNT 4.27 10^6/uL (4.20-5.40); RED CELL DISTRIBUTION WIDTH 12.9 % (12.0-15.0)
[2022-04-03 06:19] LABS: ALBUMIN 2.9 g/dL (3.2-5.5); ALBUMIN/GLOBULIN RATIO 0.9 (1.0-2.2); BILIRUBIN,TOTAL 0.4 mg/dL (0.2-1.0); CALCIUM 7.4 mg/dL (8.5-10.3); CREATININE 0.5 mg/dL (0.4-1.0); POTASSIUM 3.5 mmol/L (3.5-5.0); TOTAL PROTEIN 6.1 g/dL (6.7-8.2)
[2022-04-03] MEDS: AMPICILLIN 1 GM in SODIUM CHLORIDE 0.9% MINIBAG 100 ML IV SCH ×3 (06:55→14:59)
[2022-04-03] MEDS: ONDANSETRON 4 MG/2 ML VIAL IVP PRN ×2 (07:24→15:47)
[2022-04-03] MEDS: ACETAMINOPHEN 500 MG TABLET PO PRN (07:52)
--- NOTE | 2022-04-03 08:51 | PROVIDER PROGRESS NOTE ---
Labor Progress Note - Uterine Monitoring Contraction Frequency (min/apart): 4m Contraction Intensity: positive: Mild to moderate Uterine Resting Tone: positive: Soft - Monitoring Monitor Mode: positive: External ultrasound Heart Rate Baseline: 120s Heart Rate Variability: positive: Moderate (6-25 bmp) Accelerations: positive: Present, 15x15 Decelerations: positive: None Strip Review: positive: Category I - Vaginal Exam Dilation (in cm): 6 Effacement (%): 75 Station: -2 Cervical Position: Anterior - Labor Progress Note Labor Progress Note/Additional Text: 26yo at 37w admitted for gestational hypertension, treated with magnesium sulfate for occasional severe BP. Received doses of IV labetalol. S cheduled labetalol 300mg PO q8 and adjust prn. Obtain magnesium level. Continue to titrate Pitocin. SROM 0100, ~8h time of rupture. Continue to monitor, anticipate by this evening
[2022-04-03] MEDS: LABETALOL 100 MG TABLET PO SCH ×2 (09:09→22:17)
[2022-04-03] MEDS ORDERED: SODIUM CHLORIDE 0.9% 10 ML VIAL IVP ONE ×2 (13:47→16:51)
[2022-04-03] MEDS ORDERED: fentaNYL 100 MCG/2 ML VIAL ONE (13:47)
[2022-04-03] MEDS ORDERED: LIDOCAINE-PF 2% 10 ML AMP SUBQ ONE (13:48)
--- NOTE | 2022-04-03 13:48 | ANESTHESIA PROCEDURE NOTE ---
Anesthesia Epidural Template - Patient Report Patient Reports: positive: Inadequate control - Plan Plan: positive: Other (increased to 10ml q 50 mins with PCEA 6ml q 10mins,max dose 30ml per hour) - Other Comments Other Comments: Rates pain 6/10 mostly lower abdomen and back. Epidural dosed with 5ml of 2% lidocaine, 100mcg fentanyl (not allergic, SE) and 3ml of PF NS. Also changed rate of PIEB and added PCEA
[2022-04-03] MEDS ORDERED: diphenhydrAMINE INJ 50 MG/ML VIAL IVP ONE (14:00)
[2022-04-03] MEDS ORDERED: NIFEdipine ER 30 MG TABLET PO SCH (15:00)
--- NOTE | 2022-04-03 15:36 | PROVIDER PROGRESS NOTE ---
Labor Progress Note - Uterine Monitoring Uterine Monitoring Mode: positive: External toco Contraction Frequency (min/apart): q2-4 Contraction Intensity: positive: Mild to moderate Uterine Resting Tone: positive: Soft - Monitoring Monitor Mode: positive: External ultrasound Heart Rate Baseline: 130s Heart Rate Variability: positive: Moderate (6-25 bmp) Accelerations: positive: Present, 15x15 Decelerations: positive: None Strip Review: positive: Category I - Vaginal Exam Dilation (in cm): 7 Effacement (%): 75 Station: -2 Cervical Position: Midposition - Labor Progress Note Labor Progress Note/Additional Text: 26yo at 37.2w admitted for IOL for gestational hypertension with severe BP, treated with magnesium sulfate. Labetalol 300mg q8h ordered. Will add nifedipine 30mg CR qd now. No progress made >6h with adequate MVUs. Recommended section at this time for failure to progress. She discussed with her support team and accepts section at this time. Informed consent obtained.
[2022-04-03] MEDS ORDERED: CITRIC ACID/SODIUM CITRATE 15 ML UDC PO ONE (15:55)
[2022-04-03] MEDS ORDERED: MORPHINE 2 MG/ML CARPUJECT IVP PRN (15:59)
[2022-04-03] MEDS ORDERED: miSOPROStoL 200 MCG TABLET ONE (15:59)
[2022-04-03] MEDS ORDERED: ONDANSETRON 4 MG/2 ML VIAL IVP PRN (15:59)
[2022-04-03] MEDS ORDERED: ATROPINE ABBOJECT 1 MG/10 ML SYRINGE IVP PRN (15:59)
[2022-04-03] MEDS ORDERED: CARBOPROST TROMETHAMINE 250 MCG/ML AMP IM ONE (15:59)
[2022-04-03] MEDS ORDERED: HYDROmorphone 0.5 MG/0.5 ML SYRINGE IVP PRN (15:59)
[2022-04-03] MEDS ORDERED: METHYLERGONOVINE 0.2 MG/ML VIAL ONE (16:00)
[2022-04-03] MEDS ORDERED: LACTATED RINGERS 1,000 ML IV SCH ×2 (16:00→18:00)
[2022-04-03] MEDS ORDERED: LIDOCAINE MPF 2%-EPI 1:200000 20 ML VIAL ONE (16:02)
[2022-04-03] MEDS ORDERED: CEFAZOLIN SODIUM IN 0.9 % NACL 2 GM/50 ML BAG IV ONE (16:30)
[2022-04-03] MEDS ORDERED: AZITHROMYCIN INJ 500 MG in SODIUM CHLORIDE 0.9% 250 ML IV ONE (16:30)
[2022-04-03] MEDS ORDERED: ceFAZolin 1 GM VIAL ONE (16:50)
[2022-04-03] MEDS ORDERED: MORPHINE PF 5 MG/10 ML VIAL ONE (16:57)
[2022-04-03] MEDS ORDERED: hydrALAZINE INJ 20 MG/ML VIAL IVP PRN ×2 (17:45)
[2022-04-03] MEDS ORDERED: LABETALOL 20 MG/4 ML SYRINGE IVP PRN ×3 (17:45)
[2022-04-03] MEDS ORDERED: OXYTOCIN/SODIUM CHLORIDE 500 ML IV PRN (17:45)
[2022-04-03] MEDS ORDERED: oxyCODONE 5 MG TABLET PO PRN (17:45)
[2022-04-03] MEDS ORDERED: NIFEdipine 10 MG CAPSULE PO PRN (17:45)
[2022-04-03] MEDS ORDERED: LACTATED RINGERS 400 ML IV ONE (17:48)
[2022-04-03] MEDS: KETOROLAC 30 MG/ML VIAL IVP SCH ×2 (18:00→23:53)
[2022-04-03] MEDS ORDERED: ACETAMINOPHEN 500 MG TABLET PO SCH (18:00)
--- NOTE | 2022-04-03 18:17 | ANESTHESIA POST OP EVALUATION ---
Anesthesia Post Eval - Post Anesthesia Eval Vitals: Last Vital Signs Temp 36.9 C 04/03/22 18:11 Pulse 77 04/03/22 18:11 Resp 14 04/03/22 18:11 BP 107/64 04/03/22 18:11 Pulse Ox 98 04/03/22 18:11 CV Function Including HR & BP: Stable Pain Control: Satisfactory Nausea & Vomiting: Negative Mental Status: Baseline Respiratory Status: Airway Patent Hydration Status: Satisfactory Anesthesia Complications: None
[2022-04-03] MEDS ORDERED: DOCUSATE SODIUM 100 MG CAPSULE PO SCH (21:00)
--- NOTE | 2022-04-03 21:37 | DELIVERY NOTE ---
Delivery Note - Labor Labor: positive: Augmented by ARM, Augmented by oxytocin - Infant Delivery Method Delivery Method: positive: Primary - Cervical Ripening Method Cervical Ripening Method: positive: Balloon device, Misoprostil - Presentation Presentation: positive: Vertex - Nuchal Cord Nuchal Cord: positive: Present (Nuchal x1 reduced) - Amniotic Fluid Description Amniotic Fluid Description: positive: Clear - [place] : positive: Suctioned, Stimulated, Warmed, Warmer used - Cord Cord: positive: 3 vessels - Placenta Placenta: positive: Expressed - Estimated Blood Loss Estimated Blood Loss (in cc): 600 - Post Delivery Events Post Delivery Events: positive: No post delivery events - Delivery Comments (Free Text/Narrative) Delivery Comments (Free Text/Narrative): Epidural anaesthetic not found to be adequate and so spinal was placed. Perez catheter in place. Patient was prepped and draped in the usual sterile fashion in the supine position with a leftward tilt. A Pfannensteil incision was made. The incision was carried down to the fascia with sharp dissection. The fascia was incised transversely and dissected off the rectus muscle using sharp dissection. Electrocautery was used for hemostasis. The peritoneum was opened taking care not to injure the bladder. The vesicouterine peritoneum was dissected off the lower uterine segment. The lower segment was assessed and a low transverse incision was made. The uterine incision was extended bluntly. The fetus was presenting as a vertex. The head was delivered without difficulty and the rest of the body followed easily. After one minute of delayed cord clamping, the cord was clamped twice and cut and the baby transferred to the warmer, awaiting the pediatric staff. Cord blood obtained. The placenta was then delivered with assistance. The uterus was explored and was empty of all tissue. The uterus was exteriorized for better visualization. The uterine incision was then closed in two layers of 0-Vicryl suture. The first layer was locking and the second was imbricating. One figur e-of-eight suture was required for good hemostasis. Tubes and ovaries were examined and appeared normal. Fascia was closed with 0-Vicryl in a running unlocked fashion. Subcutaneous layer closed with 2-0 chromic. Skin reapproximated with 4-0 monocryl subbcuticular suture. At the end of the procedure all sponges, instruments, and sharps were counted and correct. Estimated blood loss was 600cc. The patient and baby were taken to the recovery in stable condition.
[2022-04-04] MEDS: LABETALOL 100 MG TABLET PO SCH (06:08)
[2022-04-04] MEDS: KETOROLAC 30 MG/ML VIAL IVP SCH ×2 (06:08→13:35)
[2022-04-04 07:40] LABS: HCT - HEMATOCRIT 21.7 % (37.0-47.0); HGB - HEMOGLOBIN 7.4 g/dL (12.0-16.0); MEAN CORPUSCULAR HEMOGLOBIN 31.6 pg (27.0-31.0); MEAN CORPUSCULAR HGB CONC 34.1 g/dL (32.0-36.0); MEAN CORPUSCULAR VOLUME 92.7 fL (81.0-99.0); MEAN PLATELET VOLUME 11.1 fL (7.9-10.8); RED BLOOD COUNT 2.34 10^6/uL (4.20-5.40); RED CELL DISTRIBUTION WIDTH 13.3 % (12.0-15.0); WHITE BLOOD COUNT 13.2 x10^3/uL (4.8-10.8)
[2022-04-04 07:58] LABS: ALBUMIN 2.3 g/dL (3.2-5.5); ALBUMIN/GLOBULIN RATIO 0.9 (1.0-2.2); BILIRUBIN,TOTAL 0.4 mg/dL (0.2-1.0); CALCIUM 7.7 mg/dL (8.5-10.3); CREATININE 0.8 mg/dL (0.4-1.0); POTASSIUM 4.5 mmol/L (3.5-5.0); TOTAL PROTEIN 4.8 g/dL (6.7-8.2)
--- NOTE | 2022-04-04 12:07 | PROVIDER PROGRESS NOTE ---
Subjective - Prog Note Date Prog Note Date: 04/04/22 - Subjective Pt reports feeling: Improved Subjective: Comfortable. Appropriate lochia. Ambulating. Perez removed, has yet to void. Tolerating regular diet. . Mood is good. Denies headache, lightheadedness, visual changes, SOB. Objective - Vital Signs/Intake & Output Reviewed Vital Signs: Yes Vital Signs: Vital Signs x48h Temp Pulse Resp BP Pulse Ox 04/04/22 10:05 71 16 114/61 100 04/04/22 09:10 98.4 F 76 16 99/54 L 97 04/04/22 05:55 99.1 F 77 16 111/70 98 Intake & Output: Intake & Output 04/01/22 04/02/22 04/03/22 04/04/22 23:59 23:59 23:59 23:59 Intake Total 500 2150 4234.801 2665 Output Total 1250 4850 2545 1000 Balance -750 -2700 8104.832 6864 - Objective General Appearance: positive: No acute distress Eyes Bilateral: positive: Normal inspection Respiratory: positive: No respiratory distress Cardiovascular: positive: Regular rate & rhythm Abdomen: positive: Other (soft, appropriately tender, dressing c/d/i (area demarcated but stable)) Extremities: positive: Non-tender (minimal edema) Neurologic/Psychiatric: positive: Oriented x3 - Lab Results Fish Bones: 04/04/22 07:16 04/04/22 07:16 Other Labs: Lab Results x24hrs 04/04/22 04/04/22 Range/Units 07:16 07:16 WBC 13.2 H (4.8-10.8) x10^3/uL RBC 2.34 L (4.20-5.40) 10^6/uL Hgb 7.4 L (12.0-16.0) g/dL Hct 21.7 L (37.0-47.0) % MCV 92.7 (81.0-99.0) fL MCH 31.6 H (27.0-31.0) pg MCHC 34.1 (32.0-36.0) g/dL RDW 13.3 (12.0-15.0) % Plt Count 145 (130-450) 10^3/uL MPV 11.1 H (7.9-10.8) fL Sodium 130 L (135-145) mmol/L Potassium 4.5 (3.5-5.0) mmol/L Chloride 102 (101-111) mmol/L Carbon Dioxide 21 (21-32) mmol/L Anion Gap 7.0 (6-13) BUN 16 (6-20) mg/dL Creatinine 0.8 (0.4-1.0) mg/dL Estimated GFR (MDRD) 87 L (>89) Glucose 103 H (70-100) mg/dL Calcium 7.7 L (8.5-10.3) mg/dL Total Bilirubin 0.4 (0.2-1.0) mg/dL AST 21 (10-42) IU/L ALT 14 (10-60) IU/L Alkaline Phosphatase 81 (42-121) IU/L Total Protein 4.8 L (6.7-8.2) g/dL Albumin 2.3 L (3.2-5.5) g/dL Globulin 2.5 (2.1-4.2) g/dL Albumin/Globulin Ratio 0.9 L (1.0-2.2) Assessment/Plan - Problem List (1) Gestational hypertension w/o significant proteinuria in 3rd trimester Impression: 26yo s/p PCD 04/03 for failure to progress following IOL for gestational hypertension, with severe range BP - S/p magnesium sulfate - GHTN controlled. Continue labetalol 300mg q8h, will decrease prn. Discontinue nifedipine now. - Acute blood loss anemia, postoperative. Oral iron BID. Continue vitamins . - Repeat labs in am. - Anticipate discharge tomorrow or following day.
[2022-04-04] MEDS ORDERED: oxyCODONE 5 MG TABLET PO PRN (17:12)
[2022-04-04] MEDS: PRENATAL VITAMIN TABLET PO SCH (17:34)
[2022-04-04] MEDS: FERROUS SULFATE 325 MG TABLET PO SCH (17:35)
[2022-04-04] MEDS ORDERED: IBUPROFEN 600 MG TABLET PO SCH (18:00)
[2022-04-04] MEDS: SIMETHICONE CHEW 80 MG TABLET PO SCH (18:38)
[2022-04-04] MEDS: IBUPROFEN 800 MG TABLET PO SCH (18:38)
[2022-04-04] MEDS: ACETAMINOPHEN 500 MG TABLET PO SCH (18:38)
[2022-04-04] MEDS: DOCUSATE SODIUM 100 MG CAPSULE PO SCH (20:43)
[2022-04-05] MEDS: IBUPROFEN 800 MG TABLET PO SCH ×3 (01:52→17:52)
[2022-04-05] MEDS: ACETAMINOPHEN 500 MG TABLET PO SCH ×3 (01:52→17:52)
[2022-04-05 05:24] LABS: HCT - HEMATOCRIT 21.6 % (37.0-47.0); HGB - HEMOGLOBIN 7.1 g/dL (12.0-16.0); MEAN CORPUSCULAR HEMOGLOBIN 31.7 pg (27.0-31.0); MEAN CORPUSCULAR HGB CONC 32.9 g/dL (32.0-36.0); MEAN CORPUSCULAR VOLUME 96.4 fL (81.0-99.0); MEAN PLATELET VOLUME 10.3 fL (7.9-10.8); RED BLOOD COUNT 2.24 10^6/uL (4.20-5.40); RED CELL DISTRIBUTION WIDTH 13.5 % (12.0-15.0); WHITE BLOOD COUNT 10.9 x10^3/uL (4.8-10.8)
[2022-04-05 05:36] LABS: ALBUMIN 2.6 g/dL (3.2-5.5); ALBUMIN/GLOBULIN RATIO 0.9 (1.0-2.2); BILIRUBIN,TOTAL 0.2 mg/dL (0.2-1.0); CALCIUM 8.4 mg/dL (8.5-10.3); CREATININE 0.5 mg/dL (0.4-1.0); POTASSIUM 4.2 mmol/L (3.5-5.0); TOTAL PROTEIN 5.6 g/dL (6.7-8.2)
[2022-04-05] MEDS: SIMETHICONE CHEW 80 MG TABLET PO SCH ×6 (09:46→20:21)
[2022-04-05] MEDS: DOCUSATE SODIUM 100 MG CAPSULE PO SCH ×2 (09:46→20:18)
[2022-04-05] MEDS: FERROUS SULFATE 325 MG TABLET PO SCH ×2 (09:47→17:52)
--- NOTE | 2022-04-05 10:41 | PROVIDER PROGRESS NOTE ---
Subjective - Prog Note Date Prog Note Date: 04/05/22 - Subjective Pt reports feeling: Improved Subjective: Comfortable, taking ibuprofen and acetaminophen. Appropriate lochia. Ambulating. Voiding. Passing flatus. Tolerating regular diet and eating more now. well. Mood is good. Denies headache, visual changes, shortness of breath. Objective - Vital Signs/Intake & Output Reviewed Vital Signs: Yes Vital Signs: Vital Signs x48h Temp Pulse Resp BP Pulse Ox 04/05/22 04:00 99.1 F 74 16 129/64 99 Intake & Output: Intake & Output 04/02/22 04/03/22 04/04/22 04/05/22 23:59 23:59 23:59 23:59 Intake Total 2150 4234.801 2665 Output Total 4850 2545 2100 Balance -2700 1689.801 565 - Objective General Appearance: positive: No acute distress Respiratory: positive: No respiratory distress Cardiovascular: positive: Other (Regular rate) Abdomen: positive: Other (dressing c/d/i, soft, appropriately tender) Extremities: positive: Non-tender Neurologic/Psychiatric: positive: Oriented x3 - Lab Results Fish Bones: 04/05/22 05:15 04/05/22 05:15 Other Labs: Lab Results x24hrs 04/05/22 04/05/22 Range/Units 05:15 05:15 WBC 10.9 H (4.8-10.8) x10^3/uL RBC 2.24 L (4.20-5.40) 10^6/uL Hgb 7.1 L (12.0-16.0) g/dL Hct 21.6 L (37.0-47.0) % MCV 96.4 (81.0-99.0) fL MCH 31.7 H (27.0-31.0) pg MCHC 32.9 (32.0-36.0) g/dL RDW 13.5 (12.0-15.0) % Plt Count 161 (130-450) 10^3/uL MPV 10.3 (7.9-10.8) fL Sodium 140 (135-145) mmol/L Potassium 4.2 (3.5-5.0) mmol/L Chloride 109 (101-111) mmol/L Carbon Dioxide 25 (21-32) mmol/L Anion Gap 6.0 (6-13) BUN 12 (6-20) mg/dL Creatinine 0.5 (0.4-1.0) mg/dL Estimated GFR (MDRD) 149 (>89) Glucose 86 (70-100) mg/dL Calcium 8.4 L (8.5-10.3) mg/dL Total Bilirubin 0.2 (0.2-1.0) mg/dL AST 47 H (10-42) IU/L ALT 24 (10-60) IU/L Alkaline Phosphatase 84 (42-121) IU/L Total Protein 5.6 L (6.7-8.2) g/dL Albumin 2.6 L (3.2-5.5) g/dL Globulin 3.0 (2.1-4.2) g/dL Albumin/Globulin Ratio 0.9 L (1.0-2.2) Assessment/Plan - Problem List (1) Gestational hypertension w/o significant proteinuria in 3rd trimester Impression: S/p magnesium sulfate labetalol discontinued as BP improved, continue to monitor (2) 37 weeks gestation of Impression: out of nursery, saline lock in place still (3) Single live Impression: Continue /postoperative care, recovering appropriately Anticipate discharge tomorrow (4) Failure to progress in labor Impression: S/p uncomplicated PCD 04/03 (5) Acute blood loss as cause of postoperative anemia Impression: Continue oral iron, asymptomatic
[2022-04-05] MEDS: PRENATAL VITAMIN TABLET PO SCH (17:52)
[2022-04-06] MEDS: IBUPROFEN 800 MG TABLET PO SCH ×3 (01:50→17:40)
[2022-04-06] MEDS: ACETAMINOPHEN 500 MG TABLET PO SCH ×3 (01:50→17:40)
--- NOTE | 2022-04-06 08:06 | PROVIDER PROGRESS NOTE ---
Subjective - Prog Note Date Prog Note Date: 04/06/22 - Subjective Pt reports feeling: Improved Subjective: Comfortable. Appropriate lochia. Ambulating. Voiding. Tolerating regular diet. well. Mood is good. Denies headache, visual changes. Objective - Vital Signs/Intake & Output Reviewed Vital Signs: Yes Intake & Output: Intake & Output 04/03/22 04/04/22 04/05/22 04/06/22 23:59 23:59 23:59 23:59 Intake Total 4234.801 2665 Output Total 2545 2100 Balance 1689.801 565 - Objective General Appearance: positive: No acute distress Respiratory: positive: No respiratory distress Cardiovascular: positive: Other (Regular rate) Abdomen: positive: Other (Dressing removed. Incision c/d/i) Extremities: positive: Non-tender, No pedal edema Neurologic/Psychiatric: positive: Oriented x3 - Lab Results Fish Bones: 04/05/22 05:15 04/05/22 05:15 Assessment/Plan - Problem List (1) Gestational hypertension w/o significant proteinuria in 3rd trimester Impression: S/p magnesium sulfate Labetalol and nifedipine was discontinued as BP was low. Now PPD#3, BP increased which can be expected. Plan to start labetalol if BP increases. Continue to monitor today and will keep admitted. CBC and CMP ordered. (2) 37 weeks gestation of Impression: still admitted with IV. (3) Single live Impression: Continue /postoperative care. Discharge tomorrow pending BP monitoring and labs. (4) Failure to progress in labor Impression: S/p uncomplicated PCD 04/03 (5) Acute blood loss as cause of postoperative anemia Impression: Continue oral iron, asymptomatic.
[2022-04-06 08:24] LABS: HCT - HEMATOCRIT 22.1 % (37.0-47.0); HGB - HEMOGLOBIN 7.3 g/dL (12.0-16.0); MEAN CORPUSCULAR HEMOGLOBIN 31.7 pg (27.0-31.0); MEAN CORPUSCULAR VOLUME 96.1 fL (81.0-99.0); MEAN PLATELET VOLUME 9.6 fL (7.9-10.8); RED BLOOD COUNT 2.3 10^6/uL (4.20-5.40); RED CELL DISTRIBUTION WIDTH 13.5 % (12.0-15.0); WHITE BLOOD COUNT 9.7 x10^3/uL (4.8-10.8)
[2022-04-06 08:42] LABS: ALBUMIN 2.7 g/dL (3.2-5.5); ALBUMIN/GLOBULIN RATIO 0.8 (1.0-2.2); BILIRUBIN,TOTAL 0.6 mg/dL (0.2-1.0); CALCIUM 8.6 mg/dL (8.5-10.3); CREATININE 0.6 mg/dL (0.4-1.0); POTASSIUM 4.1 mmol/L (3.5-5.0)
[2022-04-06] MEDS: SIMETHICONE CHEW 80 MG TABLET PO SCH ×3 (09:56→17:40)
[2022-04-06] MEDS: FERROUS SULFATE 325 MG TABLET PO SCH ×2 (09:56→17:40)
[2022-04-06] MEDS: DOCUSATE SODIUM 100 MG CAPSULE PO SCH (09:56)
[2022-04-06] MEDS ORDERED: MAGNESIUM SULFATE 4 GRAM 4 GM/50 ML BAG IV ONE ×2 (10:24→10:25)
[2022-04-06] MEDS ORDERED: LACTATED RINGERS 1,000 ML ONE (10:43)
[2022-04-06] MEDS ORDERED: LACTATED RINGERS 1,000 ML IV SCH (11:15)
[2022-04-06] MEDS: MAGNESIUM SULFATE IN WATER 20 GM/500 ML IV.SOLN IV SCH ×2 (11:43→21:54)
[2022-04-06 17:27] LABS: BASOPHILS % (AUTO) 0.5 %; EOSINOPHILS # (AUTO) 0.4 10^3/uL (0.0-0.7); EOSINOPHILS % (AUTO) 4.7 %; HCT - HEMATOCRIT 23.5 % (37.0-47.0); HGB - HEMOGLOBIN 7.9 g/dL (12.0-16.0); MEAN CORPUSCULAR HEMOGLOBIN 32.4 pg (27.0-31.0); MEAN CORPUSCULAR HGB CONC 33.6 g/dL (32.0-36.0); MEAN CORPUSCULAR VOLUME 96.3 fL (81.0-99.0); MONOCYTES # (AUTO) 0.6 10^3/uL (0.0-1.0); MONOCYTES % (AUTO) 6.7 %; NEUTROPHILS # (AUTO) 5.1 10^3/uL (1.5-6.6); NEUTROPHILS % (AUTO) 62.9 %; NRBC ABSOLUTE COUNT (AUTO) 0.06 x10^3/uL; NUCLEATED RED BLOOD CELLS AUTO 0.7 /100WBC; PLT - PLATELET COUNT 278 10^3/uL (130-450); RED BLOOD COUNT 2.44 10^6/uL (4.20-5.40); RED CELL DISTRIBUTION WIDTH 13.2 % (12.0-15.0); WHITE BLOOD COUNT 8.2 x10^3/uL (4.8-10.8)
[2022-04-06 17:40] LABS: ALBUMIN 3.1 g/dL (3.2-5.5); ALBUMIN/GLOBULIN RATIO 0.9 (1.0-2.2); BILIRUBIN,TOTAL 0.4 mg/dL (0.2-1.0); CREATININE 0.4 mg/dL (0.4-1.0); MAGNESIUM 4.3 mg/dL (1.7-2.8); TOTAL PROTEIN 6.6 g/dL (6.7-8.2)
[2022-04-06] MEDS: LABETALOL 100 MG TABLET PO SCH (17:40)
[2022-04-06] MEDS: PRENATAL VITAMIN TABLET PO SCH (17:40)
[2022-04-07] MEDS: SIMETHICONE CHEW 80 MG TABLET PO SCH ×5 (02:16→21:08)
[2022-04-07] MEDS: IBUPROFEN 800 MG TABLET PO SCH ×3 (02:16→18:26)
[2022-04-07] MEDS: DOCUSATE SODIUM 100 MG CAPSULE PO SCH ×3 (02:17→21:08)
[2022-04-07] MEDS: ACETAMINOPHEN 500 MG TABLET PO SCH ×4 (02:17→18:26)
[2022-04-07] MEDS: MAGNESIUM SULFATE IN WATER 20 GM/500 ML IV.SOLN IV SCH (07:48)
[2022-04-07] MEDS: LABETALOL 100 MG TABLET PO SCH ×3 (07:52→21:08)
[2022-04-07] MEDS: FERROUS SULFATE 325 MG TABLET PO SCH ×2 (08:31→18:26)
[2022-04-07] MEDS: PRENATAL VITAMIN TABLET PO SCH (18:26)
--- NOTE | 2022-04-07 20:27 | PROVIDER PROGRESS NOTE ---
Subjective - Prog Note Date Prog Note Date: 04/07/22 Prog Note Time: 20:25 - Subjective Subjective: Late entry. Patient is doing well. Magnesium stopped at 11:20 am. BPs remain in mild range on labetalol 100 mg po bid. No PIH symptoms. Pumping going well. Baby still struggling with blood sugars. Objective - Vital Signs/Intake & Output Reviewed Vital Signs: Yes Vital Signs: Vital Signs x48h Temp Pulse Resp BP Pulse Ox 04/07/22 16:13 98.1 F 87 18 140/85 H 100 04/07/22 13:54 83 19 131/82 H 100 Intake & Output: Intake & Output 04/04/22 04/05/22 04/06/22 04/07/22 23:59 23:59 23:59 23:59 Intake Total 2665 800 1471 Output Total 2100 4300 4250 Balance 979 -3710 -3756 - Objective General Appearance: positive: No acute distress Respiratory: positive: No respiratory distress, Breath sounds nml Cardiovascular: positive: Regular rate & rhythm Abdomen: positive: Non-tender, No distention Skin: positive: Color nml Extremities: positive: Non-tender, No pedal edema Neurologic/Psychiatric: positive: Oriented x3 - Lab Results Fish Bones: 04/06/22 17:21 04/06/22 17:21 Assessment/Plan - Problem List (1) Gestational hypertension w/o significant proteinuria in 3rd trimester Impression: Magnesium stopped at 11:20 am BPs in mild range on labetalol 100 mg po bid Getting oral iron for acute blood loss anemia Will check labs in am Anticipate DC home vs boarding in am pending normal blood pressures. Rx for labetalol 100 mg po bid sent to [facility].
[2022-04-08] MEDS: IBUPROFEN 800 MG TABLET PO SCH ×2 (02:15→10:55)
[2022-04-08] MEDS: ACETAMINOPHEN 500 MG TABLET PO SCH ×2 (02:16→10:56)
[2022-04-08 05:58] LABS: BASOPHILS % (AUTO) 0.4 %; EOSINOPHILS # (AUTO) 0.4 10^3/uL (0.0-0.7); EOSINOPHILS % (AUTO) 4.5 %; HCT - HEMATOCRIT 24.4 % (37.0-47.0); HGB - HEMOGLOBIN 8.2 g/dL (12.0-16.0); LYMPHOCYTES # (AUTO) 2.4 10^3/uL (1.5-3.5); LYMPHOCYTES % (AUTO) 26.5 %; MEAN CORPUSCULAR HEMOGLOBIN 32.4 pg (27.0-31.0); MEAN CORPUSCULAR HGB CONC 33.6 g/dL (32.0-36.0); MEAN CORPUSCULAR VOLUME 96.4 fL (81.0-99.0); MEAN PLATELET VOLUME 9.1 fL (7.9-10.8); MONOCYTES # (AUTO) 0.7 10^3/uL (0.0-1.0); MONOCYTES % (AUTO) 7.4 %; NEUTROPHILS # (AUTO) 5.4 10^3/uL (1.5-6.6); NEUTROPHILS % (AUTO) 60.1 %; NRBC ABSOLUTE COUNT (AUTO) 0.05 x10^3/uL; NUCLEATED RED BLOOD CELLS AUTO 0.6 /100WBC; PLT - PLATELET COUNT 360 10^3/uL (130-450); RED BLOOD COUNT 2.53 10^6/uL (4.20-5.40); RED CELL DISTRIBUTION WIDTH 13.5 % (12.0-15.0); WHITE BLOOD COUNT 8.9 x10^3/uL (4.8-10.8)
[2022-04-08 06:09] LABS: ALBUMIN/GLOBULIN RATIO 0.9 (1.0-2.2); BILIRUBIN,TOTAL 0.6 mg/dL (0.2-1.0); CALCIUM 8.5 mg/dL (8.5-10.3); CREATININE 0.7 mg/dL (0.4-1.0); POTASSIUM 3.8 mmol/L (3.5-5.0); TOTAL PROTEIN 6.5 g/dL (6.7-8.2)
[2022-04-08] MEDS: DOCUSATE SODIUM 100 MG CAPSULE PO SCH (08:58)
[2022-04-08] MEDS: SIMETHICONE CHEW 80 MG TABLET PO SCH (08:58)
[2022-04-08] MEDS: FERROUS SULFATE 325 MG TABLET PO SCH (08:58)
[2022-04-08] MEDS: LABETALOL 100 MG TABLET PO SCH (08:59)
--- NOTE | 2022-04-08 10:23 | DISCHARGE SUMMARY ---
Discharge Summary Admit Date: 04/01/22 Discharge Date: 04/08/22 Discharging Provider: Anthony Sauceda MD Code Status: Attempt Resuscitation Condition at Discharge: Good Discharge Disposition: 01 Home, Self Care - DIAGNOSES Admission Diagnoses: 37 weeks gestation Gestational hypertension Mixed connective tissue disorder Discharge Diagnoses with Status of Each Condition: 37 weeks gestation Preeclampsia severe features Mixed connective tissue disorder Status post primary low-transverse section - HPI History of Present Illness: Subjective Patient reports she is doing well. Lochia appropriate. Denies heavy bleeding. Ambulating. Pelvic and abdominal pain well-controlled. Tolerating oral intake. Diet: Regular. Voiding without difficulty. Passing flatus. Denies BM. Patient is bonding with baby in room Breast feeding going well. Denies feeling lightheaded, dizzy or excessively fatigued. Objective General: Alert, oriented, no apparent distress. Cardiovascular: Regular rate. Regular rhythm. Lungs: No increased work of breathing. Abdomen: Uterus firm. Below umbilicus. No guarding or rebound. - HOSPITAL COURSE Hospital Course: Patient is a 26-year-old -0-3-1 who presented for induction of labor secondary to gestational hypertension with subsequently developed and preeclampsia with severe features. She was started on magnesium sulfate and required labetalol for blood pressure control. She is intermittently difficult blood pressures of the . Magnesium was stopped yesterday at 1120. Blood pressures since have been elevated, but not severe. She is taking labetalol 100 mg twice a day. Labor induction was started misoprostol following with a cervical ripening balloon. Oxytocin was then started after rupture of membranes, but she did not progress. She then underwent a primary low-transverse section. Postop erative course was normal other than the preeclampsia discussed above. On post day 5, blood pressure normalized and was discharged in stable condition remaining on her antihypertensives. weight: 2820 g - ALLERGIES Allergies/Adverse Reactions: Allergies Allergy/AdvReac Type Severity Reaction Status Date / Time fentanyl Allergy Unknown Verified 04/01/22 14:51 - MEDICATIONS Home Medications: Ambulatory Orders Medication Instructions Recorded Confirmed Vitamin [Trinatal Rx 1] 1 tab PO DAILYWM #10 tablet 04/01/20 Adalimumab [Humira] 40 mg SQ OAW 05/01/20 05/01/20 Acetaminophen [Acetaminophen Extra 1,000 mg PO Q8H PRN #60 tablet 04/06/22 Strength] Docusate Sodium 100Mg Capsule 100 - 200 mg PO BID PRN #60 cap 04/06/22 [Colace 100Mg Capsule] Ibuprofen [Motrin] 600 mg PO Q6H PRN #30 tab 04/06/22 oxyCODONE [Roxicodone] 2.5 - 5 mg PO Q4H PRN #24 tablet 04/06/22 Labetalol [Trandate] 100 mg PO BID #60 tablet 04/07/22 - LABS Result Diagrams: 04/08/22 05:32 04/08/22 05:32 - FOLLOW UP Follow Up: In 1 week with [facility] women's care with Dr. Sauceda - TIME SPENT Time Spent in Discharge (Minutes): 25
--- NOTE | 2022-04-08 10:24 | Discharge Plan ---
Discharge Plan Problem Reviewed?: Yes Disposition: Home, Self Care Condition: Good Prescriptions: Acetaminophen [Acetaminophen Extra Strength] 1,000 mg PO Q8H PRN #60 tablet PRN Reason: Pain Docusate Sodium 100Mg Capsule [Colace 100Mg Capsule] 100 - 200 mg PO BID PRN #60 cap PRN Reason: Constipation Ibuprofen [Motrin] 600 mg PO Q6H PRN #30 tab PRN Reason: Pain oxyCODONE [Roxicodone] 2.5 - 5 mg PO Q4H PRN #24 tablet PRN Reason: Severe Pain Labetalol [Trandate] 100 mg PO BID #60 tablet Instruction Topics: C Section Dc No Smoking: If you smoke, Please STOP! Call for help. Follow-up with: Anthony Sauceda MD [Provider Admit Priv/Credential] -
[2022-04-08 13:01] VITALS: BP 131/85
--- NOTE | 2022-04-08 17:15 | Labor Flowsheet ---
Labor Flowsheet Datetime Report Generated by CPN: 04/08/2022 17:15 Datetime: 04/03/2022 16:22 UTERINE ACTIVITY Monitor Mode: Internal Frequency (min): 3-6 Quality: Moderate Duration (sec): 60-150 Pattern: Normal: <= 5 Contractions in 10 Minutes Resting Tone (Palpate): Relaxed ASSESSMENT A Monitor Mode: External US FHR Baseline Rate : 125 Variability: Moderate 6-25 bpm Accelerations: None Decelerations: None Category: Category I Comments: monitors removed for transport to [place] Datetime: 04/03/2022 16:20 Pulse: 81 SpO2 (%): 100 LaborFlag: Labor Datetime: 04/03/2022 16:16 VITAL SIGNS NBP Sys/Andreia/Mean (mmHg): 164 : 105 : 121 Datetime: 04/03/2022 16:00 Temperature (C): 36.9 Datetime: 04/03/2022 15:47 Magnesium/Antihypertensives: Procardia PO (mg) @ 30 Antiemetics/Antacids: Zofran (mg) @ 4 Datetime: 04/03/2022 15:35 MEDICATIONS Pitocin (milliunits): Discontinued Datetime: 04/03/2022 15:33 Medication Comments: Mag sulfate titrated to 2gm/hour per Dr. Cayabyab's verbal order Datetime: 04/03/2022 15:30 Patient Care Comments: c/s called Datetime: 04/03/2022 15:12 VAGINAL EXAM Dilatation (cm): 7.0 Effacement (%): 75 Station: -2 Exam by: Dr. Cayabyab Datetime: 04/03/2022 14:59 Antibiotics: Ampicillin IV 1 Gm Datetime: 04/03/2022 14:01 Respirations: 20 Temperature Route: Oral Datetime: 04/03/2022 13:55 PAIN Pain Scale: 2 Datetime: 04/03/2022 13:41 Anesthesia Comments: [employer]AL [employer] Leonila @ bedside Datetime: 04/03/2022 13:24 Stage of : Labor Pain Presence: Intermittent Pain Type: Cramping; Contraction Pain Location: Abdomen COMMUNICATION Communication: Call/Page Placed to Provider Provider Notified (Name): [employer]AL [employer] Leonila Notification Reason: Pain; Patient Request Communication Comments: Requested provider to bedside for epidural eval d/t pt c/o 6/10 pain Datetime: 04/03/2022 12:25 Monitor Interventions for FHR: Ultrasound Adjusted Datetime: 04/03/2022 12:21 Patient Position/Activity: Left Lateral Datetime: 04/03/2022 11:35 Vaginal Exam Comments: SVE done d/t patient c/o constant pressure Datetime: 04/03/2022 11:30 Intensity IUP (mmHg): 110 Datetime: 04/03/2022 10:45 Contraction Comments: coupling noted Datetime: 04/03/2022 08:00 Analgesics/Sedatives: Tylenol (mg) @ 1000 Datetime: 04/03/2022 07:03 Membranes Ruptured Date/Time: 04/03/2022 01:10 Datetime: 04/03/2022 07:01 Vital Sign Comments: Datetime: 04/03/2022 07:00 Resting Tone IUP (mmHg): 5-8 FHR Baseline Changes: No Baseline Change Datetime: 04/03/2022 06:30 Pitocin Checklist: At Least 1 Acceleration of 15 bpm x 15 Seconds in 30 Minutes or Adequate Variabi lity; No More than 1 Late Deceleration Occurred in Past 30 Minutes; No More than 2 Variable Decelerat ions > 60 Seconds in Duration and decreasing >60 bpm in 30 minutes; No More than 5 Uterine Contractio ns in 10 Minutes for any 20 Minute Interval; Uterus Palpates Soft between Contractions; IUPC Resting Tone less than 25 mmHg Datetime: 04/03/2022 06:15 Pain Goal: 5 Pain Relief Measures: Epidural Given Pain Coping: Breathing Through Contractions Anesthesia Level Check: T5 Datetime: 04/03/2022 04:05 Epidural Procedure: Loading Dose Datetime: 04/03/2022 04:00 I/O Interventions: Clear Liquids Given (Annotations: 350ml PO) TEACHING Instructional Method: Verbal; Patient Instructed; Verbalized Understanding Plan of Care: Plan of Care Discussed Unit Routine: IV Pumps; Safety/Fall Risk Prevention Labor/Induction: Activity Pain Management: Epidural; Pain Scale/Goals Datetime: 04/03/2022 03:51 PROCEDURE TIME OUT Procedure Type: 0352 Procedure Verify: Correct Patient Identity; Correct Side and Site are Marked; Accurate Procedure Co nsent Form; Agreement on Procedure to be Done; Correct Patient Position; Addressed Need to Administer Antibiotics or Fluids for Irrigation; Safety Precautions Based on Patient History or Medication Use ANESTHESIA Anesthesia Plans: Epidural Epidural Positioning: Sitting Datetime: 04/03/2022 03:40 Provider Reviewed Strip: No Datetime: 04/03/2022 03:02 MATERNAL ASSESSMENT Level of Consciousness: Alert DTR's/Clonus: DTRs 3+; 1 Beat Clonus; 2 Beats Clonus Headache: Denies Nausea/Vomiting: Denies RUQ Epigastric Pain: Denies Datetime: 04/03/2022 03:00 Monitor Interventions for UA: IUPC Inserted Datetime: 04/03/2022 01:10 Membrane Status: Ruptured Membranes Rupture Method: Spontaneous Amniotic Fluid Color: Clear Amniotic Fluid Amount: Large Amniotic Fluid Odor: Normal Nitrazine: Positive Datetime: 04/02/2022 23:30 Breath Sounds, Left: Clear and Equal Breath Sounds, Right: Clear and Equal Oxygen Method: Room Air Datetime: 04/02/2022 19:50 Pain Assessment Comments: pt standing at bedside Datetime: 04/02/2022 13:34 Cervical Ripening Agents: Perez Balloon; Cytotec @ Datetime: 04/02/2022 09:04 PATIENT CARE IV/Blood Work: IV Infusing per Order; New IV Bag Hung; IV Bag Number @ 1 Datetime: 04/02/2022 02:35 Vaginal Bleeding: None Cervix, Consistency: Soft Cervix, Position: Midposition
== END 2022-04-08 15:30 | disposition home or self-care (01) | DRG 787 ==
LOC: WFO 13:48 → FBP 13:54 → WFO 13:59 → FBP 14:00 → OBSVTOIN 04-02 18:20 → FBP 04-03 16:30
PROVIDERS: ADMIT Obstetrics & Gynecology; ATTEND Obstetrics & Gynecology
PROC: 10H07YZ Insertion of Other Device into Products of Conception, Via Natural or Artificial Opening (ICD-10-PCS; 2022-04-03)
PROC: 10D00Z1 Extraction of Products of Conception, Low, Open Approach (ICD-10-PCS; principal; 2022-04-03 16:00)
DX: O14.14 Severe pre-eclampsia complicating childbirth (principal); D62 Acute posthemorrhagic anemia; M35.1 Other overlap syndromes; O99.344 Other mental disorders complicating childbirth; F41.9 Anxiety disorder, unspecified; O99.824 Streptococcus B carrier state complicating childbirth; Z3A.37 37 weeks gestation of pregnancy; Z37.0 Single live birth; O62.9 Abnormality of forces of labor, unspecified; O90.81 Anemia of the puerperium; O99.892 Other specified diseases and conditions complicating childbirth; F60.3 Borderline personality disorder; O99.214 Obesity complicating childbirth
CPT/HCPCS: 36415; 80053; 82570; 83735; 84156; 85025; 85027; 86850; 86900; 86901; A9270; G0378; J1200; J2274; J2765; J7120; J3475

== ENCOUNTER → 2023-01-22 | Outpatient (CLI) | payer OTHER | END | disposition EMS.NT | LOC: EMS 01:17 | DX: Z03.89 Encounter for observation for other suspected diseases and conditions ruled out (principal) ==

== ENCOUNTER 2023-11-26 11:30 | Outpatient (CLI) | payer OTHER | END 2023-11-26 11:45 | disposition home or self-care (01) | LOC: LAB.N 11:30 | PROVIDERS: ATTEND Nurse Practitioner | DX: N39.0 Urinary tract infection, site not specified (principal) | CPT/HCPCS: 87077; 87086; 87181 ==